=== PATIENT | female | born 1935 | race African-American/Black ===

== ENCOUNTER 2017-02-04 10:28 | Inpatient (IN) | payer MEDICARE, BC, MEDICAID ==
--- NOTE | 2017-02-04 10:47 | ER Document Report ---
ED Fall - General Information source: Emergency Med Personnel, Outside Facility Records TRAVEL OUTSIDE OF THE [place] IN LAST 30 DAYS: No - HPI Occurred: Just prior to arrival Where: Intermediate Context: Fell from sitting <NAZANIN NIELSON - Last Filed: 02/04/17 11:58> <RONALD RODRIGUEZ - Last Filed: 02/04/17 15:14> - General Chief Complaint: Fall Injury Stated Complaint: FALL Time Seen by Provider: 02/04/17 10:42 Notes: Patient is an 81 year old female who presents to the ED via EMS from [place] after a fall out of her wheelchair. LOC is unknown but patient was awake when she was found by nursing staff. Patient has frequent falls and the only reason she was sent to the ED for evaluation was due to the large bump on her forehead. Unable to obtain accurate history form patient as she is demented and only knows her name. (NAZANIN NIELSON) - Related data Allergies/Adverse Reactions: No Known Allergies Allergy (Verified 02/04/17 10:40) Home Medications: Current Home Medications Levothyroxine Sodium [Synthroid] 62.5 mcg PO SUTUTHSA@0600 02/04/17 [History] Past Medical History - General Information source: Patient - Social History Smoking Status: Unknown if Ever Smoked Family History: Reviewed & Not Pertinent - Past Medical History Cardiac Medical History: Reports: Hx Hypercholesterolemia, Hx Hypertension Denies: Hx Coronary Artery Disease, Hx Heart Attack Pulmonary Medical History: Reports: Hx Pneumonia Denies: Hx Asthma, Hx Bronchitis, Hx COPD Neurological Medical History: Denies: Hx Cerebrovascular Accident, Hx Seizures Musculoskeltal Medical History: Reports Hx Arthritis Psychiatric Medical History: Reports: Hx Dementia Past Surgical History: Reports: Hx Hysterectomy - Immunizations Hx Diphtheria, Pertussis, Tetanus Vaccination: Yes Hx Pneumococcal Vaccination: 10/16/13 <NAZANIN NIELSON - Last Filed: 02/04/17 11:58> Review of Systems - Review of Systems -: Yes ROS unobtainable due to patient's medical condition <NAZANIN NIELSON - Last Filed: 02/04/17 11:58> Physical Exam - HEENT Head: Abrasions - to right forehead, Other - hematoma to right forehead Eyes: Normal Extraocular movements intact: Yes Pupils: PERRL - Respiratory Respiratory status: No respiratory distress Breath sounds: Normal - Cardiovascular Rhythm: Regular Heart sounds: Normal auscultation Murmur: No - Abdominal Inspection: Normal Distension: No distension Tenderness: Nontender - Back Back: Normal - Extremities General upper extremity: Normal inspection, Normal ROM General lower extremity: Normal inspection, Normal ROM - Neurological Cognition: Other - oriented to person only, does not know anything else secondary to dementia - Psychological Associated symptoms: Other - demented - Skin Skin Temperature: Warm Skin Moisture: Dry Skin Color: Normal Skin irregularity: other - hematoma and abrasion to right forehead <ALVINO NIELSONRA - Last Filed: 02/04/17 11:58> - Vital signs Vitals: Temp Pulse Resp BP Pulse Ox 97.6 F 75 16 164/76 H 99 02/04/17 10:36 02/04/17 10:36 02/04/17 10:36 02/04/17 10:36 02/04/17 10:36 Course - Laboratory Result Diagrams: 02/04/17 10:50 02/04/17 10:50 - Consults Dr. Chowdhury Time consulted: 11:41 Consulted provider: will see as inpatient <NAZANIN NIELSON - Last Filed: 02/04/17 11:58> - Laboratory Result Diagrams: 02/04/17 10:50 02/04/17 10:50 - Diagnostic Test Radiology reviewed: Image reviewed, Reports reviewed <RONALD RODRIGUEZ - Last Filed: 02/04/17 15:14> - Re-evaluation Re-evalutation: 02/04/17 Patient is an 81-year-old female with a history of dementia who presents after hitting her head after falling out of her wheelchair. Patient is DNR. Patient is unable to have any discussion about her head injury. I spoken with her primary care doctor who will admit the patient here to observe her and recommend starting her on dexamethasone. Stable at time of admission. Patient has no complaints at this time. Vitals are stable. Patient's daughter, Cinthya,has been contacted and informed of diagnosis and treatment plan. Agrees with plan at this time. (RONALD RODRIGUEZ) - Vital Signs Vital signs: Temp Pulse Resp BP Pulse Ox 97.8 F 72 16 148/72 H 99 02/04/17 14:55 02/04/17 14:55 02/04/17 14:55 02/04/17 14:55 02/04/17 14:55 - Laboratory Laboratory results interpreted by me: 02/04/17 02/04/17 10:50 10:50 MCH 26.6 L RDW 15.9 H Sodium 145.5 H Carbon Dioxide 31 H BUN 24 H Glucose 125 H - Consults Dr. Chowdhury Reason for consultation: 02/04/17 1141 Discussed patient. Patient is accepted for admission. (NAZANIN NIELSON) Discharge <NAZANIN NIELSON - Last Filed: 02/04/17 11:58> - Discharge Admitting Provider: [facility] Admitted: Telemetry <RONALD RODRIGUEZ - Last Filed: 02/04/17 15:14> - Discharge Clinical Impression: Subdural hematoma Fall Qualifiers: Encounter type: initial encounter Qualified Code(s): W19.XXXA - Unspecified fall, initial encounter Condition: Stable Disposition: ADMITTED INPATIENT Scribe Attestation: 02/04/17 15:13 I personally performed the services described in the documentation, reviewed and edited the documentation which was dictated to the scribe in my presence, and it accurately records my words and actions. (RONALD RODRIGUEZ) Scribe Documentation - Scribe Written by Scribe:: gail Dempsey, 02/04/2017, 1047 acting as scribe for :: Corine <NAZANIN NIELSON - Last Filed: 02/04/17 11:58>
[2017-02-04 11:09] LABS: ABSOLUTE EOSINOPHILS # (AUTO) 0.3 10^3/uL (0.0-0.6); ABSOLUTE LYMPHOCYTES (AUTO) 1.7 10^3/uL (0.5-4.7); ABSOLUTE MONOCYTES (AUTO) 0.6 10^3/uL (0.1-1.4); ABSOLUTE NEUT (AUTO) 4.3 10^3/uL (1.7-8.2); BASOPHILS % (AUTO) 0.4 % (0-2); EOSINOPHILS % (AUTO) 4.6 % (0-6); HEMATOCRIT 37.2 % (36.0-47.0); HGB HCT DIFFERENCE -1.2; LYMPHOCYTES % (AUTO) 24.1 % (13-45); MEAN CORPUSCULAR HEMOGLOBIN 26.6 pg (27.0-33.4); MEAN CORPUSCULAR HGB CONC 32.3 g/dL (32.0-36.0); MEAN CORPUSCULAR VOLUME 82 fl (80-97); MONOCYTES % (AUTO) 9.3 % (3-13); RED BLOOD COUNT 4.53 10^6/uL (3.72-5.28); RED CELL DISTRIBUTION WIDTH 15.9 % (11.5-14.0); SEGMENTED NEUTROPHILS % (AUTO) 61.6 % (42-78)
[2017-02-04 11:17] LABS: PROTHROMBIN TIME 12.7 SEC (11.4-15.4)
[2017-02-04 11:18] LABS: PARTIAL THROMBOPLASTIN TIME 31.4 SEC (23.5-35.8)
[2017-02-04 11:33] LABS: ALANINE AMINOTRANSFERASE 30 U/L (9-52); ALBUMIN 4.1 g/dL (3.5-5.0); ALKALINE PHOSPHATASE 88 U/L (38-126); ANION GAP 11 (5-19); ASPARTATE AMINO TRANSFERASE 25 U/L (14-36); BILIRUBIN,DIRECT 0.3 mg/dL (0.0-0.4); BILIRUBIN,TOTAL 0.3 mg/dL (0.2-1.3); BLOOD UREA NITROGEN 24 mg/dL (7-20); CALCIUM 9.9 mg/dL (8.4-10.2); CARBON DIOXIDE 31 mmol/L (22-30); CHLORIDE 104 mmol/L (98-107); CREATININE RESULT 0.81 mg/dL (0.52-1.25); GLUCOSE 125 mg/dL (75-110); POTASSIUM 4.1 mmol/L (3.6-5.0); SODIUM 145.5 mmol/L (137-145); TOTAL PROTEIN 6.7 g/dL (6.3-8.2)
[2017-02-04] MEDS ORDERED: DEXAMETHASONE 0.5 MG TABLET PO ONE (11:43)
--- NOTE | 2017-02-04 11:47 | RADIOLOGY REPORT (SQ) ---
EXAM DESCRIPTION: CT HEAD WITHOUT COMPLETED DATE/TIME: 02/04/2017 11:13 am REASON FOR STUDY: fall, head injury COMPARISON: 04/01/2015 TECHNIQUE: Axial images acquired through the brain without intravenous contrast. Images reviewed wi th bone, brain and subdural windows. Images stored on PACS. All CT scanners at this facility use dose modulation, iterative reconstruction, and/or weight based d osing when appropriate to reduce radiation dose to as low as reasonably achievable (ALARA). [facility]: Dose Right [facility]: CareDose [facility]: Dose Right [facility]: Teradose 4D [facility]: [employer] RADIATION DOSE: Up-to-date CT equipment and radiation dose reduction techniques were employed. CTDIv ol: 28.0 mGy. DLP: 560 mGy-cm. mGy. LIMITATIONS: None. FINDINGS: VENTRICLES: Mildly prominent, stable compared to 04/01/2015. CEREBRUM: No acute brain parenchymal hemorrhage. No CT evidence of acute ischemic change. There is a right-sided subdural hemorrhage measuring up to 11 mm in thick over the right frontotempor al region. Minimal local mass effect. No subfalcine shift. CEREBELLUM: No masses. No hemorrhage. No alteration of density. No evidence for acute infarction. EXTRAAXIAL SPACES: A right frontotemporal acute subdural hemorrhage is present, measuring up to 11 mm in thickness over the right posterior frontal convexity. This report was called to Dr. Pool, 11 30 hours 02/12/2017. ORBITS AND GLOBE: No intra- or extraconal masses. Normal contour of globe without masses. CALVARIUM: No fracture. PARANASAL SINUSES: No fluid or mucosal thickening. SOFT TISSUES: Right frontal scalp hematoma. No underlying skull fracture. OTHER: No other significant finding. IMPRESSION: Right fronto temporal acute subdural hemorrhage measuring 11 mm in thickness. Right frontal scalp hematoma without underlying skull fracture EVIDENCE OF ACUTE STROKE: NO. COMMENT: Pertinent findings on the imaging study reported as a CRITICAL RESULT to RONALD Nevarez DO at11:31 on 02/04/2017. Category of Critical Result: Right-sided acute subdural hemorrhage Quality ID # [id number]: Final reports with documentation of one or more dose reduction techniques (e.g., Au tomated exposure control, adjustment of the mA and/or kV according to patient size, use of iterative reconstruction technique) TECHNICAL DOCUMENTATION: JOB ID: [id number] [place] [address] [employer]- All Rights Reserved
[2017-02-04] MEDS ORDERED: GLUCAGON,HUMAN RECOMB 1 MG INJ IM PRN (17:32)
[2017-02-04] MEDS ORDERED: DEXTROSE 50%-WATER 25 GM/50 ML DISP.SYRIN IV PRN ×2 (17:32)
[2017-02-04] MEDS ORDERED: DEXTROSE 40% GEL 15 GM TUBE PO PRN ×2 (17:32)
[2017-02-04] MEDS ORDERED: TRAMADOL HCL 50 MG TABLET PO PRN (17:32)
[2017-02-04 18:14] LABS: PROTHROMBIN TIME 12.9 SEC (11.4-15.4)
[2017-02-04 18:15] LABS: PARTIAL THROMBOPLASTIN TIME 34.5 SEC (23.5-35.8)
--- NOTE | 2017-02-04 18:23 | PDOC H&P ---
History of Present Illness Admission Date/PCP: 02/04/17 17:23 FRANCISCO RUANO MD History of Present Illness: ZACK PAZ is a 81 year old female, she has advanced dementia resident of the [facility] at [place], a fall risk, she was found on the floor in the [facility], she apparently fell on the face she was referred to the emergency room for evaluation. In the emergency room CT head was done it showed a right frontal temporal acute subdural hemorrhage measuring 11 mm in thickness with right frontal scalp hematoma there was no skull fracture. Patient is severely demented, a DNR status could not communicate intelligently with this patient she is expressing incompressible words. I spoke to the patient's daughter about her mother's condition, she would manage conservatively with intravenous Decadron she is not particularly a candidate for intracranial surgery overall prognosis is guarded to poor.. Past Medical History Cardiac Medical History: Reports: Hyperlipidema, Hypertension Pulmonary Medical History: Reports: Pneumonia Endocrine Medical History: Reports: Diabetes Mellitus Type 2 Musculoskeltal Medical History: Reports: Arthritis Psychiatric Medical History: Reports: Dementia Hematology: Reports: Anemia Past Surgical History Past Surgical History: Reports: Hysterectomy Social History Lives with: [facility] Smoking Status: Never Smoker - Advance Directive Resuscitation Status: Do Not Resuscitate Family History Family History: Reviewed & Not Pertinent Parental Family History Reviewed: Yes Children Family History Reviewed: Yes Sibling(s) Family History Reviewed.: Yes Medication/Allergy Home Medications: Amlodipine Besylate [Norvasc 5 mg Tablet] 5 mg PO DAILY 12/14/14 Donepezil HCl [Aricept] 10 mg PO QHS 12/14/14 Folic Acid [Folvite 1 mg Tablet] 1 mg PO DAILY 12/14/14 Insulin Aspart [Novolog Insulin 100 Unit/1 ml 10 ml] 0 unit SUBCUT .SLD SCALE Levothyroxine Sodium [Synthroid 50 Mcg Tablet] 50 mcg PO MOWEFR@0600 12/14/14 Memantine HCl [Namenda 10 mg Tablet] 10 mg PO Q12 12/14/14 Metformin HCl [Glucophage 500 mg Tablet] 500 mg PO Q12 12/14/14 Potassium Chloride 20 meq PO BID 12/14/14 Quetiapine Fumarate [Seroquel 25 mg Tablet] 12.5 mg PO QHS 12/14/14 Sennosides/Docusate Sodium [Senna-S Tablet] 1 each PO Q12 12/14/14 Rosuvastatin Calcium [Crestor 20 mg Tablet] 20 mg PO QHS 11/20/15 Levothyroxine Sodium [Synthroid] 62.5 mcg PO SUTUTHSA@0600 02/04/17 Allergies/Adverse Reactions: No Known Allergies Allergy (Verified 02/04/17 10:40) Review of Systems ROS unobtainable: Due to mental status Physical Exam Vital Signs: Temp Pulse Resp BP Pulse Ox 97.4 F 81 18 131/85 H 97 02/04/17 17:01 02/04/17 17:01 02/04/17 17:01 02/04/17 17:01 02/04/17 17:01 General appearance: PRESENT: no acute distress, well-developed, well-nourished Head exam: PRESENT: other - There is a bruise in the frontal aspect of the head Eye exam: ABSENT: scleral icterus Ear exam: PRESENT: normal external ear exam Respiratory exam: PRESENT: clear to auscultation sandra Cardiovascular exam: PRESENT: RRR, +S1, +S2 Vascular exam: PRESENT: normal capillary refill GI/Abdominal exam: PRESENT: normal bowel sounds, soft Rectal exam: PRESENT: deferred Neurological exam: PRESENT: alert, CN II-XII grossly intact. ABSENT: motor sensory deficit Skin exam: PRESENT: dry, intact, warm Results Impressions: Head CT 02/04/17 10:42 IMPRESSION: Right fronto temporal acute subdural hemorrhage measuring 11 mm in thickness. Right frontal scalp hematoma without underlying skull fracture EVIDENCE OF ACUTE STROKE: NO. Assessment & Plan - Diagnosis (1) Acute subdural hematoma Is this a current diagnosis for this admission?: Yes Plan: Patient is admitted for the management of acute subdural hemorrhage, she is started on intravenous Decadron and also Keppra for seizure prophylaxis (2) Subdural hematoma, post-traumatic Qualifiers: Encounter type: initial encounter Loss of consciousness presence/duration: without LOC Qualified Code(s): S06.5X0A - Traumatic subdural hemorrhage without loss of consciousness, initial encounter Is this a current diagnosis for this admission?: Yes (3) Fall Qualifiers: Encounter type: initial encounter Qualified Code(s): W19.XXXA - Unspecified fall, initial encounter Is this a current diagnosis for this admission?: Yes
[2017-02-04 18:39] LABS: LIPASE 119.5 U/L (23-300); MAGNESIUM 1.9 mg/dL (1.6-2.3); PHOSPHORUS 3.9 mg/dL (2.5-4.5)
[2017-02-04 18:49] LABS: CREATINE KINASE MB 2.48 ng/mL (<4.55)
[2017-02-04 18:51] LABS: TROPONIN I < 0.012 ng/mL
[2017-02-04 19:07] LABS: THYROID STIMULATING HORMONE 0.4 uIU/mL (0.47-4.68)
[2017-02-04 19:52] LABS: APPEARANCE,URINE CLEAR; BILIRUBIN,URINE NEGATIVE (NEGATIVE); GLUCOSE, URINE NEGATIVE (NEGATIVE); KETONES,URINE NEGATIVE (NEGATIVE); LEUKOCYTE ESTERASE,URINE NEGATIVE (NEGATIVE); NITRITE,URINE NEGATIVE (NEGATIVE); PROTEIN,URINE 30 mg/dL (NEGATIVE); URINE SPECIFIC GRAVITY 1.014; UROBILINOGEN,URINE NEGATIVE mg/dL (<2.0)
[2017-02-04 20:07] LABS: URINE BARBITURATES SCREEN NEGATIVE; URINE METHADONE SCREEN NEGATIVE; URINE OPIATES LOW NEGATIVE; URINE PHENCYCLIDINE SCREEN NEGATIVE
[2017-02-04] MEDS: AMLODIPINE BESYLATE 5 MG TABLET PO SCH (21:40)
[2017-02-04] MEDS: QUETIAPINE FUMARATE 25 MG TABLET PO SCH (21:41)
[2017-02-04] MEDS: DONEPEZIL HCL 5 MG TABLET PO SCH (21:41)
[2017-02-04] MEDS: FOLIC ACID 1 MG TABLET PO SCH (21:42)
[2017-02-04] MEDS: MEMANTINE HCL 10 MG TABLET PO SCH (21:42)
[2017-02-04] MEDS: METFORMIN HCL 500 MG TABLET PO SCH (21:42)
[2017-02-04] MEDS: DEXAMETHASONE SOD PHOSPHATE INJ 4 MG/1 ML VIAL IV SCH (21:42)
[2017-02-04] MEDS: LEVETIRACETAM 500 MG TABLET PO SCH (21:42)
[2017-02-04] MEDS ORDERED: (PENDING PHARMACY ID) (Donepezil Hcl [Aricept] 10 MG) PO SCH (22:00)
[2017-02-04] MEDS: INSULIN LISPRO 100 UNIT/ML 3 ML VIAL SUBCUT PRN (22:21)
[2017-02-05 00:21] LABS: CREATINE KINASE MB 2.18 ng/mL (<4.55)
[2017-02-05 00:41] LABS: TROPONIN I < 0.012 ng/mL
[2017-02-05] MEDS: DEXAMETHASONE SOD PHOSPHATE INJ 4 MG/1 ML VIAL IV SCH ×4 (03:29→22:48)
[2017-02-05] MEDS ORDERED: LEVOTHYROXINE SODIUM PO SCH (06:00)
[2017-02-05 06:41] LABS: ABSOLUTE LYMPHOCYTES (AUTO) 0.9 10^3/uL (0.5-4.7); ABSOLUTE MONOCYTES (AUTO) 0.1 10^3/uL (0.1-1.4); ABSOLUTE NEUT (AUTO) 7.9 10^3/uL (1.7-8.2); BASOPHILS % (AUTO) 0.3 % (0-2); EOSINOPHILS % (AUTO) 0.1 % (0-6); HEMATOCRIT 35.4 % (36.0-47.0); HEMOGLOBIN 11.4 g/dL (12.0-15.5); HGB HCT DIFFERENCE -1.2; LYMPHOCYTES % (AUTO) 9.6 % (13-45); MEAN CORPUSCULAR HEMOGLOBIN 26.3 pg (27.0-33.4); MEAN CORPUSCULAR HGB CONC 32.2 g/dL (32.0-36.0); MEAN CORPUSCULAR VOLUME 82 fl (80-97); MONOCYTES % (AUTO) 1.4 % (3-13); RED BLOOD COUNT 4.34 10^6/uL (3.72-5.28); RED CELL DISTRIBUTION WIDTH 15.9 % (11.5-14.0); SEGMENTED NEUTROPHILS % (AUTO) 88.6 % (42-78); WHITE BLOOD COUNT 8.9 10^3/uL (4.0-10.5)
[2017-02-05 06:54] LABS: ALANINE AMINOTRANSFERASE 25 U/L (9-52); ALBUMIN 4.3 g/dL (3.5-5.0); ALKALINE PHOSPHATASE 94 U/L (38-126); ANION GAP 14 (5-19); ASPARTATE AMINO TRANSFERASE 25 U/L (14-36); BILIRUBIN,DIRECT 0.4 mg/dL (0.0-0.4); BILIRUBIN,TOTAL 0.4 mg/dL (0.2-1.3); BLOOD UREA NITROGEN 23 mg/dL (7-20); CARBON DIOXIDE 25 mmol/L (22-30); CHLORIDE 102 mmol/L (98-107); CREATINE KINASE 134 U/L (30-135); CREATININE RESULT 0.81 mg/dL (0.52-1.25); GLUCOSE 141 mg/dL (75-110); POTASSIUM 4.5 mmol/L (3.6-5.0); SODIUM 141.2 mmol/L (137-145); TOTAL PROTEIN 7.1 g/dL (6.3-8.2)
[2017-02-05 07:01] LABS: CREATINE KINASE MB 1.79 ng/mL (<4.55)
[2017-02-05 07:05] LABS: TROPONIN I < 0.012 ng/mL
[2017-02-05] MEDS: LEVETIRACETAM 500 MG TABLET PO SCH ×2 (09:59→22:48)
[2017-02-05] MEDS: METFORMIN HCL 500 MG TABLET PO SCH ×2 (10:01→22:48)
[2017-02-05] MEDS: MEMANTINE HCL 10 MG TABLET PO SCH ×2 (10:01→22:48)
[2017-02-05] MEDS: INSULIN LISPRO 100 UNIT/ML 3 ML VIAL SUBCUT PRN (13:01)
--- NOTE | 2017-02-05 21:04 | PDOC PROGRESS REPORT ---
Subjective Progress Note for:: 02/05/17 Subjective:: Patient was admitted because of subdural hematoma, she is on intravenous Decadron, she was seen by the bedside, she is alert Physical Exam Vital Signs: Temp Pulse Resp BP Pulse Ox 97.6 F 81 16 86/37 L 100 02/05/17 20:00 02/05/17 20:00 02/05/17 20:00 02/05/17 20:00 02/05/17 12:13 Intake & Output 02/04/17 02/05/17 02/06/17 06:59 06:59 06:59 Intake Total 0 420 Output Total 220 Balance -220 420 Weight 48.3 kg General appearance: PRESENT: no acute distress Eye exam: PRESENT: PERRLA Respiratory exam: PRESENT: clear to auscultation sandra Cardiovascular exam: PRESENT: +S1, +S2 GI/Abdominal exam: PRESENT: soft Neurological exam: PRESENT: alert Results Laboratory Results: 02/05/17 05:51 02/05/17 05:51 02/05/17 02/05/17 05:51 05:51 WBC 8.9 RBC 4.34 Hgb 11.4 L Hct 35.4 L MCV 82 MCH 26.3 L MCHC 32.2 RDW 15.9 H Plt Count 260 Seg Neutrophils % 88.6 H Lymphocytes % 9.6 L Monocytes % 1.4 L Eosinophils % 0.1 Basophils % 0.3 Absolute Neutrophils 7.9 Absolute Lymphocytes 0.9 Absolute Monocytes 0.1 Absolute Eosinophils 0.0 Absolute Basophils 0.0 Sodium 141.2 Potassium 4.5 Chloride 102 Carbon Dioxide 25 Anion Gap 14 BUN 23 H Creatinine 0.81 Est GFR ( Amer) > 60 Est GFR (Non-Af Amer) > 60 Glucose 141 H Calcium 10.0 Total Bilirubin 0.4 AST 25 ALT 25 Alkaline Phosphatase 94 Total Protein 7.1 Albumin 4.3 02/04/17 02/04/17 02/04/17 17:51 17:51 17:51 Creatine Kinase 161 H CK-MB (CK-2) 2.48 Troponin I < 0.012 NT-Pro-B Natriuret Pep 200 02/04/17 02/04/17 02/05/17 23:44 23:44 05:51 Creatine Kinase 152 H 134 CK-MB (CK-2) 2.18 Troponin I < 0.012 NT-Pro-B Natriuret Pep 02/05/17 05:51 Creatine Kinase CK-MB (CK-2) 1.79 Troponin I < 0.012 NT-Pro-B Natriuret Pep Impressions: Head CT 02/04/17 10:42 IMPRESSION: Right fronto temporal acute subdural hemorrhage measuring 11 mm in thickness. Right frontal scalp hematoma without underlying skull fracture EVIDENCE OF ACUTE STROKE: NO. Assessment & Plan - Diagnosis (1) Acute subdural hematoma Is this a current diagnosis for this admission?: Yes (2) Subdural hematoma, post-traumatic Qualifiers: Encounter type: initial encounter Loss of consciousness presence/duration: without LOC Qualified Code(s): S06.5X0A - Traumatic subdural hemorrhage without loss of consciousness, initial encounter Is this a current diagnosis for this admission?: Yes (3) Fall Qualifiers: Encounter type: initial encounter Qualified Code(s): W19.XXXA - Unspecified fall, initial encounter Is this a current diagnosis for this admission?: Yes Plan: Continue treatment
[2017-02-05] MEDS: AMLODIPINE BESYLATE 5 MG TABLET PO SCH (22:08)
[2017-02-05] MEDS: QUETIAPINE FUMARATE 25 MG TABLET PO SCH (22:48)
[2017-02-05] MEDS: DONEPEZIL HCL 5 MG TABLET PO SCH (22:48)
[2017-02-05] MEDS: FOLIC ACID 1 MG TABLET PO SCH (22:50)
[2017-02-06] MEDS: DEXAMETHASONE SOD PHOSPHATE INJ 4 MG/1 ML VIAL IV SCH ×4 (03:04→20:53)
[2017-02-06] MEDS: LEVOTHYROXINE SODIUM 0.05 MG TABLET PO SCH (06:28)
[2017-02-06 06:30] LABS: ABSOLUTE MONOCYTES (AUTO) 0.4 10^3/uL (0.1-1.4); ABSOLUTE NEUT (AUTO) 14.4 10^3/uL (1.7-8.2); BASOPHILS % (AUTO) 0.1 % (0-2); HEMATOCRIT 32.8 % (36.0-47.0); HEMOGLOBIN 10.5 g/dL (12.0-15.5); HGB HCT DIFFERENCE -1.3; LYMPHOCYTES % (AUTO) 6.5 % (13-45); MEAN CORPUSCULAR HEMOGLOBIN 25.9 pg (27.0-33.4); MEAN CORPUSCULAR HGB CONC 31.9 g/dL (32.0-36.0); MEAN CORPUSCULAR VOLUME 81 fl (80-97); MONOCYTES % (AUTO) 2.3 % (3-13); RED BLOOD COUNT 4.04 10^6/uL (3.72-5.28); RED CELL DISTRIBUTION WIDTH 15.8 % (11.5-14.0); SEGMENTED NEUTROPHILS % (AUTO) 91.1 % (42-78); WHITE BLOOD COUNT 15.8 10^3/uL (4.0-10.5)
[2017-02-06 06:41] LABS: ALANINE AMINOTRANSFERASE 17 U/L (9-52); ALBUMIN 3.5 g/dL (3.5-5.0); ALKALINE PHOSPHATASE 77 U/L (38-126); ANION GAP 12 (5-19); ASPARTATE AMINO TRANSFERASE 20 U/L (14-36); BILIRUBIN,DIRECT 0.3 mg/dL (0.0-0.4); BILIRUBIN,TOTAL 0.3 mg/dL (0.2-1.3); BLOOD UREA NITROGEN 24 mg/dL (7-20); CALCIUM 9.7 mg/dL (8.4-10.2); CARBON DIOXIDE 24 mmol/L (22-30); CHLORIDE 105 mmol/L (98-107); CREATININE RESULT 0.69 mg/dL (0.52-1.25); GLUCOSE 140 mg/dL (75-110); POTASSIUM 4.3 mmol/L (3.6-5.0); SODIUM 141.2 mmol/L (137-145); TOTAL PROTEIN 6.1 g/dL (6.3-8.2)
[2017-02-06] MEDS: MEMANTINE HCL 10 MG TABLET PO SCH ×2 (09:39→22:05)
[2017-02-06] MEDS: METFORMIN HCL 500 MG TABLET PO SCH ×2 (09:39→22:05)
[2017-02-06] MEDS: INSULIN LISPRO 100 UNIT/ML 3 ML VIAL SUBCUT PRN (09:39)
[2017-02-06] MEDS: LEVETIRACETAM 500 MG TABLET PO SCH ×2 (09:39→22:05)
--- NOTE | 2017-02-06 19:09 | PDOC PROGRESS REPORT ---
Subjective Progress Note for:: 02/06/17 Subjective:: She was seen by the bedside, she was being fed the nursing staff, urine output is adequate, repeat CT to be done today Physical Exam Vital Signs: Temp Pulse Resp BP Pulse Ox 97.2 F 68 18 141/72 H 100 02/06/17 16:49 02/06/17 16:49 02/06/17 16:49 02/06/17 16:49 02/06/17 16:49 Intake & Output 02/05/17 02/06/17 02/07/17 06:59 06:59 06:59 Intake Total 0 420 180 Output Total 220 1000 200 Balance -220 -580 -20 Weight 48.3 kg 52.9 kg General appearance: PRESENT: no acute distress Eye exam: PRESENT: PERRLA Respiratory exam: PRESENT: clear to auscultation sandra Cardiovascular exam: PRESENT: +S1, +S2 GI/Abdominal exam: PRESENT: soft Neurological exam: PRESENT: alert Results Laboratory Results: 02/06/17 05:33 02/06/17 05:33 02/06/17 02/06/17 05:33 05:33 WBC 15.8 H RBC 4.04 Hgb 10.5 L Hct 32.8 L MCV 81 MCH 25.9 L MCHC 31.9 L RDW 15.8 H Plt Count 198 Seg Neutrophils % 91.1 H Lymphocytes % 6.5 L Monocytes % 2.3 L Eosinophils % 0.0 Basophils % 0.1 Absolute Neutrophils 14.4 H Absolute Lymphocytes 1.0 Absolute Monocytes 0.4 Absolute Eosinophils 0.0 Absolute Basophils 0.0 Sodium 141.2 Potassium 4.3 Chloride 105 Carbon Dioxide 24 Anion Gap 12 BUN 24 H Creatinine 0.69 Est GFR ( Amer) > 60 Est GFR (Non-Af Amer) > 60 Glucose 140 H Calcium 9.7 Total Bilirubin 0.3 AST 20 ALT 17 Alkaline Phosphatase 77 Total Protein 6.1 L Albumin 3.5 02/04/17 19:03 Catheterized Urine Urine Culture - Final NO GROWTH 2 DAYS 02/04/17 02/04/17 02/04/17 17:51 17:51 17:51 Creatine Kinase 161 H CK-MB (CK-2) 2.48 Troponin I < 0.012 NT-Pro-B Natriuret Pep 200 02/04/17 02/04/17 02/05/17 23:44 23:44 05:51 Creatine Kinase 152 H 134 CK-MB (CK-2) 2.18 Troponin I < 0.012 NT-Pro-B Natriuret Pep 02/05/17 05:51 Creatine Kinase CK-MB (CK-2) 1.79 Troponin I < 0.012 NT-Pro-B Natriuret Pep Impressions: Head CT 02/04/17 10:42 IMPRESSION: Right fronto temporal acute subdural hemorrhage measuring 11 mm in thickness. Right frontal scalp hematoma without underlying skull fracture EVIDENCE OF ACUTE STROKE: NO. Assessment & Plan - Diagnosis (1) Acute subdural hematoma Is this a current diagnosis for this admission?: Yes (2) Subdural hematoma, post-traumatic Qualifiers: Encounter type: initial encounter Loss of consciousness presence/duration: without LOC Qualified Code(s): S06.5X0A - Traumatic subdural hemorrhage without loss of consciousness, initial encounter Is this a current diagnosis for this admission?: Yes (3) Fall Qualifiers: Encounter type: initial encounter Qualified Code(s): W19.XXXA - Unspecified fall, initial encounter Is this a current diagnosis for this admission?: Yes - Plan Summary Plan Summary: CT head is ordered, she will continue Decadron
--- NOTE | 2017-02-06 19:47 | RADIOLOGY REPORT (SQ) ---
EXAM DESCRIPTION: CT HEAD WITHOUT COMPLETED DATE/TIME: 02/06/2017 7:34 pm REASON FOR STUDY: subdural hemorrhage COMPARISON: None. TECHNIQUE: Axial images acquired through the brain without intravenous contrast. Images reviewed wi th bone, brain and subdural windows. Images stored on PACS. All CT scanners at this facility use dose modulation, iterative reconstruction, and/or weight based d osing when appropriate to reduce radiation dose to as low as reasonably achievable (ALARA). [facility]: Dose Right [facility]: CareDose [facility]: Dose Right [facility]: Teradose 4D [facility]: Smart [employer] RADIATION DOSE: Up-to-date CT equipment and radiation dose reduction techniques were employed. CTDIv ol: 22.1 - 22.1 mGy. DLP: 955 mGy-cm.mGy. LIMITATIONS: None. FINDINGS: VENTRICLES: Prominent. CEREBRUM: No masses. No hemorrhage. No midline shift. Areas of low density in the white matter mos t likely due to chronic micro-vascular ischemic change. No evidence for acute infarction. CEREBELLUM: No masses. No hemorrhage. No alteration of density. No evidence for acute infarction. EXTRAAXIAL SPACES: Evolving right subdural hematoma which now extends more posteriorly and tracks smith ng the right posterior intra cerebral falx. Overall maximal thickness is less compared to the prior study measuring 3 mm where previously measured 5 mm. No definite acute hemorrhage. ORBITS AND GLOBE: No intra- or extraconal masses. Normal contour of globe without masses. CALVARIUM: No fracture. PARANASAL SINUSES: No fluid or mucosal thickening. SOFT TISSUES: No mass or hematoma. OTHER: No other significant finding. IMPRESSION: EVOLVING RIGHT SUBDURAL HEMATOMA. ALTHOUGH THE DISTRIBUTION IS CHANGE COMPARED TO THE P RIOR STUDY WITH MORE BLOOD PRODUCTS SEEN POSTERIORLY, OVERALL THICKNESS OF HEMATOMA HAS DECREASED SUG GESTING REDISTRIBUTION OF BLOOD PRODUCTS RATHER THAN NEW HEMORRHAGE. NO ADDITIONAL ACUTE OR SIGNIFICANT FINDINGS. EVIDENCE OF ACUTE STROKE: NO. TECHNICAL DOCUMENTATION: JOB ID: [id number] Quality ID # [id number]: Final reports with documentation of one or more dose reduction techniques (e.g., Au tomated exposure control, adjustment of the mA and/or kV according to patient size, use of iterative reconstruction technique) 2010 [employer]- All Rights Reserved
[2017-02-06] MEDS: FOLIC ACID 1 MG TABLET PO SCH (22:05)
[2017-02-06] MEDS: DONEPEZIL HCL 5 MG TABLET PO SCH (22:05)
[2017-02-06] MEDS: QUETIAPINE FUMARATE 25 MG TABLET PO SCH (22:05)
[2017-02-06] MEDS: AMLODIPINE BESYLATE 5 MG TABLET PO SCH (22:42)
[2017-02-07] MEDS: DEXAMETHASONE SOD PHOSPHATE INJ 4 MG/1 ML VIAL IV SCH ×4 (02:25→21:39)
[2017-02-07 05:22] LABS: ABSOLUTE BASOPHILS # (AUTO) 0.1 10^3/uL (0.0-0.2); ABSOLUTE EOSINOPHILS # (AUTO) 0.1 10^3/uL (0.0-0.6); ABSOLUTE LYMPHOCYTES (AUTO) 0.9 10^3/uL (0.5-4.7); ABSOLUTE MONOCYTES (AUTO) 0.4 10^3/uL (0.1-1.4); ABSOLUTE NEUT (AUTO) 13.2 10^3/uL (1.7-8.2); BASOPHILS % (AUTO) 0.5 % (0-2); EOSINOPHILS % (AUTO) 0.4 % (0-6); HEMATOCRIT 34.4 % (36.0-47.0); HEMOGLOBIN 11.1 g/dL (12.0-15.5); HGB HCT DIFFERENCE -1.1; MEAN CORPUSCULAR HEMOGLOBIN 26.1 pg (27.0-33.4); MEAN CORPUSCULAR HGB CONC 32.3 g/dL (32.0-36.0); MEAN CORPUSCULAR VOLUME 81 fl (80-97); MONOCYTES % (AUTO) 2.5 % (3-13); RED BLOOD COUNT 4.26 10^6/uL (3.72-5.28); RED CELL DISTRIBUTION WIDTH 15.8 % (11.5-14.0); SEGMENTED NEUTROPHILS % (AUTO) 90.6 % (42-78); WHITE BLOOD COUNT 14.5 10^3/uL (4.0-10.5)
[2017-02-07 05:32] LABS: ALANINE AMINOTRANSFERASE 28 U/L (9-52); ALBUMIN 3.9 g/dL (3.5-5.0); ALKALINE PHOSPHATASE 77 U/L (38-126); ANION GAP 13 (5-19); ASPARTATE AMINO TRANSFERASE 21 U/L (14-36); BILIRUBIN,DIRECT 0.3 mg/dL (0.0-0.4); BILIRUBIN,TOTAL 0.3 mg/dL (0.2-1.3); BLOOD UREA NITROGEN 29 mg/dL (7-20); CALCIUM 9.3 mg/dL (8.4-10.2); CARBON DIOXIDE 27 mmol/L (22-30); CHLORIDE 101 mmol/L (98-107); CREATININE RESULT 0.75 mg/dL (0.52-1.25); GLUCOSE 146 mg/dL (75-110); POTASSIUM 4.1 mmol/L (3.6-5.0); SODIUM 141.3 mmol/L (137-145); TOTAL PROTEIN 6.8 g/dL (6.3-8.2)
[2017-02-07] MEDS: LEVETIRACETAM 500 MG TABLET PO SCH (09:41)
[2017-02-07] MEDS: METFORMIN HCL 500 MG TABLET PO SCH (09:41)
[2017-02-07] MEDS: MEMANTINE HCL 10 MG TABLET PO SCH ×2 (09:41→23:59)
--- NOTE | 2017-02-07 11:14 | PDOC PROGRESS REPORT ---
Subjective Progress Note for:: 02/07/17 Subjective:: This is a 81-year-old female with a significant history of dementia currently with the [facility] status post fall and subdural hematoma was admitting in the hospital. Since CT of the head was done yesterday with changing the distribution of the blood but nothing increasing any sign and no midline shift Patient's according to the nursing staff doing fair no other changes Patient's per Dr. Velasquez currently DNR/DNI Physical Exam Vital Signs: Temp Pulse Resp BP Pulse Ox 97.3 F 81 12 112/66 100 02/07/17 07:58 02/07/17 07:58 02/07/17 07:58 02/07/17 07:58 02/07/17 07:58 Intake & Output 02/06/17 02/07/17 02/08/17 06:59 06:59 06:59 Intake Total 420 320 Output Total 1000 550 Balance -580 -230 Weight 52.9 kg 50 kg General appearance: PRESENT: no acute distress Eye exam: PRESENT: PERRLA Respiratory exam: PRESENT: clear to auscultation sandra Cardiovascular exam: PRESENT: +S1, +S2 GI/Abdominal exam: PRESENT: normal bowel sounds, soft Extremities exam: ABSENT: pedal edema Neurological exam: PRESENT: alert, altered, awake Skin exam: PRESENT: dry Results Laboratory Results: 02/07/17 04:33 02/07/17 04:33 02/07/17 02/07/17 04:33 04:33 WBC 14.5 H RBC 4.26 Hgb 11.1 L Hct 34.4 L MCV 81 MCH 26.1 L MCHC 32.3 RDW 15.8 H Plt Count 250 Seg Neutrophils % 90.6 H Lymphocytes % 6.0 L Monocytes % 2.5 L Eosinophils % 0.4 Basophils % 0.5 Absolute Neutrophils 13.2 H Absolute Lymphocytes 0.9 Absolute Monocytes 0.4 Absolute Eosinophils 0.1 Absolute Basophils 0.1 Sodium 141.3 Potassium 4.1 Chloride 101 Carbon Dioxide 27 Anion Gap 13 BUN 29 H Creatinine 0.75 Est GFR ( Amer) > 60 Est GFR (Non-Af Amer) > 60 Glucose 146 H Calcium 9.3 Total Bilirubin 0.3 AST 21 ALT 28 Alkaline Phosphatase 77 Total Protein 6.8 Albumin 3.9 02/04/17 19:03 Catheterized Urine Urine Culture - Final NO GROWTH 2 DAYS 02/04/17 02/04/17 02/04/17 17:51 17:51 17:51 Creatine Kinase 161 H CK-MB (CK-2) 2.48 Troponin I < 0.012 NT-Pro-B Natriuret Pep 200 02/04/17 02/04/17 02/05/17 23:44 23:44 05:51 Creatine Kinase 152 H 134 CK-MB (CK-2) 2.18 Troponin I < 0.012 NT-Pro-B Natriuret Pep 02/05/17 05:51 Creatine Kinase CK-MB (CK-2) 1.79 Troponin I < 0.012 NT-Pro-B Natriuret Pep Impressions: Head CT 02/06/17 00:00 IMPRESSION: EVOLVING RIGHT SUBDURAL HEMATOMA. ALTHOUGH THE DISTRIBUTION IS CHANGE COMPARED TO THE PRIOR STUDY WITH MORE BLOOD PRODUCTS SEEN POSTERIORLY, OVERALL THICKNESS OF HEMATOMA HAS DECREASED SUGGESTING REDISTRIBUTION OF BLOOD PRODUCTS RATHER THAN NEW HEMORRHAGE. NO ADDITIONAL ACUTE OR SIGNIFICANT FINDINGS. EVIDENCE OF ACUTE STROKE: NO. Assessment & Plan - Diagnosis (1) Acute subdural hematoma Is this a current diagnosis for this admission?: Yes Plan: Patient is currently stable we will continues to IV steroid and repeat the CT of the head in the next 48 hours As per patient is currently a DNR/DNI (2) Fall Qualifiers: Encounter type: initial encounter Qualified Code(s): W19.XXXA - Unspecified fall, initial encounter Is this a current diagnosis for this admission?: Yes - Time Time Spent with patient: 15-24 minutes Medications reviewed and adjusted accordingly: Yes Anticipated discharge: SNF - Inpatient Certification Medical Necessity: Need Close Monitoring Due to Risk of Patient Decompensation Post Hospital Care: D/C Assistant Site Manager Documentation - Plan Summary Plan Summary: Continues to IV steroid in the next 48 hours we will taper the dose
[2017-02-07] MEDS: INSULIN LISPRO 100 UNIT/ML 3 ML VIAL SUBCUT PRN (18:52)
[2017-02-08] MEDS: AMLODIPINE BESYLATE 5 MG TABLET PO SCH ×2 (00:01→21:29)
[2017-02-08] MEDS: DONEPEZIL HCL 5 MG TABLET PO SCH ×2 (00:01→21:29)
[2017-02-08] MEDS: METFORMIN HCL 500 MG TABLET PO SCH ×3 (00:02→21:29)
[2017-02-08] MEDS: DEXAMETHASONE SOD PHOSPHATE INJ 4 MG/1 ML VIAL IV SCH ×4 (03:40→20:59)
[2017-02-08] MEDS: LEVETIRACETAM 500 MG TABLET PO SCH ×3 (09:51→21:29)
[2017-02-08] MEDS: MEMANTINE HCL 10 MG TABLET PO SCH ×2 (09:51→21:29)
[2017-02-08] MEDS ORDERED: ACETAMINOPHEN 325 MG TABLET PO PRN (14:02)
--- NOTE | 2017-02-08 14:12 | PDOC PROGRESS REPORT ---
Subjective Progress Note for:: 02/08/17 Subjective:: This is a 81-year-old female with a significant history of dementia currently with the chcf status post fall and subdural hematoma was admitting in the hospital. Since CT of the head was done yesterday with changing the distribution of the blood but nothing increasing any sign and no midline shift Patient's according to the nursing staff doing fair no other changes Patient's per Dr. Velasquez currently DNR/DNI Physical Exam Vital Signs: Temp Pulse Resp BP Pulse Ox 97.5 F 53 L 20 149/82 H 96 02/08/17 00:00 02/08/17 07:00 02/08/17 00:00 02/08/17 00:00 02/07/17 16:49 Intake & Output 02/07/17 02/08/17 02/09/17 06:59 06:59 06:59 Intake Total 320 465 Output Total 550 375 Balance -230 90 Weight 50 kg 50.2 kg General appearance: PRESENT: no acute distress, well-developed, well-nourished Head exam: PRESENT: atraumatic, normocephalic Eye exam: PRESENT: conjunctiva pink, EOMI, PERRLA. ABSENT: scleral icterus Ear exam: PRESENT: normal external ear exam Mouth exam: PRESENT: moist, tongue midline Neck exam: PRESENT: full ROM. ABSENT: carotid bruit, JVD, lymphadenopathy, thyromegaly Respiratory exam: PRESENT: clear to auscultation sandra Cardiovascular exam: PRESENT: RRR. ABSENT: diastolic murmur, rubs, systolic murmur Pulses: PRESENT: normal dorsalis pedis pul, +2 pedal pulses bilateral Vascular exam: PRESENT: normal capillary refill GI/Abdominal exam: PRESENT: normal bowel sounds, soft. ABSENT: distended, guarding, mass, organolmegaly, rebound, tenderness Rectal exam: PRESENT: deferred Neurological exam: PRESENT: alert, awake. ABSENT: motor sensory deficit Psychiatric exam: PRESENT: appropriate affect, normal mood. ABSENT: homicidal ideation, suicidal ideation Skin exam: PRESENT: dry, intact, warm. ABSENT: cyanosis, rash Results Laboratory Results: 02/07/17 04:33 02/07/17 04:33 02/04/17 02/04/17 02/04/17 17:51 17:51 17:51 Creatine Kinase 161 H CK-MB (CK-2) 2.48 Troponin I < 0.012 NT-Pro-B Natriuret Pep 200 02/04/17 02/04/17 02/05/17 23:44 23:44 05:51 Creatine Kinase 152 H 134 CK-MB (CK-2) 2.18 Troponin I < 0.012 NT-Pro-B Natriuret Pep 02/05/17 05:51 Creatine Kinase CK-MB (CK-2) 1.79 Troponin I < 0.012 NT-Pro-B Natriuret Pep Impressions: Head CT 02/06/17 00:00 IMPRESSION: EVOLVING RIGHT SUBDURAL HEMATOMA. ALTHOUGH THE DISTRIBUTION IS CHANGE COMPARED TO THE PRIOR STUDY WITH MORE BLOOD PRODUCTS SEEN POSTERIORLY, OVERALL THICKNESS OF HEMATOMA HAS DECREASED SUGGESTING REDISTRIBUTION OF BLOOD PRODUCTS RATHER THAN NEW HEMORRHAGE. NO ADDITIONAL ACUTE OR SIGNIFICANT FINDINGS. EVIDENCE OF ACUTE STROKE: NO. Assessment & Plan - Diagnosis (1) Acute subdural hematoma Is this a current diagnosis for this admission?: Yes Plan: We will repeat the CT of the head continues to IV steroid and continues to keppra This with the daughter very extensively regarding the patient's current conditions with the poor prognosis Discussed with the patient about the CT scan report and possible complication of the subdural hematoma Patient still currently a DNR/DNI as confirmed with the daughter today (2) Fall Qualifiers: Encounter type: initial encounter Qualified Code(s): W19.XXXA - Unspecified fall, initial encounter Is this a current diagnosis for this admission?: Yes - Time Time Spent with patient: 15-24 minutes Medications reviewed and adjusted accordingly: Yes Anticipated discharge: SNF Within: Other - Inpatient Certification Medical Necessity: Need Close Monitoring Due to Risk of Patient Decompensation Post Hospital Care: D/C Lamp Tester And Inspector Documentation - Plan Summary Plan Summary: We will repeat the CT of the head and check the blood work continues to IV steroid
[2017-02-08] MEDS: INSULIN LISPRO 100 UNIT/ML 3 ML VIAL SUBCUT PRN (16:50)
--- NOTE | 2017-02-08 18:23 | RADIOLOGY REPORT (SQ) ---
EXAM DESCRIPTION: CT HEAD WITHOUT COMPLETED DATE/TIME: 02/08/2017 5:16 pm REASON FOR STUDY: subdural hematoma COMPARISON: 02/06/2017, 02/04/2017 TECHNIQUE: Axial images acquired through the brain without intravenous contrast. Images reviewed wi th bone, brain and subdural windows. Images stored on PACS. All CT scanners at this facility use dose modulation, iterative reconstruction, and/or weight based d osing when appropriate to reduce radiation dose to as low as reasonably achievable (ALARA). [facility]: Dose Right [facility]: CareDose [facility]: Dose Right [facility]: Teradose 4D [facility]: Smart [employer] RADIATION DOSE: Up-to-date CT equipment and radiation dose reduction techniques were employed. CTDIv ol: 21.6 mGy. DLP: 432 mGy-cm.mGy. LIMITATIONS: None. FINDINGS: VENTRICLES: Prominent. CEREBRUM: No masses. No hemorrhage. No midline shift. Areas of low density in the white matter mos t likely due to chronic micro-vascular ischemic change. No evidence for acute infarction. CEREBELLUM: No masses. No hemorrhage. No alteration of density. No evidence for acute infarction. EXTRAAXIAL SPACES: Right subdural hematoma stable from the 22 and slightly smaller than on the . ORBITS AND GLOBE: No intra- or extraconal masses. Normal contour of globe without masses. CALVARIUM: No fracture. PARANASAL SINUSES: No fluid or mucosal thickening. SOFT TISSUES: No mass or hematoma. OTHER: No other significant finding. IMPRESSION: The subdural hematoma on the right is stable to slightly smaller than the prior and roxie rly smaller than on the . No evidence for extension. Chronic atrophy microvascular ischemia. EVIDENCE OF ACUTE STROKE: NO. TECHNICAL DOCUMENTATION: JOB ID: [id number] Quality ID # [id number]: Final reports with documentation of one or more dose reduction techniques (e.g., Au tomated exposure control, adjustment of the mA and/or kV according to patient size, use of iterative reconstruction technique) 2010 [employer]- All Rights Reserved
[2017-02-08] MEDS: FOLIC ACID 1 MG TABLET PO SCH ×2 (21:29)
[2017-02-08] MEDS: QUETIAPINE FUMARATE 25 MG TABLET PO SCH ×2 (21:29)
[2017-02-09] MEDS: DEXAMETHASONE SOD PHOSPHATE INJ 4 MG/1 ML VIAL IV SCH ×4 (03:55→22:36)
[2017-02-09] MEDS: LEVOTHYROXINE SODIUM 0.05 MG TABLET PO SCH (06:23)
[2017-02-09 06:40] LABS: ABSOLUTE MONOCYTES (AUTO) 0.4 10^3/uL (0.1-1.4); ABSOLUTE NEUT (AUTO) 10.3 10^3/uL (1.7-8.2); BASOPHILS % (AUTO) 0.1 % (0-2); HEMATOCRIT 34.3 % (36.0-47.0); HEMOGLOBIN 10.9 g/dL (12.0-15.5); HGB HCT DIFFERENCE -1.6; LYMPHOCYTES % (AUTO) 8.9 % (13-45); MEAN CORPUSCULAR HEMOGLOBIN 25.8 pg (27.0-33.4); MEAN CORPUSCULAR HGB CONC 31.8 g/dL (32.0-36.0); MEAN CORPUSCULAR VOLUME 81 fl (80-97); MONOCYTES % (AUTO) 3.1 % (3-13); RED BLOOD COUNT 4.22 10^6/uL (3.72-5.28); RED CELL DISTRIBUTION WIDTH 15.6 % (11.5-14.0); SEGMENTED NEUTROPHILS % (AUTO) 87.9 % (42-78); WHITE BLOOD COUNT 11.8 10^3/uL (4.0-10.5)
[2017-02-09 07:00] LABS: ANION GAP 13 (5-19); BLOOD UREA NITROGEN 30 mg/dL (7-20); CALCIUM 9.1 mg/dL (8.4-10.2); CARBON DIOXIDE 25 mmol/L (22-30); CHLORIDE 98 mmol/L (98-107); CREATININE RESULT 0.77 mg/dL (0.52-1.25); GLUCOSE 148 mg/dL (75-110); POTASSIUM 4.2 mmol/L (3.6-5.0); SODIUM 135.6 mmol/L (137-145)
[2017-02-09] MEDS: MEMANTINE HCL 10 MG TABLET PO SCH ×2 (10:04→22:37)
[2017-02-09] MEDS: LEVETIRACETAM 500 MG TABLET PO SCH ×2 (10:05→22:37)
[2017-02-09] MEDS: METFORMIN HCL 500 MG TABLET PO SCH ×2 (10:05→22:37)
--- NOTE | 2017-02-09 20:22 | PDOC TRANSFER SUMMARY ---
General - Admit/Disc Date/PCP Admission Date/Primary Care Provider: 02/04/17 17:23 FRANCISCO RUANO MD Discharge Date: 02/09/17 - Discharge Diagnosis (1) Acute subdural hematoma Is this a current diagnosis for this admission?: Yes (2) Subdural hematoma, post-traumatic Is this a current diagnosis for this admission?: Yes (3) Fall Is this a current diagnosis for this admission?: Yes (4) Type 2 diabetes mellitus Is this a current diagnosis for this admission?: Yes (5) Alzheimer disease Is this a current diagnosis for this admission?: Yes - Additional Information Resuscitation Status: Do Not Resuscitate Discharge Diet: Diabetic Discharge Activity: Activity As Tolerated Home Medications: Donepezil HCl [Aricept] 10 mg PO QHS 12/14/14 Folic Acid [Folvite 1 mg Tablet] 1 mg PO DAILY 12/14/14 Insulin Aspart [Novolog Insulin (Aspart) 100 unit/mL] 0 unit SUBCUT .SLD SCALE 12/14/14 Levothyroxine Sodium [Synthroid 0.05 mg Tablet] 50 mcg PO MOWEFR@0600 12/14/14 Memantine HCl [Namenda 10 mg Tablet] 10 mg PO Q12 12/14/14 Metformin HCl [Glucophage 500 mg Tablet] 500 mg PO Q12 12/14/14 Sennosides/Docusate Sodium [Senna-S Tablet] 1 each PO Q12 12/14/14 Levothyroxine Sodium [Synthroid] 62.5 mcg PO SUTUTHSA@0600 02/04/17 Acetaminophen [Tylenol 325 mg Tablet] 650 mg PO Q6HP PRN tablet 02/09/17 Dexamethasone [Decadron 4 Mg Tablet] 4 mg PO BID #60 tablet 02/09/17 Levetiracetam [Keppra 500 mg Tablet] 500 mg PO Q12 tablet 02/09/17 Losartan Potassium 100 mg PO DAILY #30 tablet 02/09/17 History of Present Illness Admission Date/PCP: 02/04/17 17:23 FRANCISCO RUANO MD History of Present Illness: ZACK PAZ is a 81 year old female, she has advanced dementia resident of the retirement at [place], a fall risk, she was found on the floor in the retirement, she apparently fell on the face she was referred to the emergency room for evaluation. In the emergency room CT head was done it showed a right frontal temporal acute subdural hemorrhage measuring 11 mm in thickness with right frontal scalp hematoma there was no skull fracture. Patient is severely demented, a DNR status could not communicate intelligently with this patient she is expressing incompressible words. I spoke to the patient's daughter about her mother's condition, she would manage conservatively with intravenous Decadron she is not particularly a candidate for intracranial surgery overall prognosis is guarded to poor.. Hospital Course Hospital Course: Patient was admitted for the management of subdural hemorrhage, she fell and sustained subdural hemorrhage. She was managed conservatively with intravenous Decadron 4 mg IV every [address] scan of the head showed improvement and reduction of the hemorrhage. She was also manage with Keppra for seizure prophylaxis, she has a history of Alzheimer dementia and also type 2 diabetes mellitus. Physical Exam Vital Signs: Temp Pulse Resp BP Pulse Ox 97.3 F 58 L 12 163/75 H 100 02/09/17 16:18 02/09/17 16:18 02/09/17 16:18 02/09/17 16:18 02/09/17 16:18 Intake & Output 02/08/17 02/09/17 02/10/17 06:59 06:59 06:59 Intake Total 465 335 Output Total 375 300 Balance 90 35 Weight 50.2 kg 50.2 kg General appearance: PRESENT: no acute distress, well-developed, well-nourished Head exam: PRESENT: atraumatic, normocephalic Eye exam: PRESENT: conjunctiva pink, EOMI, PERRLA Respiratory exam: PRESENT: clear to auscultation sandra Cardiovascular exam: PRESENT: RRR, +S1, +S2 Vascular exam: PRESENT: normal capillary refill GI/Abdominal exam: PRESENT: normal bowel sounds, soft Rectal exam: PRESENT: deferred Extremities exam: PRESENT: full ROM Neurological exam: PRESENT: alert, CN II-XII grossly intact Results Laboratory Results: 02/09/17 06:00 02/09/17 06:00 02/09/17 02/09/17 06:00 06:00 WBC 11.8 H RBC 4.22 Hgb 10.9 L Hct 34.3 L MCV 81 MCH 25.8 L MCHC 31.8 L RDW 15.6 H Plt Count 275 Seg Neutrophils % 87.9 H Lymphocytes % 8.9 L Monocytes % 3.1 Eosinophils % 0.0 Basophils % 0.1 Absolute Neutrophils 10.3 H Absolute Lymphocytes 1.0 Absolute Monocytes 0.4 Absolute Eosinophils 0.0 Absolute Basophils 0.0 Sodium 135.6 L Potassium 4.2 Chloride 98 Carbon Dioxide 25 Anion Gap 13 BUN 30 H Creatinine 0.77 Est GFR ( Amer) > 60 Est GFR (Non-Af Amer) > 60 Glucose 148 H Calcium 9.1 02/04/17 02/04/17 02/04/17 17:51 17:51 17:51 Creatine Kinase 161 H CK-MB (CK-2) 2.48 Troponin I < 0.012 NT-Pro-B Natriuret Pep 200 02/04/17 02/04/17 02/05/17 23:44 23:44 05:51 Creatine Kinase 152 H 134 CK-MB (CK-2) 2.18 Troponin I < 0.012 NT-Pro-B Natriuret Pep 02/05/17 05:51 Creatine Kinase CK-MB (CK-2) 1.79 Troponin I < 0.012 NT-Pro-B Natriuret Pep Impressions: Head CT 02/08/17 00:00 IMPRESSION: The subdural hematoma on the right is stable to slightly smaller than the prior and clearly smaller than on the . No evidence for extension. Chronic atrophy microvascular ischemia. EVIDENCE OF ACUTE STROKE: NO.
[2017-02-09] MEDS: DONEPEZIL HCL 5 MG TABLET PO SCH (22:37)
[2017-02-09] MEDS: AMLODIPINE BESYLATE 5 MG TABLET PO SCH (22:37)
[2017-02-09] MEDS: QUETIAPINE FUMARATE 25 MG TABLET PO SCH (22:37)
[2017-02-09] MEDS: FOLIC ACID 1 MG TABLET PO SCH (22:37)
[2017-02-10] MEDS: DEXAMETHASONE SOD PHOSPHATE INJ 4 MG/1 ML VIAL IV SCH ×2 (03:40→09:49)
[2017-02-10] MEDS ORDERED: LEVOTHYROXINE SODIUM 0.025 MG TABLET PO SCH (06:00)
[2017-02-10 08:41] VITALS: BP 144/71
[2017-02-10] MEDS: MEMANTINE HCL 10 MG TABLET PO SCH (09:49)
[2017-02-10] MEDS: METFORMIN HCL 500 MG TABLET PO SCH (09:49)
[2017-02-10] MEDS: LEVETIRACETAM 500 MG TABLET PO SCH (09:49)
[2017-02-10 11:02] LABS: ANION GAP 10 (5-19); BLOOD UREA NITROGEN 29 mg/dL (7-20); CALCIUM 9.1 mg/dL (8.4-10.2); CARBON DIOXIDE 30 mmol/L (22-30); CHLORIDE 98 mmol/L (98-107); CREATININE RESULT 0.73 mg/dL (0.52-1.25); GLUCOSE 204 mg/dL (75-110); POTASSIUM 4.4 mmol/L (3.6-5.0)
== END 2017-02-10 12:00 | DRG 84 ==
LOC: ER 10:28 → EH 12:10 → UNDOADMIN 12:10 → EH 16:30 → 4S 16:30
PROVIDERS: ADMIT Internal Medicine; ATTEND Internal Medicine
DX: S06.5X9A Traumatic subdural hemorrhage with loss of consciousness of unspecified duration, initial encounter (principal); W19.XXXS Unspecified fall, sequela; E11.9 Type 2 diabetes mellitus without complications; E78.5 Hyperlipidemia, unspecified; I10 Essential (primary) hypertension; D64.9 Anemia, unspecified; G30.9 Alzheimer's disease, unspecified; F02.80 Dementia in other diseases classified elsewhere, unspecified severity, without behavioral disturbance, psychotic disturbance, mood disturbance, and anxiety; Z66 Do not resuscitate; Z79.84 Long term (current) use of oral hypoglycemic drugs; Z79.4 Long term (current) use of insulin; Z79.899 Other long term (current) drug therapy; Z90.710 Acquired absence of both cervix and uterus
CPT/HCPCS: 36415; 70450; 80048; 80053; 80076; 80307; 81001; 82150; 82550; 82553; 82962; 83036; 83690; 83735; 83880; 84100; 84439; 84443; 84484; 85025; 85610; 85730; 87040; 87086; 99285; J1100; J1815; J3490

== ENCOUNTER → 2017-03-06 | Outpatient (CLI) | payer MEDICARE, BC, MEDICAID ==
--- NOTE | 2017-03-06 14:14 | RADIOLOGY REPORT (SQ) ---
EXAM DESCRIPTION: CT HEAD WITHOUT COMPLETED DATE/TIME: 03/06/2017 1:58 pm REASON FOR STUDY: UNSPEC INTRACRANIAL INJURY W/O LOSS OF CONSCIOUSNESS (S06.9X0D) S06.9X0D UNSP INT RACRANIAL INJURY W/O LOSS OF CONSCIOUSNESS, COMPARISON: 02/08/2017 TECHNIQUE: Axial images acquired through the brain without intravenous contrast. Images reviewed wi th bone, brain and subdural windows. Images stored on PACS. All CT scanners at this facility use dose modulation, iterative reconstruction, and/or weight based d osing when appropriate to reduce radiation dose to as low as reasonably achievable (ALARA). [facility]: Dose Right [facility]: CareDose [facility]: Dose Right [facility]: Teradose 4D [facility]: [employer] RADIATION DOSE: Up-to-date CT equipment and radiation dose reduction techniques were employed. CTDIv ol: 48.4 mGy. DLP: 1762 mGy-cm. mGy. LIMITATIONS: None. FINDINGS: VENTRICLES: Prominent ventricles secondary to involutional atrophy. CEREBRUM: No masses. No hemorrhage. No midline shift. No evidence for acute infarction. Few scatte red areas of low density in the white matter most likely chronic small vessel ischemic changes. Tony ical atrophy. CEREBELLUM: No masses. No hemorrhage. No alteration of density. No evidence for acute infarction. EXTRAAXIAL SPACES: There is shallow residual right subdural hematoma. This is seen in the right post erior parietal/ occipital area. This is hyperdense. ORBITS AND GLOBE: No intra- or extraconal masses. Normal contour of globe without masses. CALVARIUM: No fracture. PARANASAL SINUSES: No fluid or mucosal thickening. SOFT TISSUES: No mass or hematoma. OTHER: No other significant finding. IMPRESSION: 1. Involutional changes of aging with mild chronic microvascular ischemia. 2. Small right posterior subdural hematoma. This continues to be slightly hyperdense. There could be an acute component to it. It is possible that there could be calcifications creating this appeara nce. EVIDENCE OF ACUTE STROKE: NO. COMMENT: Quality ID # [id number]: Final reports with documentation of one or more dose reduction techniques (e.g., Automated exposure control, adjustment of the mA and/or kV according to patient size, use of iterative reconstruction technique) TECHNICAL DOCUMENTATION: JOB ID: [id number]- All Rights Reserved
== END ==
LOC: RAD 13:28
PROVIDERS: ATTEND Internal Medicine
DX: S06.9X0D Unspecified intracranial injury without loss of consciousness, subsequent encounter (principal); X58.XXXD Exposure to other specified factors, subsequent encounter
CPT/HCPCS: 70450

== ENCOUNTER 2017-04-09 03:54 | Inpatient (IN) | payer MEDICARE, BC, MEDICAID ==
--- NOTE | 2017-04-09 04:09 | ER Document Report ---
ED GI/ - General Chief Complaint: Nausea/Vomiting Stated Complaint: DIFFICULTY BREATHING Time Seen by Provider: 04/09/17 03:59 Notes: The patient is an 81-year-old female, past medical history severe dementia, presents from [facility] by EMS after she was found to have increased work of breathing and a fever. She has had nausea and vomiting over the past day. She received 650 mg Tylenol and 4 mg Zofran at 2:45. Patient is sleepy and unable to provide any additional history. TRAVEL OUTSIDE OF THE [place] IN LAST 30 DAYS: No - Related Data Allergies/Adverse Reactions: No Known Allergies Allergy (Verified 02/04/17 10:40) Home Medications: Current Home Medications Acetaminophen [Tylenol 325 mg Tablet] 650 mg PO Q6HP PRN 04/09/17 [History] Levetiracetam [Keppra 500 mg Tablet] 500 mg PO Q12 04/09/17 [History] Levothyroxine Sodium [Synthroid 0.088 mg Tablet] 0.088 mg PO DAILY 04/09/17 [ History] Past Medical History - General Information source: Transfer Record, Emergency Med Personnel Cannot obtain history due to: Dementia - Social History Smoking Status: Unknown if Ever Smoked Family History: Reviewed & Not Pertinent - Past Medical History Cardiac Medical History: Reports: Hx Hypercholesterolemia, Hx Hypertension Denies: Hx Coronary Artery Disease, Hx Heart Attack Pulmonary Medical History: Reports: Hx Pneumonia Denies: Hx Asthma, Hx Bronchitis, Hx COPD Neurological Medical History: Denies: Hx Cerebrovascular Accident, Hx Seizures Endocrine Medical History: Reports: Hx Diabetes Mellitus Type 2 Musculoskeltal Medical History: Reports Hx Arthritis Psychiatric Medical History: Reports: Hx Dementia Past Surgical History: Reports: Hx Hysterectomy - Immunizations Hx Diphtheria, Pertussis, Tetanus Vaccination: Yes Hx Pneumococcal Vaccination: 10/16/13 Review of Systems - Review of Systems -: Yes ROS unobtainable due to patient's medical condition Physical Exam - Vital signs Vitals: Resp Pulse Ox 20 94 04/09/17 04:00 04/09/17 04:00 - Notes Notes: PHYSICAL EXAMINATION: GENERAL: No acute distress. HEAD: Atraumatic, normocephalic. EYES: Pupils equal round and reactive to light, extraocular movements intact, sclera anicteric, conjunctiva are normal. ENT: nares patent, oropharynx clear without exudates. Moist mucous membranes. NECK: Normal range of motion, supple without lymphadenopathy LUNGS: No respiratory distress. Crackles in bilateral lower lobes. HEART: Regular rate and rhythm without murmurs ABDOMEN: Distended, patient winces when palpated, normoactive bowel sounds. No guarding, no rebound. No masses appreciated. EXTREMITIES: Normal range of motion, no pitting or edema. No cyanosis. NEUROLOGICAL: Sleepy, will open eyes to voice. Moving all 4 extremities. SKIN: Warm, Dry, normal turgor, no rashes or lesions noted. Course - Re-evaluation Re-evalutation: Patient is in no respiratory distress. She is satting 98% on RA. Patient has evidence of left lower lobe infiltrate. With recent nausea and vomiting, concern for aspiration pneumonia. At the retirement, she had a fever. She has a leukocytosis and her lactate is 5.2. 30 mL/kg were provided and broad- spectrum antibiotics were started to cover for HCAP and aspiration pneumonia. CT A/P obtained showing large amount of stool in sigmoid colon and small- moderate B/L pneumonia. 04/09/17 05:[address] Henderson (covering for Dr. Chowdhury) and will admit patient to [facility] as Inpatient for further evaluation and treatment. - Vital Signs Vital signs: Temp Pulse Resp BP Pulse Ox 97.5 F 84 20 148/72 H 100 04/11/17 03:40 04/11/17 03:40 04/11/17 03:40 04/11/17 03:40 04/11/17 03:40 - Laboratory Result Diagrams: 04/11/17 04:48 04/11/17 04:48 Laboratory results interpreted by me: 04/09/17 04/09/17 04/09/17 04:10 04:10 04:45 WBC 19.1 H Hgb 11.9 L MCH 26.9 L MCHC 31.4 L RDW 19.7 H Plt Count 518 H Seg Neuts % (Manual) 83 H Band Neutrophils % 6 H Lymphocytes % (Manual) 8 L Abs Neuts (Manual) 17.0 H BUN Glucose Lactic Acid 5.2 H Calcium Total Protein Albumin Lipase Urine Protein 30 H Urine Ketones TRACE H Urine Urobilinogen 2.0 H Urine Ascorbic Acid 40 H 04/09/17 05:00 WBC Hgb MCH MCHC RDW Plt Count Seg Neuts % (Manual) Band Neutrophils % Lymphocytes % (Manual) Abs Neuts (Manual) BUN 24 H Glucose 227 H Lactic Acid Calcium 8.1 L Total Protein 5.0 L Albumin 2.6 L Lipase 19.1 L Urine Protein Urine Ketones Urine Urobilinogen Urine Ascorbic Acid - Diagnostic Test Radiology reviewed: Image reviewed, Reports reviewed Radiology results interpreted by me: CXR: Small left lower hemithoracic pneumonia/atelectasis. Surveillance radiographs recommended within 7-12 weeks. KUB: Moderate sigmoid stool retention with moderate nonspecific gaseous dilation of large bowel. CT A/P: 1. Small-moderate bilateral lower lobar pneumonia/fibrosis. 2. Moderate rectal stool retention. - EKG Interpretation by Me EKG shows normal: Sinus rhythm, [place], Intervals, QRS Complexes, ST-T Waves Rate: Normal [place]/QRS: Left axis deviation When compared to previous EKG there are: No significant change Discharge - Discharge Clinical Impression: Severe sepsis Pneumonia Qualifiers: Pneumonia type: due to unspecified organism Laterality: bilateral Lung location : lower lobe of lung Qualified Code(s): J18.9 - Pneumonia, unspecified organism Condition: Stable Disposition: ADMITTED INPATIENT Admitting Provider: Henderson Unit Admitted: [facility]
[2017-04-09 04:35] LABS: HEMATOCRIT 37.9 % (36.0-47.0); HEMOGLOBIN 11.9 g/dL (12.0-15.5); HGB HCT DIFFERENCE -2.2; MEAN CORPUSCULAR HEMOGLOBIN 26.9 pg (27.0-33.4); MEAN CORPUSCULAR HGB CONC 31.4 g/dL (32.0-36.0); MEAN CORPUSCULAR VOLUME 86 fl (80-97); RED BLOOD COUNT 4.42 10^6/uL (3.72-5.28); RED CELL DISTRIBUTION WIDTH 19.7 % (11.5-14.0); WHITE BLOOD COUNT 19.1 10^3/uL (4.0-10.5)
[2017-04-09] MEDS ORDERED: PIPERACILLIN/TAZOBACTAM 3.375 GM VIAL IV ONE (04:46)
[2017-04-09] MEDS ORDERED: VANCOMYCIN HCL INJ 1000 MG VIAL IV ONE (04:46)
[2017-04-09] MEDS ORDERED: CLINDAMYCIN 600 MG/D5W RTU 600 MG/50 ML RTUPB IV ONE (04:47)
[2017-04-09] MEDS ORDERED: NORMAL SALINE 1000 ML 1,000 ML IV ONE ×2 (04:47→04:57)
[2017-04-09 04:49] LABS: VENOUS BLOOD HCO3 29.1 mmol/L (20-32); VENOUS BLOOD PCO2 51.1 mmHg (35-63); VENOUS BLOOD PH 7.37 (7.30-7.42)
--- NOTE | 2017-04-09 04:55 | RADIOLOGY REPORT (SQ) ---
EXAM DESCRIPTION: CHEST SINGLE VIEW COMPLETED DATE/TIME: 04/09/2017 4:36 am REASON FOR STUDY: SOB COMPARISON: 07/17/2015. EXAM PARAMETERS: NUMBER OF VIEWS: One view. TECHNIQUE: Single frontal radiographic view of the chest acquired. RADIATION DOSE: NA LIMITATIONS: None. FINDINGS: LUNGS AND PLEURA: Small streakiness of the left mid lung field and left lung base increase d -new compared with prior exam from 07/17/2015. MEDIASTINUM AND HILAR STRUCTURES: No masses. Contour normal. HEART AND VASCULAR STRUCTURES: Normal cardiac silhouette size. Atherosclerosis. BONES: No acute findings. HARDWARE: Right upper hemithoracic clips. OTHER: No other significant finding. IMPRESSION: Small left lower hemithoracic pneumonia/atelectasis. Surveillance radiographs recommend ed within 7-12 weeks. TECHNICAL DOCUMENTATION: JOB ID: [id number] [employer]- All Rights Reserved
[2017-04-09 04:56] LABS: BAND NEUTROPHILS % (MANUAL) 6 % (3-5); BASOPHILS % (MANUAL) 0 % (0-2); EOSINOPHILS % (MANUAL) 0 % (0-6); LYMPHOCYTES % (MANUAL) 8 % (13-45); TOTAL CELLS COUNTED 100
[2017-04-09 04:58] LABS: ACANTHOCYTES SLIGHT; ANISOCYTOSIS 2+; HYPOCHROMASIA 1+; OVALOCYTES 1+; POIKILOCYTOSIS 1+; TOXIC VACUOLATION PRESENT
--- NOTE | 2017-04-09 04:58 | RADIOLOGY REPORT (SQ) ---
EXAM DESCRIPTION: KUB/ABDOMEN (SINGLE VIEW) COMPLETED DATE/TIME: 04/09/2017 4:36 am REASON FOR STUDY: tense abdomen, N/V COMPARISON: None. NUMBER OF VIEWS: One view. TECHNIQUE: Supine radiographic image of the abdomen acquired. LIMITATIONS: None. FINDINGS: BOWEL GAS PATTERN: Moderate gaseous dilation of large colon includes a 7.2 cm diameter loo p in the left lower abdominal quadrant and cecal dilation up to 11 cm. Moderate sigmoid stool retent ion. No significant small bowel involvement discerned. CALCIFICATIONS: No suspicious calcifications. SOFT TISSUES: No gross mass or suggestion of organomegaly. HARDWARE: None in the abdomen. BONES: No acute fracture. No worrisome bone lesions. OTHER: No other significant finding. IMPRESSION: Moderate sigmoid stool retention with moderate nonspecific gaseous dilation of large bow el. TECHNICAL DOCUMENTATION: JOB ID: [id number] [employer]- All Rights Reserved
[2017-04-09] MEDS ORDERED: GLYCERIN (ADULT) SUPP.RECT PR ONE (05:30)
[2017-04-09 05:38] LABS: ALANINE AMINOTRANSFERASE 34 U/L (9-52); ALBUMIN 2.6 g/dL (3.5-5.0); ALKALINE PHOSPHATASE 76 U/L (38-126); ANION GAP 15 (5-19); ASPARTATE AMINO TRANSFERASE 21 U/L (14-36); BILIRUBIN,DIRECT 0.3 mg/dL (0.0-0.4); BILIRUBIN,TOTAL 0.4 mg/dL (0.2-1.3); BLOOD UREA NITROGEN 24 mg/dL (7-20); CALCIUM 8.1 mg/dL (8.4-10.2); CARBON DIOXIDE 23 mmol/L (22-30); CHLORIDE 106 mmol/L (98-107); CREATININE RESULT 0.71 mg/dL (0.52-1.25); GLUCOSE 227 mg/dL (75-110); LIPASE 19.1 U/L (23-300); POTASSIUM 3.7 mmol/L (3.6-5.0); SODIUM 144.1 mmol/L (137-145)
--- NOTE | 2017-04-09 06:13 | RADIOLOGY REPORT (SQ) ---
EXAM DESCRIPTION: CT ABD/PELVIS WITH IV ONLY COMPLETED DATE/TIME: 04/09/2017 5:27 am REASON FOR STUDY: tense abdomen, nausea and vomiting COMPARISON: None. TECHNIQUE: CT scan of the abdomen and pelvis performed using helical scanning technique with dynamic intravenous contrast injection. No oral contrast. Images reviewed with lung, soft tissue, and bone windows. Reconstructed coronal and sagittal MPR images reviewed. Delayed images for evaluation of the urinary system also acquired. All images stored on PACS. All CT scanners at this facility use dose modulation, iterative reconstruction, and/or weight based d osing when appropriate to reduce radiation dose to as low as reasonably achievable (ALARA). [facility]: Dose Right [facility]: CareDose [facility]: Dose Right [facility]: Teradose 4D [facility]: [employer] CONTRAST TYPE AND DOSE: contrast/concentration: Isovue 370.00 mg/ml; Total Contrast Delivered: 54.0 ml; Total Saline Delivered: 65.0 ml RENAL FUNCTION: Not available ; approved by clinician due to medical indication. RADIATION DOSE: CT Rad equipment meets quality standard of care and radiation dose reduction techniq ues were employed. CTDIvol: 5.2 mGy. DLP: 492 mGy-cm.. LIMITATIONS: None. FINDINGS: LOWER CHEST: Small is streakiness and airspace opacity of bilateral lower lobes, left more than right. Moderate coronary arterial stenting- calcification. LIVER: Normal size. No masses. No dilated ducts. SPLEEN: Normal size. No focal lesions. PANCREAS: No masses. No significant calcifications. No adjacent inflammation or peripancreatic fluid collections. Pancreatic duct not dilated. GALLBLADDER: No identified stones by CT criteria. No inflammatory changes to suggest cholecystitis. ADRENAL GLANDS: No significant masses or asymmetry. RIGHT KIDNEY AND URETER: No solid masses. No significant calcifications. No hydronephrosis or hyd roureter. LEFT KIDNEY AND URETER: No solid masses. No significant calcifications. No hydronephrosis or hydr oureter. AORTA AND VESSELS: No aneurysm. No dissection. Renal arteries, SMA, celiac without stenosis. Atheros clerosis. RETROPERITONEUM: No retroperitoneal adenopathy, hemorrhage or masses. BOWEL AND PERITONEAL CAVITY: No masses or inflammatory changes. No free fluid or peritoneal masses. Moderate sigmoid-rectal stool retention. Moderate gaseous colonic distention measures up to 4.5 cm i n diameter. APPENDIX: No acute findings. PELVIS: No mass. No free fluid. Normal bladder. ABDOMINAL WALL: No masses. No hernias. BONES: 0.3 cm L3 anterolisthesis. Small to moderate desiccated disc bulge between the L2 and S1 leve ls. Mild mid lower lumbar spondylosis. OTHER: No other significant finding. IMPRESSION: 1. Small-moderate bilateral lower lobar pneumonia/fibrosis. 2. Moderate rectal stool retention. TECHNICAL DOCUMENTATION: JOB ID: [id number] Quality ID # [id number]: Final reports with documentation of one or more dose reduction techniques (e.g., Au tomated exposure control, adjustment of the mA and/or kV according to patient size, use of iterative reconstruction technique) 2010 [employer]- All Rights Reserved
[2017-04-09] MEDS ORDERED: ACETAMINOPHEN 325 MG TABLET PO PRN ×2 (06:48→08:26)
[2017-04-09] MEDS ORDERED: GUAIFENESIN SYRP 200 MG/10 ML UDC PO PRN (06:48)
[2017-04-09 07:03] LABS: AMORPHOUS SEDIMENT,URINE TRACE /HPF; APPEARANCE,URINE CLOUDY; BILIRUBIN,URINE NEGATIVE (NEGATIVE); GLUCOSE, URINE NEGATIVE (NEGATIVE); KETONES,URINE TRACE mg/dL (NEGATIVE); LEUKOCYTE ESTERASE,URINE NEGATIVE (NEGATIVE); NITRITE,URINE NEGATIVE (NEGATIVE); PROTEIN,URINE 30 mg/dL (NEGATIVE); URINE SPECIFIC GRAVITY 1.025
[2017-04-09] MEDS: NORMAL SALINE 1000 ML 1,000 ML IV PRN (08:14)
[2017-04-09] MEDS ORDERED: DEXTROSE 50%-WATER 25 GM/50 ML DISP.SYRIN IV PRN ×2 (08:27)
[2017-04-09] MEDS ORDERED: GLUCAGON,HUMAN RECOMB 1 MG INJ IM PRN (08:27)
[2017-04-09] MEDS ORDERED: DEXTROSE 40% GEL 15 GM TUBE PO PRN ×2 (08:27)
[2017-04-09] MEDS: IPRATROPIUM/ALBUTEROL 0.5-2.5 MG/3 ML AMPUL NEB SCH ×3 (08:51→20:07)
--- NOTE | 2017-04-09 09:09 | PDOC H&P ---
History of Present Illness Admission Date/PCP: 04/09/17 06:03 FRANCISCO RUANO MD Patient complains of: Shortness of the breath History of Present Illness: ZACK PAZ is a 81 year old female This 81-year-old female with a significant history of the severe dementia with a history of the subdural hematoma and multiple other comorbidity came [facility] the [facility] with the complaint of shortness of the breath and hypoxia and the patient's also having nausea and vomiting since last 1 days In the emergency department workup patient have a CT abdomen pelvis was done due to the distention of the abdomen which is negative for any acute finding except the retained stools Patient also have a pneumonia and a chest x-ray and a CT abdomen and pelvis Patient O2 sat was 94 persons while patient was in the ER Patient was given to the IV antibiotic and ER physicians call me to admit the patient's for the pneumonia I saw the patient on the floor patient is alert awake but underlying severe dementia's Patients have a bowel movement and passing the gas Otherwise unable to get any history from the patient Past Medical History Cardiac Medical History: Reports: Hyperlipidema, Hypertension Denies: Coronary Artery Disease, Myocardial Infarction Pulmonary Medical History: Reports: Pneumonia Denies: Asthma, Bronchitis, Chronic Obstructive Pulmonary Disease (COPD) Neurological Medical History: Denies: Seizures Neurological History Note: History of the subdural hematoma Endocrine Medical History: Reports: Diabetes Mellitus Type 2 Musculoskeltal Medical History: Reports: Arthritis Psychiatric Medical History: Reports: Dementia Hematology: Reports: Anemia Past Surgical History Past Surgical History: Reports: Hysterectomy Social History Smoking Status: Unknown if Ever Smoked Frequency of Alcohol Use: None Hx Recreational Drug Use: No Family History Family History: Reviewed & Not Pertinent Parental Family History Reviewed: Yes Children Family History Reviewed: Yes Sibling(s) Family History Reviewed.: Yes Medication/Allergy Home Medications: Donepezil HCl [Aricept] 10 mg PO QHS 12/14/14 Folic Acid [Folvite 1 mg Tablet] 1 mg PO DAILY 12/14/14 Insulin Aspart [Novolog Insulin (Aspart) 100 unit/mL] 0 unit SUBCUT .SLD SCALE 12/14/14 Levothyroxine Sodium [Synthroid 0.05 mg Tablet] 50 mcg PO MOWEFR@0600 12/14/14 Memantine HCl [Namenda 10 mg Tablet] 10 mg PO Q12 12/14/14 Metformin HCl [Glucophage 500 mg Tablet] 500 mg PO Q12 12/14/14 Sennosides/Docusate Sodium [Senna-S Tablet] 1 each PO Q12 12/14/14 Levothyroxine Sodium [Synthroid] 62.5 mcg PO SUTUTHSA@0600 02/04/17 Acetaminophen [Tylenol 325 mg Tablet] 650 mg PO Q6HP PRN tablet 02/09/17 Dexamethasone [Decadron 4 Mg Tablet] 4 mg PO BID #60 tablet 02/09/17 Losartan Potassium 100 mg PO DAILY #30 tablet 02/09/17 Allergies/Adverse Reactions: No Known Allergies Allergy (Verified 02/04/17 10:40) Review of Systems ROS unobtainable: Due to mental status Physical Exam Vital Signs: Temp Pulse Resp BP Pulse Ox 99.6 F 89 16 140/69 H 100 04/09/17 04:36 04/09/17 06:48 04/09/17 06:48 04/09/17 06:48 04/09/17 06:48 General appearance: PRESENT: no acute distress Eye exam: PRESENT: PERRLA Neck exam: ABSENT: carotid bruit, full ROM, JVD, lymphadenopathy, meningismus, tenderness, thyromegaly, tracheal deviation, tracheostomy, other Respiratory exam: PRESENT: clear to auscultation sandra Cardiovascular exam: PRESENT: +S1, +S2 GI/Abdominal exam: PRESENT: distended, normal bowel sounds, soft Extremities exam: ABSENT: pedal edema Neurological exam: PRESENT: alert, awake Additional comments: Underlying significant dementia Psychiatric exam: PRESENT: anxious Skin exam: PRESENT: dry Results Impressions: Abdomen/Pelvis CT 04/09/17 04:00 IMPRESSION: 1. Small-moderate bilateral lower lobar pneumonia/fibrosis. 2. Moderate rectal stool retention. Chest X-Ray 04/09/17 04:00 IMPRESSION: Small left lower hemithoracic pneumonia/atelectasis. Surveillance radiographs recommended within 7-12 weeks. KUB X-Ray 04/09/17 04:00 IMPRESSION: Moderate sigmoid stool retention with moderate nonspecific gaseous dilation of large bowel. Assessment & Plan - Diagnosis (1) Pneumonia Qualifiers: Pneumonia type: due to unspecified organism Laterality: left Lung location: lower lobe of lung Qualified Code(s): J18.1 - Lobar pneumonia, unspecified organism Is this a current diagnosis for this admission?: Yes Plan: Will cover the gram-positive gram-negative and anaerobic organisms Start the patient on the cefepime and clindamycin's and patient already received 1 dose of vancomycin's we will get the sputum cultures blood culture and urine cultures (2) Severe sepsis Is this a current diagnosis for this admission?: Yes Plan: Covered as above antibiotic wait for the culture and sensitivity (3) Alzheimer disease Qualifiers: Dementia behavioral disturbance: with behavioral disturbance Is this a current diagnosis for this admission?: Yes Plan: Continues to current medications (4) Subdural hematoma Is this a current diagnosis for this admission?: Yes Plan: History of the subdural hematoma will repeat the CT scan of the head (5) Type 2 diabetes mellitus Qualifiers: Diabetes mellitus complication status: with unspecified complications Is this a current diagnosis for this admission?: Yes Plan: Continues to current medications (6) Constipation Qualifiers: Constipation type: unspecified constipation type Qualified Code(s): K59.00 - Constipation, unspecified Is this a current diagnosis for this admission?: Yes Plan: Patient already passing the gas and some stool will give her some Dulcolax suppository and Colace and MiraLAX powder daily - Time Time Spent: 30 to 50 Minutes Medications reviewed and adjusted accordingly: Yes Anticipated discharge: SNF Within: Other - Inpatient Certification Medical Necessity: Need Close Monitoring Due to Risk of Patient Decompensation 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
[2017-04-09] MEDS ORDERED: (PENDING PHARMACY ID) (Losartan Potassium [Losartan Potassium] 100 MG) PO SCH (10:00)
[2017-04-09] MEDS: FAMOTIDINE INJ/PF 20 MG/2 ML SDV IV SCH ×2 (10:32→22:38)
[2017-04-09] MEDS: GUAIFENESIN 600 MG TABLET.SA PO SCH ×2 (10:32→22:38)
[2017-04-09] MEDS ORDERED: BISACODYL 10 MG SUPP.RECT PR ONE (11:00)
[2017-04-09] MEDS: LOSARTAN POTASSIUM 50 MG TABLET PO SCH (11:39)
[2017-04-09] MEDS: POLYETHYLENE GLYCOL 3350 POWDER 17 GM/1 PACKET PO SCH (11:39)
[2017-04-09] MEDS: CEFEPIME 2 GM/D5W RTU 2 GM/50 ML RTUPB IV SCH ×2 (11:41→23:54)
[2017-04-09] MEDS: FOLIC ACID 1 MG TABLET PO SCH (11:41)
--- NOTE | 2017-04-09 11:47 | RADIOLOGY REPORT (SQ) ---
EXAM DESCRIPTION: CT HEAD WITHOUT COMPLETED DATE/TIME: 04/09/2017 11:03 am REASON FOR STUDY: ams COMPARISON: 03/06/2017 TECHNIQUE: Axial images acquired through the brain without intravenous contrast. Images reviewed wi th bone, brain and subdural windows. Images stored on PACS. All CT scanners at this facility use dose modulation, iterative reconstruction, and/or weight based d osing when appropriate to reduce radiation dose to as low as reasonably achievable (ALARA). [facility]: Dose Right [facility]: CareDose [facility]: Dose Right [facility]: Teradose 4D [facility]: Smart Technologies RADIATION DOSE: CT Rad equipment meets quality standard of care and radiation dose reduction techniq ues were employed. CTDIvol: 64.6 mGy. DLP: 1292 mGy-cm.mGy. LIMITATIONS: None. FINDINGS: VENTRICLES: Prominent. CEREBRUM: No masses. No hemorrhage. No midline shift. Areas of low density in the white matter mos t likely due to chronic micro-vascular ischemic change. No evidence for acute infarction. CEREBELLUM: No masses. No hemorrhage. No alteration of density. No evidence for acute infarction. EXTRAAXIAL SPACES: Age-related involutional change. No fluid collections. No masses. Subdural jing shawn has resolved. ORBITS AND GLOBE: No intra- or extraconal masses. Normal contour of globe without masses. CALVARIUM: No fracture. PARANASAL SINUSES: No fluid or mucosal thickening. SOFT TISSUES: No mass or hematoma. OTHER: No other significant finding. IMPRESSION: Chronic atrophy microvascular ischemia. No acute changes. No subdural hematoma. EVIDENCE OF ACUTE STROKE: NO. TECHNICAL DOCUMENTATION: JOB ID: [id number] Quality ID # [id number]: Final reports with documentation of one or more dose reduction techniques (e.g., Au tomated exposure control, adjustment of the mA and/or kV according to patient size, use of iterative reconstruction technique) 2010 [employer]- All Rights Reserved
[2017-04-09] MEDS ORDERED: METFORMIN HCL 500 MG TABLET PO ONE (12:00)
[2017-04-09] MEDS ORDERED: MEMANTINE HCL 10 MG TABLET PO ONE (12:00)
[2017-04-09] MEDS ORDERED: SENNOSIDES/DOCUSATE 8.6-50 MG 1 EACH TABLET PO ONE (12:00)
[2017-04-09] MEDS: INSULIN LISPRO 100 UNIT/ML 3 ML VIAL SUBCUT PRN ×2 (13:48→16:28)
[2017-04-09] MEDS ORDERED: ENOXAPARIN SODIUM INJ 40 MG/0.4 ML DISP.SYRIN SUBCUT ONE (14:00)
[2017-04-09] MEDS: CLINDAMYCIN 300 MG/D5W RTU 300 MG/50 ML RTUPB IV SCH ×2 (15:27→22:38)
[2017-04-09] MEDS: DOCUSATE SODIUM 100 MG CAPSULE PO SCH (17:16)
[2017-04-09] MEDS ORDERED: (PENDING PHARMACY ID) (Donepezil Hcl [Aricept] 10 MG) PO SCH (22:00)
[2017-04-09] MEDS: MEMANTINE HCL 10 MG TABLET PO SCH (22:38)
[2017-04-09] MEDS: DONEPEZIL HCL 5 MG TABLET PO SCH (22:38)
[2017-04-09] MEDS: METFORMIN HCL 500 MG TABLET PO SCH (22:38)
[2017-04-09] MEDS: SENNOSIDES/DOCUSATE 8.6-50 MG 1 EACH TABLET PO SCH (23:43)
[2017-04-10] MEDS: NORMAL SALINE 1000 ML 1,000 ML IV PRN (00:56)
[2017-04-10] MEDS: IPRATROPIUM/ALBUTEROL 0.5-2.5 MG/3 ML AMPUL NEB SCH ×4 (01:55→19:43)
[2017-04-10] MEDS: CLINDAMYCIN 300 MG/D5W RTU 300 MG/50 ML RTUPB IV SCH ×3 (05:09→21:26)
[2017-04-10] MEDS: LEVOTHYROXINE SODIUM 0.088 MG TABLET PO SCH (05:09)
[2017-04-10 05:21] LABS: HGB HCT DIFFERENCE -1.9; MEAN CORPUSCULAR HEMOGLOBIN 26.5 pg (27.0-33.4); MEAN CORPUSCULAR HGB CONC 31.4 g/dL (32.0-36.0); MEAN CORPUSCULAR VOLUME 84 fl (80-97); RED BLOOD COUNT 3.67 10^6/uL (3.72-5.28); RED CELL DISTRIBUTION WIDTH 19.6 % (11.5-14.0); WHITE BLOOD COUNT 18.2 10^3/uL (4.0-10.5)
[2017-04-10 05:29] LABS: HEMOGLOBIN 9.7 g/dL (12.0-15.5)
[2017-04-10 05:31] LABS: ALANINE AMINOTRANSFERASE 32 U/L (9-52); ALBUMIN 2.8 g/dL (3.5-5.0); ALKALINE PHOSPHATASE 83 U/L (38-126); ANION GAP 12 (5-19); ASPARTATE AMINO TRANSFERASE 23 U/L (14-36); BILIRUBIN,DIRECT 0.4 mg/dL (0.0-0.4); BILIRUBIN,TOTAL 0.4 mg/dL (0.2-1.3); BLOOD UREA NITROGEN 23 mg/dL (7-20); CALCIUM 7.5 mg/dL (8.4-10.2); CARBON DIOXIDE 26 mmol/L (22-30); CHLORIDE 108 mmol/L (98-107); CREATININE RESULT 0.73 mg/dL (0.52-1.25); GLUCOSE 197 mg/dL (75-110); SODIUM 146.3 mmol/L (137-145); TOTAL PROTEIN 5.8 g/dL (6.3-8.2)
[2017-04-10 05:41] LABS: BASOPHILS % (MANUAL) 0 % (0-2); EOSINOPHILS % (MANUAL) 0 % (0-6); LYMPHOCYTES % (MANUAL) 4 % (13-45); TOTAL CELLS COUNTED 100
[2017-04-10 05:42] LABS: POTASSIUM 2.7 mmol/L (3.6-5.0)
[2017-04-10 05:46] LABS: ACANTHOCYTES SLIGHT; ANISOCYTOSIS 2+; BURR CELLS 1+; HYPOCHROMASIA 1+; POIKILOCYTOSIS 2+; POLYCHROMASIA SLIGHT; TOXIC GRANULATION SLIGHT; TOXIC VACUOLATION PRESENT
[2017-04-10 05:47] LABS: OVALOCYTES 1+; TARGET CELLS SLIGHT
[2017-04-10 05:48] LABS: BAND NEUTROPHILS % (MANUAL) 14 % (3-5)
[2017-04-10] MEDS ORDERED: LEVOTHYROXINE SODIUM 0.05 MG TABLET PO SCH (06:00)
[2017-04-10] MEDS ORDERED: POTASSIUM CHLORIDE 10 MEQ TABLET.SA PO ONE (07:00)
[2017-04-10] MEDS: POTASSIUM CHLORIDE 20 MEQ/50 ML RTU IV SCH ×2 (07:50→10:35)
[2017-04-10] MEDS: INSULIN LISPRO 100 UNIT/ML 3 ML VIAL SUBCUT PRN (08:22)
[2017-04-10] MEDS ORDERED: POTASSIUM CHLORIDE 20 MEQ/15 ML UDCUP PO ONE (08:30)
--- NOTE | 2017-04-10 09:24 | PDOC PROGRESS REPORT ---
Subjective Progress Note for:: 04/10/17 Subjective:: Patient is currently doing fair Patient's p.o. intake is fair per nursing staff Nausea no vomiting His potassium is low Patients have up to positive bowel movement Since blood cultures positive for gram-positive cocci Physical Exam Vital Signs: Temp Pulse Resp BP Pulse Ox 97.7 F 76 16 146/72 H 100 04/10/17 07:25 04/10/17 07:25 04/10/17 07:25 04/10/17 07:25 04/10/17 07:25 Intake & Output 04/09/17 04/10/17 04/11/17 06:59 06:59 06:59 Intake Total 2400 Output Total 850 Balance 1550 Weight 48.5 kg General appearance: PRESENT: no acute distress Eye exam: PRESENT: PERRLA Neck exam: ABSENT: JVD Respiratory exam: PRESENT: clear to auscultation sandra Cardiovascular exam: PRESENT: +S1, +S2 GI/Abdominal exam: PRESENT: distended, normal bowel sounds, soft. ABSENT: tenderness Neurological exam: PRESENT: alert, awake Skin exam: PRESENT: dry Results Laboratory Results: 04/10/17 04:48 04/10/17 04:48 04/09/17 04/10/17 04/10/17 09:15 04:48 04:48 WBC 18.2 H RBC 3.67 L Hgb 9.7 L D Hct 31.0 L MCV 84 MCH 26.5 L MCHC 31.4 L RDW 19.6 H Plt Count 375 Seg Neutrophils % Not Reportable Lymphocytes % Not Reportable Monocytes % Not Reportable Eosinophils % Not Reportable Basophils % Not Reportable Absolute Neutrophils Not Reportable Absolute Lymphocytes Not Reportable Absolute Monocytes Not Reportable Absolute Eosinophils Not Reportable Absolute Basophils Not Reportable Sodium 146.3 H Potassium 2.7 L* D Chloride 108 H Carbon Dioxide 26 Anion Gap 12 BUN 23 H Creatinine 0.73 Est GFR ( Amer) > 60 Est GFR (Non-Af Amer) > 60 Glucose 197 H Lactic Acid 3.9 H Calcium 7.5 L Total Bilirubin 0.4 AST 23 ALT 32 Alkaline Phosphatase 83 Total Protein 5.8 L Albumin 2.8 L Impressions: Head CT 04/09/17 00:00 IMPRESSION: Chronic atrophy microvascular ischemia. No acute changes. No subdural hematoma. EVIDENCE OF ACUTE STROKE: NO. Abdomen/Pelvis CT 04/09/17 04:00 IMPRESSION: 1. Small-moderate bilateral lower lobar pneumonia/fibrosis. 2. Moderate rectal stool retention. Chest X-Ray 04/09/17 04:00 IMPRESSION: Small left lower hemithoracic pneumonia/atelectasis. Surveillance radiographs recommended within 7-12 weeks. KUB X-Ray 04/09/17 04:00 IMPRESSION: Moderate sigmoid stool retention with moderate nonspecific gaseous dilation of large bowel. Assessment & Plan - Diagnosis (1) Pneumonia Qualifiers: Pneumonia type: due to unspecified organism Laterality: left Lung location: lower lobe of lung Qualified Code(s): J18.1 - Lobar pneumonia, unspecified organism Is this a current diagnosis for this admission?: Yes Plan: Will cover the gram-positive gram-negative and anaerobic organisms Start the patient on the cefepime and clindamycin's and patient already received 1 dose of vancomycin's we will get the sputum cultures blood culture and urine cultures (2) Severe sepsis Is this a current diagnosis for this admission?: Yes Plan: Covered as above antibiotic wait for the culture and sensitivity (3) Alzheimer disease Qualifiers: Dementia behavioral disturbance: with behavioral disturbance Is this a current diagnosis for this admission?: Yes Plan: Continues to current medications (4) Subdural hematoma Is this a current diagnosis for this admission?: Yes Plan: CT head is negative (5) Type 2 diabetes mellitus Qualifiers: Diabetes mellitus complication status: with unspecified complications Is this a current diagnosis for this admission?: Yes Plan: Continues to current medications (6) Constipation Qualifiers: Constipation type: unspecified constipation type Qualified Code(s): K59.00 - Constipation, unspecified Is this a current diagnosis for this admission?: Yes Plan: Will get the x-ray KUB continues to current stool softener - Time Time Spent with patient: 15-24 minutes Medications reviewed and adjusted accordingly: Yes Anticipated discharge: SNF Within: Other - Inpatient Certification Medical Necessity: Need Close Monitoring Due to Risk of Patient Decompensation, Need For IV Fluids, Need for IV Antibiotics Post Hospital Care: D/C Psychologist Clinical Documentation - Plan Summary Plan Summary: Replace the potassiums Get a x-ray KUB Follow the lab this afternoon
--- NOTE | 2017-04-10 09:52 | RADIOLOGY REPORT (SQ) ---
EXAM DESCRIPTION: KUB/ABDOMEN (SINGLE VIEW) COMPLETED DATE/TIME: 04/10/2017 9:40 am REASON FOR STUDY: abd distetion COMPARISON: Abdominal CT scan KUB dated 04/09/2017 NUMBER OF VIEWS: One view. TECHNIQUE: Supine radiographic image of the abdomen acquired. LIMITATIONS: None. FINDINGS: BOWEL GAS PATTERN: There is gaseous distention of multiple bowel loops which was present o n the previous study. The amount of colonic distention appears decreased as compared to the previous study. Moderate amount of fecal material is again identified in the rectosigmoid. While this may o nly represent an ileus pattern, the possibility of an underlying obstruction cannot be excluded. Cli nical correlation and followup is recommended. CALCIFICATIONS: No suspicious calcifications. SOFT TISSUES: No gross mass or suggestion of organomegaly. HARDWARE: None in the abdomen. BONES: No acute fracture. No worrisome bone lesions. OTHER: No other significant finding. IMPRESSION: Gaseous distention of multiple bowel loops as noted above. While this may only represen t an ileus pattern, the possibility of an underlying obstruction cannot be excluded. Clinical correl ation and followup is recommended. Other findings as noted above TECHNICAL DOCUMENTATION: JOB ID: [id number] [email or web address]- All Rights Reserved
[2017-04-10] MEDS: ENOXAPARIN SODIUM INJ 40 MG/0.4 ML DISP.SYRIN SUBCUT SCH (10:35)
[2017-04-10] MEDS: METFORMIN HCL 500 MG TABLET PO SCH ×2 (10:35→21:26)
[2017-04-10] MEDS: FAMOTIDINE INJ/PF 20 MG/2 ML SDV IV SCH ×2 (10:35→21:26)
[2017-04-10] MEDS: SENNOSIDES/DOCUSATE 8.6-50 MG 1 EACH TABLET PO SCH ×2 (10:35→21:27)
[2017-04-10] MEDS: MEMANTINE HCL 10 MG TABLET PO SCH ×2 (10:35→21:26)
[2017-04-10] MEDS: GUAIFENESIN 600 MG TABLET.SA PO SCH ×2 (10:50→21:26)
[2017-04-10] MEDS: DOCUSATE SODIUM 100 MG CAPSULE PO SCH (10:50)
[2017-04-10] MEDS: POLYETHYLENE GLYCOL 3350 POWDER 17 GM/1 PACKET PO SCH (12:44)
[2017-04-10] MEDS: FOLIC ACID 1 MG TABLET PO SCH (12:44)
[2017-04-10] MEDS: CEFEPIME 2 GM/D5W RTU 2 GM/50 ML RTUPB IV SCH ×2 (12:44→23:38)
[2017-04-10] MEDS: LOSARTAN POTASSIUM 50 MG TABLET PO SCH (12:44)
[2017-04-10] MEDS ORDERED: NA PHOS,M-B/NA PHOS,DI-BA (ADULT) 133 ML ENEMA PR ONE (14:30)
--- NOTE | 2017-04-10 14:38 | EKG REPORT ---
SEVERITY:- ABNORMAL ECG - SINUS RHYTHM BIATRIAL ABNORMALITIES BORDERLINE LEFT AXIS DEVIATION : Confirmed by: Renata Yates MD 10-Apr-2017 14:37:29
[2017-04-10] MEDS: POTASSI CL 20 MEQ/NS 1L 1,000 ML IV PRN (15:33)
[2017-04-10 16:02] LABS: ANION GAP 13 (5-19); BLOOD UREA NITROGEN 20 mg/dL (7-20); CALCIUM 8.1 mg/dL (8.4-10.2); CARBON DIOXIDE 25 mmol/L (22-30); CHLORIDE 110 mmol/L (98-107); CREATININE RESULT 0.71 mg/dL (0.52-1.25); GLUCOSE 159 mg/dL (75-110); SODIUM 148.4 mmol/L (137-145)
[2017-04-10 16:19] LABS: POTASSIUM 3.9 mmol/L (3.6-5.0)
[2017-04-10] MEDS: DONEPEZIL HCL 5 MG TABLET PO SCH (21:26)
[2017-04-11] MEDS: IPRATROPIUM/ALBUTEROL 0.5-2.5 MG/3 ML AMPUL NEB SCH ×4 (01:51→20:49)
[2017-04-11] MEDS: CLINDAMYCIN 300 MG/D5W RTU 300 MG/50 ML RTUPB IV SCH ×3 (05:29→21:53)
[2017-04-11] MEDS: LEVOTHYROXINE SODIUM 0.088 MG TABLET PO SCH (05:29)
[2017-04-11 05:33] LABS: ABSOLUTE MONOCYTES (AUTO) 0.7 10^3/uL (0.1-1.4); ABSOLUTE NEUT (AUTO) 12.7 10^3/uL (1.7-8.2); BASOPHILS % (AUTO) 0.3 % (0-2); EOSINOPHILS % (AUTO) 0.3 % (0-6); HEMATOCRIT 33.7 % (36.0-47.0); HEMOGLOBIN 10.6 g/dL (12.0-15.5); HGB HCT DIFFERENCE -1.9; LYMPHOCYTES % (AUTO) 7.1 % (13-45); MEAN CORPUSCULAR HEMOGLOBIN 26.7 pg (27.0-33.4); MEAN CORPUSCULAR HGB CONC 31.4 g/dL (32.0-36.0); MEAN CORPUSCULAR VOLUME 85 fl (80-97); MONOCYTES % (AUTO) 4.8 % (3-13); RED BLOOD COUNT 3.96 10^6/uL (3.72-5.28); RED CELL DISTRIBUTION WIDTH 20.1 % (11.5-14.0); SEGMENTED NEUTROPHILS % (AUTO) 87.5 % (42-78); WHITE BLOOD COUNT 14.5 10^3/uL (4.0-10.5)
[2017-04-11 05:46] LABS: ALANINE AMINOTRANSFERASE 27 U/L (9-52); ALKALINE PHOSPHATASE 128 U/L (38-126); ANION GAP 13 (5-19); ASPARTATE AMINO TRANSFERASE 38 U/L (14-36); BILIRUBIN,DIRECT 0.5 mg/dL (0.0-0.4); BILIRUBIN,TOTAL 0.6 mg/dL (0.2-1.3); BLOOD UREA NITROGEN 18 mg/dL (7-20); CALCIUM 7.9 mg/dL (8.4-10.2); CARBON DIOXIDE 27 mmol/L (22-30); CHLORIDE 110 mmol/L (98-107); CREATININE RESULT 0.66 mg/dL (0.52-1.25); GLUCOSE 128 mg/dL (75-110); POTASSIUM 3.3 mmol/L (3.6-5.0); SODIUM 149.6 mmol/L (137-145); TOTAL PROTEIN 6.4 g/dL (6.3-8.2)
[2017-04-11] MEDS ORDERED: LEVOTHYROXINE SODIUM 0.025 MG TABLET PO SCH (06:00)
[2017-04-11] MEDS: POTASSI CL 20 MEQ/NS 1L 1,000 ML IV PRN (08:37)
--- NOTE | 2017-04-11 09:26 | PDOC PROGRESS REPORT ---
Subjective Progress Note for:: 04/11/17 Subjective:: Patient is currently doing fair Still have a very loose stools Seen by general surgery and order the enema pt potassium is still low Physical Exam Vital Signs: Temp Pulse Resp BP Pulse Ox 97.4 F 96 17 135/86 H 100 04/11/17 07:53 04/11/17 08:45 04/11/17 07:53 04/11/17 08:45 04/11/17 07:53 Intake & Output 04/10/17 04/11/17 04/12/17 06:59 06:59 06:59 Intake Total 2400 2274 Output Total 850 1050 Balance 1550 1224 Weight 48.5 kg 51.1 kg General appearance: PRESENT: no acute distress Eye exam: PRESENT: PERRLA Mouth exam: PRESENT: neck supple Neck exam: ABSENT: JVD Respiratory exam: PRESENT: clear to auscultation sandra Cardiovascular exam: PRESENT: +S1, +S2 GI/Abdominal exam: PRESENT: distended, normal bowel sounds, soft Extremities exam: ABSENT: pedal edema Neurological exam: PRESENT: alert, awake Results Laboratory Results: 04/11/17 04:48 04/11/17 04:48 04/10/17 04/10/17 04/11/17 15:30 15:30 04:48 WBC 14.5 H RBC 3.96 Hgb 10.6 L Hct 33.7 L MCV 85 MCH 26.7 L MCHC 31.4 L RDW 20.1 H Plt Count 324 Seg Neutrophils % 87.5 H Lymphocytes % 7.1 L Monocytes % 4.8 Eosinophils % 0.3 Basophils % 0.3 Absolute Neutrophils 12.7 H Absolute Lymphocytes 1.0 Absolute Monocytes 0.7 Absolute Eosinophils 0.0 Absolute Basophils 0.0 Sodium 148.4 H Potassium 3.9 D Chloride 110 H Carbon Dioxide 25 Anion Gap 13 BUN 20 Creatinine 0.71 Est GFR ( Amer) > 60 Est GFR (Non-Af Amer) > 60 Glucose 159 H Calcium 8.1 L Magnesium 2.0 Total Bilirubin AST ALT Alkaline Phosphatase Total Protein Albumin 04/11/17 04:48 WBC RBC Hgb Hct MCV MCH MCHC RDW Plt Count Seg Neutrophils % Lymphocytes % Monocytes % Eosinophils % Basophils % Absolute Neutrophils Absolute Lymphocytes Absolute Monocytes Absolute Eosinophils Absolute Basophils Sodium 149.6 H Potassium 3.3 L Chloride 110 H Carbon Dioxide 27 Anion Gap 13 BUN 18 Creatinine 0.66 Est GFR ( Amer) > 60 Est GFR (Non-Af Amer) > 60 Glucose 128 H Calcium 7.9 L Magnesium Total Bilirubin 0.6 AST 38 H ALT 27 Alkaline Phosphatase 128 H Total Protein 6.4 Albumin 3.0 L Impressions: Head CT 04/09/17 00:00 IMPRESSION: Chronic atrophy microvascular ischemia. No acute changes. No subdural hematoma. EVIDENCE OF ACUTE STROKE: NO. Abdomen/Pelvis CT 04/09/17 04:00 IMPRESSION: 1. Small-moderate bilateral lower lobar pneumonia/fibrosis. 2. Moderate rectal stool retention. Chest X-Ray 04/09/17 04:00 IMPRESSION: Small left lower hemithoracic pneumonia/atelectasis. Surveillance radiographs recommended within 7-12 weeks. KUB X-Ray 04/10/17 00:00 IMPRESSION: Gaseous distention of multiple bowel loops as noted above. While this may only represent an ileus pattern, the possibility of an underlying obstruction cannot be excluded. Clinical correlation and followup is recommended. Other findings as noted above Assessment & Plan - Diagnosis (1) Pneumonia Qualifiers: Pneumonia type: due to unspecified organism Laterality: bilateral Lung location: lower lobe of lung Qualified Code(s): J18.9 - Pneumonia, unspecified organism Is this a current diagnosis for this admission?: Yes Plan: Will cover the gram-positive gram-negative and anaerobic organisms Start the patient on the cefepime and clindamycin's and patient already received 1 dose of vancomycin's we will get the sputum cultures blood culture and urine cultures (2) Severe sepsis Is this a current diagnosis for this admission?: Yes Plan: Covered as above antibiotic wait for the culture and sensitivity (3) Alzheimer disease Qualifiers: Dementia behavioral disturbance: with behavioral disturbance Is this a current diagnosis for this admission?: Yes Plan: Continues to current medications (4) Subdural hematoma Is this a current diagnosis for this admission?: Yes (5) Type 2 diabetes mellitus Qualifiers: Diabetes mellitus complication status: with unspecified complications Is this a current diagnosis for this admission?: Yes Plan: Continues to current medications (6) Constipation Qualifiers: Constipation type: unspecified constipation type Qualified Code(s): K59.00 - Constipation, unspecified Is this a current diagnosis for this admission?: Yes (7) Abdominal distention Is this a current diagnosis for this admission?: Yes Plan: Possible ileus versus may be a lot of gas with possible oliger syndrome Patient scheduled for the abdominal x-ray follow with the general surgery Replace the potassiums - Time Time Spent with patient: 15-24 minutes Medications reviewed and adjusted accordingly: Yes Anticipated discharge: Other Within: Other - Inpatient Certification Medical Necessity: Need For IV Fluids, Need for IV Antibiotics Post Hospital Care: D/C Color Artist Documentation - Plan Summary Plan Summary: Continues to IV antibiotic Replace the potassium Follow with the surgery
[2017-04-11] MEDS ORDERED: POTASSIUM CHLORIDE 20 MEQ/15 ML UDCUP PO ONE (09:30)
--- NOTE | 2017-04-11 09:50 | RADIOLOGY REPORT (SQ) ---
EXAM DESCRIPTION: ABDOMEN 2 VIEWS COMPLETED DATE/TIME: 04/11/2017 9:40 am REASON FOR STUDY: distension COMPARISON: 04/10/2017. NUMBER OF VIEWS: Two views. TECHNIQUE: Supine and erect/decubitus radiographic images of the abdomen acquired. LIMITATIONS: None. FINDINGS: FREE AIR: None. No abnormal gas collections. LUNGS: Patchy airspace disease left lower lobe particularly. BOWEL GAS PATTERN: Diffuse gaseous distention. Some of this looks like small bowel, however most is likely redundant gas distended colon. Rectal stool appears to have largely cleared. Overall degree of gaseous distention looks slightly progressive, however. CALCIFICATIONS: No suspicious calcifications. SOFT TISSUES: No gross mass or suggestion of organomegaly. HARDWARE: None in the abdomen. BONES: No acute fracture. No worrisome bone lesions. OTHER: No other significant finding. IMPRESSION: Improved rectal stool but slight progression in generalized gaseous distention throughou t the abdomen and pelvis. TECHNICAL DOCUMENTATION: JOB ID: [id number] [employer]- All Rights Reserved
[2017-04-11] MEDS: FAMOTIDINE INJ/PF 20 MG/2 ML SDV IV SCH ×2 (10:20→21:54)
[2017-04-11] MEDS: ENOXAPARIN SODIUM INJ 40 MG/0.4 ML DISP.SYRIN SUBCUT SCH (10:20)
[2017-04-11] MEDS: SENNOSIDES/DOCUSATE 8.6-50 MG 1 EACH TABLET PO SCH ×2 (10:23→22:01)
[2017-04-11] MEDS: GUAIFENESIN 600 MG TABLET.SA PO SCH ×2 (10:23→21:53)
[2017-04-11] MEDS: METFORMIN HCL 500 MG TABLET PO SCH ×2 (10:24→21:54)
[2017-04-11] MEDS: MEMANTINE HCL 10 MG TABLET PO SCH ×2 (10:24→21:53)
[2017-04-11] MEDS: CEFEPIME 2 GM/D5W RTU 2 GM/50 ML RTUPB IV SCH ×2 (11:17→23:04)
[2017-04-11] MEDS: FOLIC ACID 1 MG TABLET PO SCH (11:17)
[2017-04-11] MEDS: LOSARTAN POTASSIUM 50 MG TABLET PO SCH (11:17)
[2017-04-11] MEDS: POLYETHYLENE GLYCOL 3350 POWDER 17 GM/1 PACKET PO SCH (11:17)
--- NOTE | 2017-04-11 15:33 | PDOC PROGRESS REPORT ---
Subjective Progress Note for:: 04/11/17 Subjective:: nO ABDOMINAL PAIN tOLERATING DIET Physical Exam Vital Signs: Temp Pulse Resp BP Pulse Ox 97.5 F 82 16 141/77 H 97 04/11/17 12:07 04/11/17 14:18 04/11/17 14:18 04/11/17 12:07 04/11/17 14:18 Intake & Output 04/10/17 04/11/17 04/12/17 06:59 06:59 06:59 Intake Total 2400 2274 60 Output Total 850 1050 600 Balance 1550 1224 -540 Weight 48.5 kg 51.1 kg GI/Abdominal exam: PRESENT: other - Abbdoemen - soft nontender Results Laboratory Results: 04/11/17 04:48 04/11/17 04:48 04/10/17 04/10/17 04/11/17 15:30 15:30 04:48 WBC 14.5 H RBC 3.96 Hgb 10.6 L Hct 33.7 L MCV 85 MCH 26.7 L MCHC 31.4 L RDW 20.1 H Plt Count 324 Seg Neutrophils % 87.5 H Lymphocytes % 7.1 L Monocytes % 4.8 Eosinophils % 0.3 Basophils % 0.3 Absolute Neutrophils 12.7 H Absolute Lymphocytes 1.0 Absolute Monocytes 0.7 Absolute Eosinophils 0.0 Absolute Basophils 0.0 Sodium 148.4 H Potassium 3.9 D Chloride 110 H Carbon Dioxide 25 Anion Gap 13 BUN 20 Creatinine 0.71 Est GFR ( Amer) > 60 Est GFR (Non-Af Amer) > 60 Glucose 159 H Calcium 8.1 L Magnesium 2.0 Total Bilirubin AST ALT Alkaline Phosphatase Total Protein Albumin 04/11/17 04:48 WBC RBC Hgb Hct MCV MCH MCHC RDW Plt Count Seg Neutrophils % Lymphocytes % Monocytes % Eosinophils % Basophils % Absolute Neutrophils Absolute Lymphocytes Absolute Monocytes Absolute Eosinophils Absolute Basophils Sodium 149.6 H Potassium 3.3 L Chloride 110 H Carbon Dioxide 27 Anion Gap 13 BUN 18 Creatinine 0.66 Est GFR ( Amer) > 60 Est GFR (Non-Af Amer) > 60 Glucose 128 H Calcium 7.9 L Magnesium Total Bilirubin 0.6 AST 38 H ALT 27 Alkaline Phosphatase 128 H Total Protein 6.4 Albumin 3.0 L Impressions: Head CT 04/09/17 00:00 IMPRESSION: Chronic atrophy microvascular ischemia. No acute changes. No subdural hematoma. EVIDENCE OF ACUTE STROKE: NO. Abdomen/Pelvis CT 04/09/17 04:00 IMPRESSION: 1. Small-moderate bilateral lower lobar pneumonia/fibrosis. 2. Moderate rectal stool retention. Chest X-Ray 04/09/17 04:00 IMPRESSION: Small left lower hemithoracic pneumonia/atelectasis. Surveillance radiographs recommended within 7-12 weeks. KUB X-Ray 04/10/17 00:00 IMPRESSION: Gaseous distention of multiple bowel loops as noted above. While this may only represent an ileus pattern, the possibility of an underlying obstruction cannot be excluded. Clinical correlation and followup is recommended. Other findings as noted above Abdomen X-Ray 04/11/17 08:00 IMPRESSION: Improved rectal stool but slight progression in generalized gaseous distention throughout the abdomen and pelvis. Assessment & Plan - Plan Summary Plan Summary: Colonic Ileus Constipation PRN Fleet enema No surgical intervention needed Follow up PRN
[2017-04-11] MEDS: INSULIN LISPRO 100 UNIT/ML 3 ML VIAL SUBCUT PRN ×2 (18:09→23:04)
[2017-04-11] MEDS ORDERED: LABETALOL HCL INJ 20 MG/4 ML DISP.SYRIN IV PRN (21:30)
[2017-04-11] MEDS ORDERED: LOSARTAN POTASSIUM 50 MG TABLET PO ONE (21:30)
[2017-04-11] MEDS: DONEPEZIL HCL 5 MG TABLET PO SCH (21:53)
[2017-04-12] MEDS: IPRATROPIUM/ALBUTEROL 0.5-2.5 MG/3 ML AMPUL NEB SCH ×4 (02:02→20:02)
[2017-04-12] MEDS: POTASSI CL 20 MEQ/NS 1L 1,000 ML IV PRN (02:26)
[2017-04-12] MEDS: LEVOTHYROXINE SODIUM 0.088 MG TABLET PO SCH (05:10)
[2017-04-12] MEDS: CLINDAMYCIN 300 MG/D5W RTU 300 MG/50 ML RTUPB IV SCH ×3 (05:10→21:59)
[2017-04-12 07:23] LABS: ALANINE AMINOTRANSFERASE 28 U/L (9-52); ALBUMIN 2.5 g/dL (3.5-5.0); ALKALINE PHOSPHATASE 100 U/L (38-126); ANION GAP 11 (5-19); ASPARTATE AMINO TRANSFERASE 31 U/L (14-36); BILIRUBIN,DIRECT 0.3 mg/dL (0.0-0.4); BILIRUBIN,TOTAL 0.3 mg/dL (0.2-1.3); BLOOD UREA NITROGEN 10 mg/dL (7-20); CALCIUM 7.6 mg/dL (8.4-10.2); CARBON DIOXIDE 27 mmol/L (22-30); CHLORIDE 108 mmol/L (98-107); CREATININE RESULT 0.67 mg/dL (0.52-1.25); GLUCOSE 99 mg/dL (75-110); POTASSIUM 3.2 mmol/L (3.6-5.0); SODIUM 145.8 mmol/L (137-145); TOTAL PROTEIN 5.1 g/dL (6.3-8.2)
[2017-04-12 07:41] LABS: HEMATOCRIT 31.1 % (36.0-47.0); HEMOGLOBIN 9.7 g/dL (12.0-15.5); MEAN CORPUSCULAR HEMOGLOBIN 26.4 pg (27.0-33.4); MEAN CORPUSCULAR HGB CONC 31.2 g/dL (32.0-36.0); MEAN CORPUSCULAR VOLUME 85 fl (80-97); RED BLOOD COUNT 3.67 10^6/uL (3.72-5.28); RED CELL DISTRIBUTION WIDTH 19.8 % (11.5-14.0); WHITE BLOOD COUNT 8.2 10^3/uL (4.0-10.5)
[2017-04-12 07:58] LABS: ABSOLUTE EOSINOPHILS# (MANUAL) 0.2 10^3/uL (0.0-0.6); BAND NEUTROPHILS % (MANUAL) 3 % (3-5); BASOPHILS % (MANUAL) 1 % (0-2); EOSINOPHILS % (MANUAL) 2 % (0-6); LYMPHOCYTES % (MANUAL) 26 % (13-45); TOTAL CELLS COUNTED 100
[2017-04-12 08:00] LABS: ANISOCYTOSIS 1+; BURR CELLS SLIGHT; HYPOCHROMASIA SLIGHT; OVALOCYTES SLIGHT; POIKILOCYTOSIS 2+; SCHISTOCYTES SLIGHT; TEAR DROP CELLS SLIGHT
[2017-04-12] MEDS: ENOXAPARIN SODIUM INJ 40 MG/0.4 ML DISP.SYRIN SUBCUT SCH (09:10)
[2017-04-12] MEDS: MEMANTINE HCL 10 MG TABLET PO SCH ×2 (09:11→21:59)
[2017-04-12] MEDS: SENNOSIDES/DOCUSATE 8.6-50 MG 1 EACH TABLET PO SCH ×2 (09:11→22:00)
[2017-04-12] MEDS: GUAIFENESIN 600 MG TABLET.SA PO SCH ×2 (09:11→21:59)
[2017-04-12] MEDS: FAMOTIDINE INJ/PF 20 MG/2 ML SDV IV SCH ×2 (09:11→21:59)
[2017-04-12] MEDS: METFORMIN HCL 500 MG TABLET PO SCH ×2 (09:11→21:59)
--- NOTE | 2017-04-12 09:21 | PDOC PROGRESS REPORT ---
Subjective Progress Note for:: 04/12/17 Subjective:: Patient is feeling better Abdominal distention is much improved and the loose stool is also improved Discussed with the surgeon and suggest no surgical interventions may need a colonoscopy Physical Exam Vital Signs: Temp Pulse Resp BP Pulse Ox 97.4 F 86 16 155/87 H 99 04/12/17 07:31 04/12/17 07:32 04/12/17 07:32 04/12/17 07:31 04/12/17 07:32 Intake & Output 04/11/17 04/12/17 04/13/17 06:59 06:59 06:59 Intake Total 2274 2300 Output Total 1050 1700 Balance 1224 600 Weight 51.1 kg 53.4 kg General appearance: PRESENT: no acute distress Head exam: PRESENT: atraumatic, normocephalic Eye exam: PRESENT: conjunctiva pink, EOMI, PERRLA. ABSENT: scleral icterus Ear exam: PRESENT: normal external ear exam Mouth exam: PRESENT: moist, tongue midline Neck exam: PRESENT: full ROM. ABSENT: carotid bruit, JVD, lymphadenopathy, thyromegaly Respiratory exam: PRESENT: clear to auscultation sandra Cardiovascular exam: PRESENT: RRR. ABSENT: diastolic murmur, rubs, systolic murmur Pulses: PRESENT: normal dorsalis pedis pul, +2 pedal pulses bilateral Vascular exam: PRESENT: normal capillary refill GI/Abdominal exam: PRESENT: normal bowel sounds, soft. ABSENT: distended, guarding, mass, organolmegaly, rebound, tenderness Rectal exam: PRESENT: deferred Neurological exam: PRESENT: alert, awake. ABSENT: motor sensory deficit Psychiatric exam: PRESENT: appropriate affect, normal mood. ABSENT: homicidal ideation, suicidal ideation Skin exam: PRESENT: dry, intact, warm. ABSENT: cyanosis, rash Results Laboratory Results: 04/12/17 06:29 04/12/17 06:29 04/12/17 04/12/17 06:29 06:29 WBC 8.2 RBC 3.67 L Hgb 9.7 L Hct 31.1 L MCV 85 MCH 26.4 L MCHC 31.2 L RDW 19.8 H Plt Count 270 Seg Neutrophils % Not Reportable Lymphocytes % Not Reportable Monocytes % Not Reportable Eosinophils % Not Reportable Basophils % Not Reportable Absolute Neutrophils Not Reportable Absolute Lymphocytes Not Reportable Absolute Monocytes Not Reportable Absolute Eosinophils Not Reportable Absolute Basophils Not Reportable Sodium 145.8 H Potassium 3.2 L Chloride 108 H Carbon Dioxide 27 Anion Gap 11 BUN 10 Creatinine 0.67 Est GFR ( Amer) > 60 Est GFR (Non-Af Amer) > 60 Glucose 99 Calcium 7.6 L Total Bilirubin 0.3 AST 31 ALT 28 Alkaline Phosphatase 100 Total Protein 5.1 L Albumin 2.5 L 04/10/17 13:05 Catheterized Urine Urine Culture - Final NO GROWTH 2 DAYS Impressions: Head CT 04/09/17 00:00 IMPRESSION: Chronic atrophy microvascular ischemia. No acute changes. No subdural hematoma. EVIDENCE OF ACUTE STROKE: NO. Abdomen/Pelvis CT 04/09/17 04:00 IMPRESSION: 1. Small-moderate bilateral lower lobar pneumonia/fibrosis. 2. Moderate rectal stool retention. Chest X-Ray 04/09/17 04:00 IMPRESSION: Small left lower hemithoracic pneumonia/atelectasis. Surveillance radiographs recommended within 7-12 weeks. KUB X-Ray 04/10/17 00:00 IMPRESSION: Gaseous distention of multiple bowel loops as noted above. While this may only represent an ileus pattern, the possibility of an underlying obstruction cannot be excluded. Clinical correlation and followup is recommended. Other findings as noted above Abdomen X-Ray 04/11/17 08:00 IMPRESSION: Improved rectal stool but slight progression in generalized gaseous distention throughout the abdomen and pelvis. Assessment & Plan - Diagnosis (1) Pneumonia Qualifiers: Pneumonia type: due to unspecified organism Laterality: bilateral Lung location: lower lobe of lung Qualified Code(s): J18.9 - Pneumonia, unspecified organism Is this a current diagnosis for this admission?: Yes Plan: Will cover the gram-positive gram-negative and anaerobic organisms Start the patient on the cefepime and clindamycin's and patient already received 1 dose of vancomycin's we will get the sputum cultures blood culture and urine cultures (2) Severe sepsis Is this a current diagnosis for this admission?: Yes Plan: Covered as above antibiotic wait for the culture and sensitivity (3) Alzheimer disease Qualifiers: Dementia behavioral disturbance: with behavioral disturbance Is this a current diagnosis for this admission?: Yes Plan: Continues to current medications (4) Subdural hematoma Is this a current diagnosis for this admission?: Yes Plan: CT head is negative (5) Type 2 diabetes mellitus Qualifiers: Diabetes mellitus complication status: with unspecified complications Is this a current diagnosis for this admission?: Yes Plan: Continues to current medications (6) Constipation Qualifiers: Constipation type: unspecified constipation type Qualified Code(s): K59.00 - Constipation, unspecified Is this a current diagnosis for this admission?: Yes (7) Abdominal distention Is this a current diagnosis for this admission?: Yes Plan: Currently all improving
[2017-04-12] MEDS ORDERED: POTASSIUM CHLORIDE 20 MEQ/15 ML UDCUP PO ONE (09:45)
[2017-04-12] MEDS: FOLIC ACID 1 MG TABLET PO SCH (12:35)
[2017-04-12] MEDS: LOSARTAN POTASSIUM 50 MG TABLET PO SCH (12:35)
[2017-04-12] MEDS: CEFEPIME 2 GM/D5W RTU 2 GM/50 ML RTUPB IV SCH ×2 (12:35→23:16)
[2017-04-12] MEDS: POLYETHYLENE GLYCOL 3350 POWDER 17 GM/1 PACKET PO SCH (12:35)
[2017-04-12] MEDS: DONEPEZIL HCL 5 MG TABLET PO SCH (21:59)
[2017-04-12] MEDS: INSULIN LISPRO 100 UNIT/ML 3 ML VIAL SUBCUT PRN (23:12)
[2017-04-13] MEDS: IPRATROPIUM/ALBUTEROL 0.5-2.5 MG/3 ML AMPUL NEB SCH ×4 (02:05→19:43)
[2017-04-13 05:39] LABS: HEMATOCRIT 34.3 % (36.0-47.0); HEMOGLOBIN 10.9 g/dL (12.0-15.5); HGB HCT DIFFERENCE -1.6; MEAN CORPUSCULAR HEMOGLOBIN 26.5 pg (27.0-33.4); MEAN CORPUSCULAR HGB CONC 31.8 g/dL (32.0-36.0); MEAN CORPUSCULAR VOLUME 83 fl (80-97); RED BLOOD COUNT 4.11 10^6/uL (3.72-5.28); RED CELL DISTRIBUTION WIDTH 19.5 % (11.5-14.0); WHITE BLOOD COUNT 10.2 10^3/uL (4.0-10.5)
[2017-04-13] MEDS: CLINDAMYCIN 300 MG/D5W RTU 300 MG/50 ML RTUPB IV SCH ×3 (05:43→23:16)
[2017-04-13] MEDS: LEVOTHYROXINE SODIUM 0.088 MG TABLET PO SCH (05:43)
[2017-04-13 05:58] LABS: ANION GAP 9 (5-19); BLOOD UREA NITROGEN 8 mg/dL (7-20); CALCIUM 8.2 mg/dL (8.4-10.2); CARBON DIOXIDE 30 mmol/L (22-30); CHLORIDE 102 mmol/L (98-107); CREATININE RESULT 0.71 mg/dL (0.52-1.25); GLUCOSE 65 mg/dL (75-110); POTASSIUM 3.5 mmol/L (3.6-5.0); SODIUM 141.4 mmol/L (137-145)
[2017-04-13 05:59] LABS: ABSOLUTE EOSINOPHILS# (MANUAL) 0.1 10^3/uL (0.0-0.6); BASOPHILS % (MANUAL) 0 % (0-2); EOSINOPHILS % (MANUAL) 1 % (0-6); LYMPHOCYTES % (MANUAL) 25 % (13-45); TOTAL CELLS COUNTED 100
[2017-04-13] MEDS: POTASSI CL 20 MEQ/NS 1L 1,000 ML IV PRN (05:59)
[2017-04-13 06:00] LABS: TOXIC GRANULATION SLIGHT; TOXIC VACUOLATION PRESENT
[2017-04-13 06:01] LABS: ANISOCYTOSIS 2+; OVALOCYTES 1+; POIKILOCYTOSIS 1+
[2017-04-13] MEDS: METFORMIN HCL 500 MG TABLET PO SCH ×2 (11:44→23:14)
[2017-04-13] MEDS: FAMOTIDINE INJ/PF 20 MG/2 ML SDV IV SCH ×2 (11:44→23:14)
[2017-04-13] MEDS: LOSARTAN POTASSIUM 50 MG TABLET PO SCH (11:45)
[2017-04-13] MEDS: ENOXAPARIN SODIUM INJ 40 MG/0.4 ML DISP.SYRIN SUBCUT SCH (11:48)
[2017-04-13] MEDS: FOLIC ACID 1 MG TABLET PO SCH (11:48)
[2017-04-13] MEDS: MEMANTINE HCL 10 MG TABLET PO SCH ×2 (11:48→23:15)
[2017-04-13] MEDS: CEFEPIME 2 GM/D5W RTU 2 GM/50 ML RTUPB IV SCH (11:49)
[2017-04-13] MEDS: SENNOSIDES/DOCUSATE 8.6-50 MG 1 EACH TABLET PO SCH ×2 (11:51→23:14)
[2017-04-13] MEDS: POLYETHYLENE GLYCOL 3350 POWDER 17 GM/1 PACKET PO SCH (11:51)
[2017-04-13] MEDS: GUAIFENESIN 600 MG TABLET.SA PO SCH ×2 (11:51→23:15)
[2017-04-13 13:45] LABS: PATH REVIEW PATHOLOGIST REVIEWED
--- NOTE | 2017-04-13 21:42 | PDOC PROGRESS REPORT ---
Subjective Progress Note for:: 04/13/17 Subjective:: Patient was admitted for the management of pneumonia and sepsis, blood culture grew Staphylococcus capitis she was seen by the bedside.she has loose stool probably secondary to enema Reason For Visit: PNEUMONIA Physical Exam Vital Signs: Temp Pulse Resp BP Pulse Ox 98.5 F 88 18 130/100 H 100 04/13/17 19:48 04/13/17 19:48 04/13/17 19:48 04/13/17 19:48 04/13/17 19:48 Intake & Output 04/12/17 04/13/17 04/14/17 06:59 06:59 06:59 Intake Total 2300 1977 1175 Output Total 1700 0 400 Balance 600 -73 775 Weight 53.4 kg 52 kg Head exam: PRESENT: atraumatic, normocephalic Eye exam: PRESENT: conjunctiva pink, EOMI, PERRLA Ear exam: PRESENT: normal external ear exam Mouth exam: PRESENT: moist, tongue midline Neck exam: PRESENT: full ROM Respiratory exam: PRESENT: rhonchi Cardiovascular exam: PRESENT: RRR, +S1, +S2 Vascular exam: PRESENT: normal capillary refill GI/Abdominal exam: PRESENT: normal bowel sounds, soft Rectal exam: PRESENT: deferred Neurological exam: PRESENT: alert Psychiatric exam: PRESENT: appropriate affect, normal mood Skin exam: PRESENT: dry, intact, warm. ABSENT: cyanosis, rash Results Laboratory Results: 04/13/17 04:52 04/13/17 04:52 04/13/17 04/13/17 04:52 04:52 WBC 10.2 RBC 4.11 Hgb 10.9 L Hct 34.3 L MCV 83 MCH 26.5 L MCHC 31.8 L RDW 19.5 H Plt Count 301 Seg Neutrophils % Not Reportable Lymphocytes % Not Reportable Monocytes % Not Reportable Eosinophils % Not Reportable Basophils % Not Reportable Absolute Neutrophils Not Reportable Absolute Lymphocytes Not Reportable Absolute Monocytes Not Reportable Absolute Eosinophils Not Reportable Absolute Basophils Not Reportable Sodium 141.4 Potassium 3.5 L Chloride 102 Carbon Dioxide 30 Anion Gap 9 BUN 8 Creatinine 0.71 Est GFR ( Amer) > 60 Est GFR (Non-Af Amer) > 60 Glucose 65 L Calcium 8.2 L Impressions: Head CT 04/09/17 00:00 IMPRESSION: Chronic atrophy microvascular ischemia. No acute changes. No subdural hematoma. EVIDENCE OF ACUTE STROKE: NO. Abdomen/Pelvis CT 04/09/17 04:00 IMPRESSION: 1. Small-moderate bilateral lower lobar pneumonia/fibrosis. 2. Moderate rectal stool retention. Chest X-Ray 04/09/17 04:00 IMPRESSION: Small left lower hemithoracic pneumonia/atelectasis. Surveillance radiographs recommended within 7-12 weeks. KUB X-Ray 04/10/17 00:00 IMPRESSION: Gaseous distention of multiple bowel loops as noted above. While this may only represent an ileus pattern, the possibility of an underlying obstruction cannot be excluded. Clinical correlation and followup is recommended. Other findings as noted above Abdomen X-Ray 04/11/17 08:00 IMPRESSION: Improved rectal stool but slight progression in generalized gaseous distention throughout the abdomen and pelvis. Assessment & Plan - Diagnosis (1) Pneumonia Qualifiers: Pneumonia type: due to unspecified organism Laterality: bilateral Lung location: lower lobe of lung Qualified Code(s): J18.9 - Pneumonia, unspecified organism Is this a current diagnosis for this admission?: Yes (2) Staphylococcus septicemia Is this a current diagnosis for this admission?: Yes (3) Fecal impaction Is this a current diagnosis for this admission?: Yes - Plan Summary Plan Summary: She will continue the IV antibiotic and all other treatment
[2017-04-13] MEDS: DONEPEZIL HCL 5 MG TABLET PO SCH (23:15)
[2017-04-14] MEDS: CEFEPIME 2 GM/D5W RTU 2 GM/50 ML RTUPB IV SCH ×3 (00:25→23:41)
[2017-04-14] MEDS: IPRATROPIUM/ALBUTEROL 0.5-2.5 MG/3 ML AMPUL NEB SCH ×4 (02:01→20:12)
[2017-04-14 05:41] LABS: ANION GAP 10 (5-19); BLOOD UREA NITROGEN 9 mg/dL (7-20); CALCIUM 8.5 mg/dL (8.4-10.2); CARBON DIOXIDE 31 mmol/L (22-30); CHLORIDE 100 mmol/L (98-107); CREATININE RESULT 0.73 mg/dL (0.52-1.25); GLUCOSE 95 mg/dL (75-110); POTASSIUM 3.1 mmol/L (3.6-5.0); SODIUM 141.4 mmol/L (137-145)
[2017-04-14] MEDS: LEVOTHYROXINE SODIUM 0.088 MG TABLET PO SCH (06:19)
[2017-04-14] MEDS: CLINDAMYCIN 300 MG/D5W RTU 300 MG/50 ML RTUPB IV SCH ×3 (06:19→22:00)
[2017-04-14] MEDS: ENOXAPARIN SODIUM INJ 40 MG/0.4 ML DISP.SYRIN SUBCUT SCH (10:30)
[2017-04-14] MEDS: MEMANTINE HCL 10 MG TABLET PO SCH ×2 (10:31→23:34)
[2017-04-14] MEDS: METFORMIN HCL 500 MG TABLET PO SCH ×2 (10:31→23:34)
[2017-04-14] MEDS: FAMOTIDINE INJ/PF 20 MG/2 ML SDV IV SCH ×2 (10:31→23:35)
[2017-04-14] MEDS: SENNOSIDES/DOCUSATE 8.6-50 MG 1 EACH TABLET PO SCH ×2 (10:31→23:42)
[2017-04-14] MEDS: GUAIFENESIN 600 MG TABLET.SA PO SCH ×2 (10:32→23:42)
[2017-04-14] MEDS: FOLIC ACID 1 MG TABLET PO SCH (13:07)
[2017-04-14] MEDS: LOSARTAN POTASSIUM 50 MG TABLET PO SCH (13:08)
[2017-04-14] MEDS: POLYETHYLENE GLYCOL 3350 POWDER 17 GM/1 PACKET PO SCH (13:51)
[2017-04-14] MEDS ORDERED: POTASSI CL 20 MEQ/50 ML RIDER 20 MEQ/50 ML RTUPB IV ONE (17:15)
[2017-04-14] MEDS ORDERED: POTASSIUM CHLORIDE 10 MEQ TABLET.SA PO ONE (17:30)
[2017-04-14] MEDS ORDERED: POTASSIUM CHLORIDE 20 MEQ/15 ML UDCUP PO ONE (18:30)
--- NOTE | 2017-04-14 21:13 | PDOC PROGRESS REPORT ---
Subjective Progress Note for:: 04/14/17 Subjective:: She was seen by the bedside, she continues to have loose stool with associated hypokalemia. She was admitted for pneumonia. Reason For Visit: PNEUMONIA Physical Exam Vital Signs: Temp Pulse Resp BP Pulse Ox 97.6 F 114 H 18 158/83 H 98 04/14/17 20:17 04/14/17 20:17 04/14/17 15:04 04/14/17 20:21 04/14/17 20:17 Intake & Output 04/13/17 04/14/17 04/15/17 06:59 06:59 06:59 Intake Total 1976 1825 764 Output Total 2049 775 450 Balance -73 1050 314 Weight 52 kg 50.2 kg Head exam: PRESENT: atraumatic, normocephalic Eye exam: PRESENT: conjunctiva pink, EOMI, PERRLA Ear exam: PRESENT: normal external ear exam Mouth exam: PRESENT: moist, tongue midline Neck exam: PRESENT: full ROM Respiratory exam: PRESENT: clear to auscultation sandra Cardiovascular exam: PRESENT: RRR Pulses: PRESENT: normal dorsalis pedis pul, +2 pedal pulses bilateral Vascular exam: PRESENT: normal capillary refill GI/Abdominal exam: PRESENT: normal bowel sounds, soft Rectal exam: PRESENT: deferred Neurological exam: PRESENT: alert Psychiatric exam: PRESENT: appropriate affect, normal mood Skin exam: PRESENT: dry, intact, warm Results Laboratory Results: 04/13/17 04:52 04/14/17 04:47 04/14/17 04:47 Sodium 141.4 Potassium 3.1 L Chloride 100 Carbon Dioxide 31 H Anion Gap 10 BUN 9 Creatinine 0.73 Est GFR ( Amer) > 60 Est GFR (Non-Af Amer) > 60 Glucose 95 Calcium 8.5 Impressions: Head CT 04/09/17 00:00 IMPRESSION: Chronic atrophy microvascular ischemia. No acute changes. No subdural hematoma. EVIDENCE OF ACUTE STROKE: NO. Abdomen/Pelvis CT 04/09/17 04:00 IMPRESSION: 1. Small-moderate bilateral lower lobar pneumonia/fibrosis. 2. Moderate rectal stool retention. Chest X-Ray 04/09/17 04:00 IMPRESSION: Small left lower hemithoracic pneumonia/atelectasis. Surveillance radiographs recommended within 7-12 weeks. KUB X-Ray 04/10/17 00:00 IMPRESSION: Gaseous distention of multiple bowel loops as noted above. While this may only represent an ileus pattern, the possibility of an underlying obstruction cannot be excluded. Clinical correlation and followup is recommended. Other findings as noted above Abdomen X-Ray 04/11/17 08:00 IMPRESSION: Improved rectal stool but slight progression in generalized gaseous distention throughout the abdomen and pelvis. Assessment & Plan - Diagnosis (1) Pneumonia Qualifiers: Pneumonia type: due to unspecified organism Laterality: bilateral Lung location: lower lobe of lung Qualified Code(s): J18.9 - Pneumonia, unspecified organism Is this a current diagnosis for this admission?: Yes (2) Staphylococcus septicemia Is this a current diagnosis for this admission?: Yes (3) Fecal impaction Is this a current diagnosis for this admission?: Yes (4) Hypokalemia Is this a current diagnosis for this admission?: Yes Plan: Replace potassium (5) Diarrhea Qualifiers: Diarrhea type: unspecified type Qualified Code(s): R19.7 - Diarrhea, unspecified Is this a current diagnosis for this admission?: Yes
[2017-04-14] MEDS: DONEPEZIL HCL 5 MG TABLET PO SCH (23:35)
[2017-04-15] MEDS: IPRATROPIUM/ALBUTEROL 0.5-2.5 MG/3 ML AMPUL NEB SCH ×3 (01:43→15:10)
[2017-04-15] MEDS: POTASSI CL 20 MEQ/NS 1L 1,000 ML IV PRN (04:48)
[2017-04-15 05:45] LABS: ANION GAP 10 (5-19); BLOOD UREA NITROGEN 10 mg/dL (7-20); CALCIUM 8.9 mg/dL (8.4-10.2); CARBON DIOXIDE 26 mmol/L (22-30); CHLORIDE 104 mmol/L (98-107); CREATININE RESULT 0.71 mg/dL (0.52-1.25); GLUCOSE 99 mg/dL (75-110); POTASSIUM 3.8 mmol/L (3.6-5.0); SODIUM 140.1 mmol/L (137-145)
[2017-04-15] MEDS: LEVOTHYROXINE SODIUM 0.088 MG TABLET PO SCH (06:24)
[2017-04-15] MEDS: CLINDAMYCIN 300 MG/D5W RTU 300 MG/50 ML RTUPB IV SCH ×3 (06:36→23:21)
[2017-04-15] MEDS: ENOXAPARIN SODIUM INJ 40 MG/0.4 ML DISP.SYRIN SUBCUT SCH (09:49)
[2017-04-15] MEDS: FAMOTIDINE INJ/PF 20 MG/2 ML SDV IV SCH ×2 (09:49→23:20)
[2017-04-15] MEDS: SENNOSIDES/DOCUSATE 8.6-50 MG 1 EACH TABLET PO SCH ×2 (09:49→23:22)
[2017-04-15] MEDS: MEMANTINE HCL 10 MG TABLET PO SCH ×2 (09:49→23:20)
[2017-04-15] MEDS: POTASSIUM CHLORIDE 20 MEQ/15 ML UDCUP PO SCH (09:49)
[2017-04-15] MEDS: GUAIFENESIN 600 MG TABLET.SA PO SCH ×2 (09:49→23:22)
[2017-04-15] MEDS: METFORMIN HCL 500 MG TABLET PO SCH ×2 (09:49→23:20)
[2017-04-15] MEDS ORDERED: POTASSIUM CHLORIDE 10 MEQ TABLET.SA PO SCH (10:00)
[2017-04-15] MEDS: FOLIC ACID 1 MG TABLET PO SCH (12:08)
[2017-04-15] MEDS: LOSARTAN POTASSIUM 50 MG TABLET PO SCH (12:09)
[2017-04-15] MEDS: POLYETHYLENE GLYCOL 3350 POWDER 17 GM/1 PACKET PO SCH (12:09)
[2017-04-15] MEDS: CEFEPIME 2 GM/D5W RTU 2 GM/50 ML RTUPB IV SCH ×2 (12:09→23:40)
--- NOTE | 2017-04-15 16:10 | PDOC PROGRESS REPORT ---
Subjective Progress Note for:: 04/15/17 Subjective:: Patient was seen by the bedside, the potassium from today's blood work is normal , she has less diarrhea Reason For Visit: PNEUMONIA Physical Exam Vital Signs: Temp Pulse Resp BP Pulse Ox 97.4 F 101 H 16 103/60 100 04/15/17 15:18 04/15/17 15:18 04/15/17 15:18 04/15/17 15:18 04/15/17 15:18 Intake & Output 04/14/17 04/15/17 04/16/17 06:59 06:59 06:59 Intake Total 1825 1482 Output Total 775 750 Balance 1050 732 Weight 50.2 kg 50.3 kg General appearance: PRESENT: no acute distress Eye exam: PRESENT: PERRLA Respiratory exam: PRESENT: clear to auscultation sandra Cardiovascular exam: PRESENT: +S1, +S2 GI/Abdominal exam: PRESENT: soft Neurological exam: PRESENT: alert Results Laboratory Results: 04/13/17 04:52 04/15/17 04:56 04/15/17 04:56 Sodium 140.1 Potassium 3.8 Chloride 104 Carbon Dioxide 26 Anion Gap 10 BUN 10 Creatinine 0.71 Est GFR ( Amer) > 60 Est GFR (Non-Af Amer) > 60 Glucose 99 Calcium 8.9 Impressions: Head CT 04/09/17 00:00 IMPRESSION: Chronic atrophy microvascular ischemia. No acute changes. No subdural hematoma. EVIDENCE OF ACUTE STROKE: NO. Abdomen/Pelvis CT 04/09/17 04:00 IMPRESSION: 1. Small-moderate bilateral lower lobar pneumonia/fibrosis. 2. Moderate rectal stool retention. Chest X-Ray 04/09/17 04:00 IMPRESSION: Small left lower hemithoracic pneumonia/atelectasis. Surveillance radiographs recommended within 7-12 weeks. KUB X-Ray 04/10/17 00:00 IMPRESSION: Gaseous distention of multiple bowel loops as noted above. While this may only represent an ileus pattern, the possibility of an underlying obstruction cannot be excluded. Clinical correlation and followup is recommended. Other findings as noted above Abdomen X-Ray 04/11/17 08:00 IMPRESSION: Improved rectal stool but slight progression in generalized gaseous distention throughout the abdomen and pelvis. Assessment & Plan - Diagnosis (1) Pneumonia Qualifiers: Pneumonia type: due to unspecified organism Laterality: bilateral Lung location: lower lobe of lung Qualified Code(s): J18.9 - Pneumonia, unspecified organism Is this a current diagnosis for this admission?: Yes (2) Staphylococcus septicemia Is this a current diagnosis for this admission?: Yes (3) Fecal impaction Is this a current diagnosis for this admission?: Yes (4) Hypokalemia Is this a current diagnosis for this admission?: Yes (5) Diarrhea Qualifiers: Diarrhea type: unspecified type Qualified Code(s): R19.7 - Diarrhea, unspecified Is this a current diagnosis for this admission?: Yes
[2017-04-15] MEDS ORDERED: IPRATROPIUM/ALBUTEROL 0.5-2.5 MG/3 ML AMPUL NEB PRN (16:15)
[2017-04-15] MEDS: DONEPEZIL HCL 5 MG TABLET PO SCH (23:20)
[2017-04-16] MEDS: POTASSI CL 20 MEQ/NS 1L 1,000 ML IV PRN ×2 (03:15→12:42)
[2017-04-16] MEDS: CLINDAMYCIN 300 MG/D5W RTU 300 MG/50 ML RTUPB IV SCH ×2 (05:59→22:55)
[2017-04-16] MEDS: LEVOTHYROXINE SODIUM 0.088 MG TABLET PO SCH (05:59)
[2017-04-16] MEDS: ENOXAPARIN SODIUM INJ 40 MG/0.4 ML DISP.SYRIN SUBCUT SCH (10:10)
[2017-04-16] MEDS: METFORMIN HCL 500 MG TABLET PO SCH ×2 (10:11→23:01)
[2017-04-16] MEDS: GUAIFENESIN 600 MG TABLET.SA PO SCH ×2 (10:11→23:01)
[2017-04-16] MEDS: FAMOTIDINE INJ/PF 20 MG/2 ML SDV IV SCH ×2 (10:11→22:56)
[2017-04-16] MEDS: POTASSIUM CHLORIDE 20 MEQ/15 ML UDCUP PO SCH (10:11)
[2017-04-16] MEDS: MEMANTINE HCL 10 MG TABLET PO SCH ×2 (10:11→22:57)
[2017-04-16] MEDS: SENNOSIDES/DOCUSATE 8.6-50 MG 1 EACH TABLET PO SCH ×2 (10:12→23:01)
[2017-04-16] MEDS: POLYETHYLENE GLYCOL 3350 POWDER 17 GM/1 PACKET PO SCH (11:22)
[2017-04-16 11:50] LABS: HEMATOCRIT 33.7 % (36.0-47.0); HEMOGLOBIN 10.8 g/dL (12.0-15.5); HGB HCT DIFFERENCE -1.3; MEAN CORPUSCULAR HEMOGLOBIN 26.9 pg (27.0-33.4); MEAN CORPUSCULAR HGB CONC 32.1 g/dL (32.0-36.0); MEAN CORPUSCULAR VOLUME 84 fl (80-97); RED BLOOD COUNT 4.02 10^6/uL (3.72-5.28); RED CELL DISTRIBUTION WIDTH 19.2 % (11.5-14.0); WHITE BLOOD COUNT 8.1 10^3/uL (4.0-10.5)
[2017-04-16 12:24] LABS: ANION GAP 11 (5-19); BLOOD UREA NITROGEN 9 mg/dL (7-20); CALCIUM 8.4 mg/dL (8.4-10.2); CARBON DIOXIDE 27 mmol/L (22-30); CHLORIDE 102 mmol/L (98-107); GLUCOSE 85 mg/dL (75-110); POTASSIUM 3.8 mmol/L (3.6-5.0); SODIUM 139.8 mmol/L (137-145)
[2017-04-16] MEDS: FOLIC ACID 1 MG TABLET PO SCH (12:34)
[2017-04-16] MEDS: LOSARTAN POTASSIUM 50 MG TABLET PO SCH (12:34)
[2017-04-16] MEDS: DONEPEZIL HCL 5 MG TABLET PO SCH (22:58)
--- NOTE | 2017-04-16 23:14 | PDOC PROGRESS REPORT ---
Subjective Progress Note for:: 04/16/17 Subjective:: Patient alert, baseline dementia admitted for pneumonia Reason For Visit: PNEUMONIA Physical Exam Vital Signs: Temp Pulse Resp BP Pulse Ox 97.9 F 99 18 159/72 H 100 04/16/17 19:17 04/16/17 19:17 04/16/17 19:17 04/16/17 19:17 04/16/17 19:17 Intake & Output 04/15/17 04/16/17 04/17/17 06:59 06:59 06:59 Intake Total 1482 1320 1248 Output Total 750 1175 725 Balance 732 145 523 Weight 50.3 kg 52.2 kg General appearance: PRESENT: no acute distress Eye exam: PRESENT: PERRLA. ABSENT: scleral icterus Mouth exam: PRESENT: moist, tongue midline Neck exam: PRESENT: full ROM Cardiovascular exam: PRESENT: RRR, +S1, +S2 Vascular exam: PRESENT: normal capillary refill GI/Abdominal exam: PRESENT: normal bowel sounds, soft Rectal exam: PRESENT: deferred Neurological exam: PRESENT: alert Psychiatric exam: PRESENT: appropriate affect, normal mood Skin exam: PRESENT: dry, intact, warm Results Laboratory Results: 04/16/17 11:43 04/16/17 11:43 04/16/17 04/16/17 11:43 11:43 WBC 8.1 RBC 4.02 Hgb 10.8 L Hct 33.7 L MCV 84 MCH 26.9 L MCHC 32.1 RDW 19.2 H Plt Count 304 Sodium 139.8 Potassium 3.8 Chloride 102 Carbon Dioxide 27 Anion Gap 11 BUN 9 Creatinine 0.70 Est GFR ( Amer) > 60 Est GFR (Non-Af Amer) > 60 Glucose 85 Calcium 8.4 Impressions: Head CT 04/09/17 00:00 IMPRESSION: Chronic atrophy microvascular ischemia. No acute changes. No subdural hematoma. EVIDENCE OF ACUTE STROKE: NO. Abdomen/Pelvis CT 04/09/17 04:00 IMPRESSION: 1. Small-moderate bilateral lower lobar pneumonia/fibrosis. 2. Moderate rectal stool retention. Chest X-Ray 04/09/17 04:00 IMPRESSION: Small left lower hemithoracic pneumonia/atelectasis. Surveillance radiographs recommended within 7-12 weeks. KUB X-Ray 04/10/17 00:00 IMPRESSION: Gaseous distention of multiple bowel loops as noted above. While this may only represent an ileus pattern, the possibility of an underlying obstruction cannot be excluded. Clinical correlation and followup is recommended. Other findings as noted above Abdomen X-Ray 04/11/17 08:00 IMPRESSION: Improved rectal stool but slight progression in generalized gaseous distention throughout the abdomen and pelvis. Assessment & Plan - Diagnosis (1) Pneumonia Qualifiers: Pneumonia type: due to unspecified organism Laterality: bilateral Lung location: lower lobe of lung Qualified Code(s): J18.9 - Pneumonia, unspecified organism Is this a current diagnosis for this admission?: Yes (2) Staphylococcus septicemia Is this a current diagnosis for this admission?: Yes (3) Fecal impaction Is this a current diagnosis for this admission?: Yes (4) Hypokalemia Is this a current diagnosis for this admission?: Yes (5) Diarrhea Qualifiers: Diarrhea type: unspecified type Qualified Code(s): R19.7 - Diarrhea, unspecified Is this a current diagnosis for this admission?: Yes
[2017-04-17] MEDS: CEFEPIME 2 GM/D5W RTU 2 GM/50 ML RTUPB IV SCH ×2 (00:03→11:31)
[2017-04-17] MEDS: CLINDAMYCIN 300 MG/D5W RTU 300 MG/50 ML RTUPB IV SCH ×3 (05:01→22:01)
[2017-04-17] MEDS: LEVOTHYROXINE SODIUM 0.088 MG TABLET PO SCH (05:01)
[2017-04-17] MEDS: POTASSIUM CHLORIDE 20 MEQ/15 ML UDCUP PO SCH (10:17)
[2017-04-17] MEDS: FAMOTIDINE INJ/PF 20 MG/2 ML SDV IV SCH ×2 (10:18→22:03)
[2017-04-17] MEDS: MEMANTINE HCL 10 MG TABLET PO SCH ×2 (10:18→22:02)
[2017-04-17] MEDS: SENNOSIDES/DOCUSATE 8.6-50 MG 1 EACH TABLET PO SCH ×2 (10:18→22:25)
[2017-04-17] MEDS: GUAIFENESIN 600 MG TABLET.SA PO SCH ×2 (10:18→22:03)
[2017-04-17] MEDS: METFORMIN HCL 500 MG TABLET PO SCH ×2 (10:18→22:02)
[2017-04-17] MEDS: ENOXAPARIN SODIUM INJ 40 MG/0.4 ML DISP.SYRIN SUBCUT SCH (10:19)
[2017-04-17] MEDS: LOSARTAN POTASSIUM 50 MG TABLET PO SCH (11:30)
[2017-04-17] MEDS: FOLIC ACID 1 MG TABLET PO SCH (11:30)
[2017-04-17] MEDS: POLYETHYLENE GLYCOL 3350 POWDER 17 GM/1 PACKET PO SCH (11:31)
--- NOTE | 2017-04-17 20:49 | PDOC PROGRESS REPORT ---
Subjective Progress Note for:: 04/17/17 Subjective:: Patient admitted for pneumonia, I spoke with her sister today regarding plan of care and her condition,hopefully she be transferred back to [facility] over the weekend Reason For Visit: PNEUMONIA Physical Exam Vital Signs: Temp Pulse Resp BP Pulse Ox 97.8 F 99 16 160/65 H 90 L 04/17/17 15:38 04/17/17 19:00 04/17/17 15:38 04/17/17 15:38 04/17/17 15:38 Intake & Output 04/16/17 04/17/17 04/18/17 06:59 06:59 06:59 Intake Total 1320 1748 300 Output Total 1175 1325 700 Balance 145 423 -400 Weight 52.2 kg 50 kg General appearance: PRESENT: no acute distress Eye exam: PRESENT: PERRLA Respiratory exam: PRESENT: clear to auscultation sandra Cardiovascular exam: PRESENT: +S1, +S2 GI/Abdominal exam: PRESENT: soft Neurological exam: PRESENT: alert Results Laboratory Results: 04/16/17 11:43 04/16/17 11:43 Impressions: Head CT 04/09/17 00:00 IMPRESSION: Chronic atrophy microvascular ischemia. No acute changes. No subdural hematoma. EVIDENCE OF ACUTE STROKE: NO. Abdomen/Pelvis CT 04/09/17 04:00 IMPRESSION: 1. Small-moderate bilateral lower lobar pneumonia/fibrosis. 2. Moderate rectal stool retention. Chest X-Ray 04/09/17 04:00 IMPRESSION: Small left lower hemithoracic pneumonia/atelectasis. Surveillance radiographs recommended within 7-12 weeks. KUB X-Ray 04/10/17 00:00 IMPRESSION: Gaseous distention of multiple bowel loops as noted above. While this may only represent an ileus pattern, the possibility of an underlying obstruction cannot be excluded. Clinical correlation and followup is recommended. Other findings as noted above Abdomen X-Ray 04/11/17 08:00 IMPRESSION: Improved rectal stool but slight progression in generalized gaseous distention throughout the abdomen and pelvis. Assessment & Plan - Diagnosis (1) Pneumonia Qualifiers: Pneumonia type: due to unspecified organism Laterality: bilateral Lung location: lower lobe of lung Qualified Code(s): J18.9 - Pneumonia, unspecified organism Is this a current diagnosis for this admission?: Yes (2) Staphylococcus septicemia Is this a current diagnosis for this admission?: Yes (3) Fecal impaction Is this a current diagnosis for this admission?: Yes (4) Hypokalemia Is this a current diagnosis for this admission?: Yes (5) Diarrhea Qualifiers: Diarrhea type: unspecified type Qualified Code(s): R19.7 - Diarrhea, unspecified Is this a current diagnosis for this admission?: Yes
[2017-04-17] MEDS: DONEPEZIL HCL 5 MG TABLET PO SCH (22:02)
[2017-04-18] MEDS ORDERED: CEFEPIME 2 GM/D5W RTU 2 GM/50 ML RTUPB IV SCH (05:00)
[2017-04-18] MEDS: CLINDAMYCIN 300 MG/D5W RTU 300 MG/50 ML RTUPB IV SCH (05:40)
[2017-04-18] MEDS: LEVOTHYROXINE SODIUM 0.088 MG TABLET PO SCH (05:41)
[2017-04-18] MEDS: FAMOTIDINE INJ/PF 20 MG/2 ML SDV IV SCH (10:23)
[2017-04-18] MEDS: MEMANTINE HCL 10 MG TABLET PO SCH (10:23)
[2017-04-18] MEDS: GUAIFENESIN 600 MG TABLET.SA PO SCH (10:23)
[2017-04-18] MEDS: METFORMIN HCL 500 MG TABLET PO SCH (10:23)
[2017-04-18] MEDS: POTASSIUM CHLORIDE 20 MEQ/15 ML UDCUP PO SCH (10:23)
[2017-04-18] MEDS: ENOXAPARIN SODIUM INJ 40 MG/0.4 ML DISP.SYRIN SUBCUT SCH (10:24)
[2017-04-18] MEDS: SENNOSIDES/DOCUSATE 8.6-50 MG 1 EACH TABLET PO SCH (10:30)
[2017-04-18] MEDS: POLYETHYLENE GLYCOL 3350 POWDER 17 GM/1 PACKET PO SCH (11:27)
[2017-04-18] MEDS: LOSARTAN POTASSIUM 50 MG TABLET PO SCH (12:11)
[2017-04-18] MEDS: FOLIC ACID 1 MG TABLET PO SCH (12:11)
--- NOTE | 2017-04-18 13:04 | PDOC TRANSFER SUMMARY ---
General - Admit/Disc Date/PCP Admission Date/Primary Care Provider: 04/09/17 06:03 FRANCISCO RUANO MD Discharge Date: 04/18/17 - Discharge Diagnosis (1) Pneumonia Is this a current diagnosis for this admission?: Yes (2) Staphylococcus septicemia Is this a current diagnosis for this admission?: Yes (3) Fecal impaction Is this a current diagnosis for this admission?: Yes (4) Hypokalemia Is this a current diagnosis for this admission?: Yes (5) Diarrhea Is this a current diagnosis for this admission?: Yes (6) Alzheimer disease Is this a current diagnosis for this admission?: Yes - Additional Information Discharge Diet: Diabetic Discharge Activity: Activity As Tolerated Home Medications: RX: Donepezil HCl [Aricept] 10 mg PO QHS 12/14/14 RX: Folic Acid [Folvite 1 mg Tablet] 1 mg PO DAILY 12/14/14 RX: Insulin Aspart [Novolog Insulin (Aspart) 100 unit/mL] 0 unit SUBCUT .SLD SCALE 12/14/14 RX: Memantine HCl [Namenda 10 mg Tablet] 10 mg PO Q12 12/14/14 RX: Metformin HCl [Glucophage 500 mg Tablet] 500 mg PO Q12 12/14/14 RX: Sennosides/Docusate Sodium [Senna-S Tablet] 1 tab PO Q12 12/14/14 RX: Losartan Potassium 100 mg PO DAILY #30 tablet 02/09/17 RX: Acetaminophen [Tylenol 325 mg Tablet] 650 mg PO Q6HP PRN 04/09/17 RX: Levetiracetam [Keppra 500 mg Tablet] 500 mg PO Q12 04/09/17 RX: Levothyroxine Sodium [Synthroid 0.088 mg Tablet] 0.088 mg PO DAILY 04/09/17 Levofloxacin [Levaquin 750 mg Tablet] 750 mg PO DAILY #10 tab 04/18/17 History of Present Illness Admission Date/PCP: 04/09/17 06:03 FRANCISCO RUANO MD History of Present Illness: Patient presented to the emergency room from the long term for evaluation of shortness of breath. In the emergency room she was found to have a distended abdomen, a CAT scan of the abdomen and pelvis was done for evaluation of the distended abdomen, the CAT scan showed airspace opacity of both lower lobes left more than right also found was discharged colonic distention due to fecal impaction. She was treated with IV antibiotic for pneumonia, she was given an enema for the fecal impaction, this resulted in hypokalemia, this was replaced. Patient is not stable enough to be transferred back to long term for continuity of care. Hospital Course Hospital Course: Patient was admitted for pneumonia and fecal impaction, she was treated with IV antibiotic and fecal impaction was treated with enema. She has baseline dementia. She is stable enough to be transferred back to the long-term home for continuity of care, she will continue p.o. antibiotic Levaquin, Aricept should be held for 10 days for the period that she would be on levaquin. Physical Exam Vital Signs: Temp Pulse Resp BP Pulse Ox 98.1 F 93 22 H 152/50 H 97 04/17/17 20:37 04/18/17 07:00 04/17/17 20:37 04/17/17 20:37 04/17/17 20:37 Intake & Output 04/17/17 04/18/17 04/19/17 06:59 06:59 06:59 Intake Total 1748 300 Output Total 1325 700 Balance 423 -400 Weight 50 kg General appearance: PRESENT: no acute distress Head exam: PRESENT: atraumatic, normocephalic Eye exam: PRESENT: PERRLA Ear exam: PRESENT: normal external ear exam Mouth exam: PRESENT: moist, tongue midline Respiratory exam: PRESENT: clear to auscultation sandra Cardiovascular exam: PRESENT: +S1, +S2 Pulses: PRESENT: normal dorsalis pedis pul Vascular exam: PRESENT: normal capillary refill GI/Abdominal exam: PRESENT: soft Rectal exam: PRESENT: deferred Neurological exam: PRESENT: alert Psychiatric exam: PRESENT: appropriate affect, normal mood Skin exam: PRESENT: dry, intact, warm Results Laboratory Results: 04/16/17 11:43 04/16/17 11:43 Impressions: Head CT 04/09/17 00:00 IMPRESSION: Chronic atrophy microvascular ischemia. No acute changes. No subdural hematoma. EVIDENCE OF ACUTE STROKE: NO. Abdomen/Pelvis CT 04/09/17 04:00 IMPRESSION: 1. Small-moderate bilateral lower lobar pneumonia/fibrosis. 2. Moderate rectal stool retention. Chest X-Ray 04/09/17 04:00 IMPRESSION: Small left lower hemithoracic pneumonia/atelectasis. Surveillance radiographs recommended within 7-12 weeks. KUB X-Ray 04/10/17 00:00 IMPRESSION: Gaseous distention of multiple bowel loops as noted above. While this may only represent an ileus pattern, the possibility of an underlying obstruction cannot be excluded. Clinical correlation and followup is recommended. Other findings as noted above Abdomen X-Ray 04/11/17 08:00 IMPRESSION: Improved rectal stool but slight progression in generalized gaseous distention throughout the abdomen and pelvis.
[2017-04-18 16:03] VITALS: BP 154/73
== END 2017-04-18 16:50 | DRG 871 ==
LOC: ER 03:54 → EH 06:03 → 3W 07:00
PROVIDERS: ADMIT Family Medicine; ATTEND Internal Medicine
DX: A41.1 Sepsis due to other specified staphylococcus (principal); J18.9 Pneumonia, unspecified organism; E87.6 Hypokalemia; E78.5 Hyperlipidemia, unspecified; I10 Essential (primary) hypertension; K56.41 Fecal impaction; E11.9 Type 2 diabetes mellitus without complications; G30.9 Alzheimer's disease, unspecified; F02.80 Dementia in other diseases classified elsewhere, unspecified severity, without behavioral disturbance, psychotic disturbance, mood disturbance, and anxiety; M19.90 Unspecified osteoarthritis, unspecified site; Z79.84 Long term (current) use of oral hypoglycemic drugs; Z79.4 Long term (current) use of insulin; Z79.899 Other long term (current) drug therapy; Z86.79 Personal history of other diseases of the circulatory system
CPT/HCPCS: 36415; 70450; 71010; 74000; 74020; 74177; 80048; 80053; 81001; 82803; 82962; 83605; 83690; 83735; 84484; 85025; 85027; 87040; 87077; 87086; 87186; 87493; 93005; 93010; 94640; 96365; 96367; 99285; J0692; J1650; J1815; J2543; J3370; J3480; J3490; J7030; J7620; S0028

== ENCOUNTER 2018-06-29 22:17 | Inpatient (IN) | payer MEDICARE, BC, MEDICAID ==
--- NOTE | 2018-06-29 23:07 | RADIOLOGY REPORT (SQ) ---
CLINICAL HISTORY: fever COMPARISON: None. TECHNIQUE: XR CHEST 1 VIEW 06/29/2018 10:23 PM [employer] FINDINGS: Cardiac silhouette is normal in size. Lungs are hyperinflated. There is no focal consolidation. There are extensive surgical clips in the right axillary region. Stomach is air-filled and distended. There is no pleural effusion. There is no pneumothorax. There are no acute osseous findings. IMPRESSION: No definite pneumonia.
[2018-06-29 23:31] LABS: VENOUS BLOOD BASE EXCESS 0.7 mmol/L; VENOUS BLOOD HCO3 27.6 mmol/L (20-32); VENOUS BLOOD PH 7.33 (7.30-7.42)
[2018-06-29] MEDS ORDERED: DEXTROSE 50%-WATER 25 GM/50 ML DISP.SYRIN IV ONE (23:31)
[2018-06-29 23:35] LABS: HEMATOCRIT 43.2 % (36.0-47.0); HEMOGLOBIN 13.5 g/dL (12.0-15.5); MEAN CORPUSCULAR HEMOGLOBIN 27.4 pg (27.0-33.4); MEAN CORPUSCULAR HGB CONC 31.1 g/dL (32.0-36.0); MEAN CORPUSCULAR VOLUME 88 fl (80-97); PLATELET COUNT 402 10^3/uL (150-450); RED BLOOD COUNT 4.91 10^6/uL (3.72-5.28); RED CELL DISTRIBUTION WIDTH 16.6 % (11.5-14.0); WHITE BLOOD COUNT 20.2 10^3/uL (4.0-10.5)
[2018-06-29 23:37] LABS: INTERNATIONAL RATION (INR) 1.07; PROTHROMBIN TIME 14.5 SEC (11.4-15.4)
[2018-06-29 23:48] LABS: ALANINE AMINOTRANSFERASE 20 U/L (9-52); ALBUMIN 3.8 g/dL (3.5-5.0); ALKALINE PHOSPHATASE 122 U/L (38-126); ANION GAP 13 (5-19); ASPARTATE AMINO TRANSFERASE 24 U/L (14-36); BILIRUBIN,DIRECT 0.2 mg/dL (0.0-0.4); BILIRUBIN,TOTAL 0.3 mg/dL (0.2-1.3); CALCIUM 8.9 mg/dL (8.4-10.2); CARBON DIOXIDE 25 mmol/L (22-30); CHLORIDE 123 mmol/L (98-107); GLUCOSE 182 mg/dL (75-110); SODIUM 160.9 mmol/L (137-145)
[2018-06-29 23:54] LABS: ABSOLUTE MONOCYTES # (MANUAL) 0.4 10^3/uL (0.1-1.4); BASOPHILS % (MANUAL) 0 % (0-2); EOSINOPHILS % (MANUAL) 4 % (0-6); LYMPHOCYTES % (MANUAL) 10 % (13-45); MONOCYTES % (MANUAL) 2 % (3-13); SEGMENTED NEUTROPHILS % (MAN) 84 % (42-78); TOTAL CELLS COUNTED 100
[2018-06-29 23:55] LABS: ANISOCYTOSIS 1+; PLATELET COMMENT ADEQUATE
[2018-06-30] LABS: BLOOD UREA NITROGEN 123 mg/dL (7-20); POTASSIUM 3.5 mmol/L (3.6-5.0)
[2018-06-30] MEDS ORDERED: DEXTROSE 5%-1/2 NORMAL SALINE 1,000 ML IV ONE (00:59)
--- NOTE | 2018-06-30 01:24 | ER Document Report ---
ED General - General Chief Complaint: Abnormal Lab Results Stated Complaint: ABNORMAL LAB WORK Time Seen by Provider: 06/29/18 22:31 Primary Care Provider: FRANCISCO RUANO MD [Primary Care Provider] - Follow up as needed TRAVEL OUTSIDE OF THE [place] IN LAST 30 DAYS: No - HPI Notes: Patient sent into the emergency department via EMS. She cannot offer me any history. What I am told is that she had an elevated potassium on her blood work this morning. She has had a decreased level of responsiveness per assisted staff. - Related Data Allergies/Adverse Reactions: No Known Allergies Allergy (Verified 02/04/17 10:40) Past Medical History - General Information source: Emergency Med Personnel, Outside Facility Records Cannot obtain history due to: Dementia - Social History Smoking Status: Unknown if Ever Smoked Family History: Reviewed & Not Pertinent Patient has suicidal ideation: No Patient has homicidal ideation: No - Past Medical History Cardiac Medical History: Reports: Hx Hypercholesterolemia, Hx Hypertension Denies: Hx Coronary Artery Disease, Hx Heart Attack Pulmonary Medical History: Reports: Hx Pneumonia Denies: Hx Asthma, Hx Bronchitis, Hx COPD Neurological Medical History: Denies: Hx Cerebrovascular Accident, Hx Seizures Endocrine Medical History: Reports: Hx Diabetes Mellitus Type 2 Renal/ Medical History: Denies: Hx Peritoneal Dialysis Musculoskeletal Medical History: Reports Hx Arthritis Psychiatric Medical History: Reports: Hx Dementia Past Surgical History: Reports: Hx Hysterectomy - Immunizations Hx Diphtheria, Pertussis, Tetanus Vaccination: Yes Hx Pneumococcal Vaccination: 10/16/13 Review of Systems - Review of Systems -: Yes ROS unobtainable due to patient's medical condition Physical Exam - Vital signs Vitals: Resp 11 L 06/29/18 22:23 Interpretation: Hypotensive Notes: Temperature 97 - Notes Notes: Cachectic appearing elderly female, no acute distress. Head is normocephalic and atraumatic. Pupils equal round reactive to light. Oral mucosa slightly dry. Heart is regular. Lungs show diminished breath sounds but no wheezes, rales, rhonchi. Abdomen is soft and nontender. Diminished bowel sounds noted. 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 Sensation is intact. Patient moves all 4 extremity spontaneously. She will answer limited questions with yes and no answers. Course - Re-evaluation Re-evalutation: 06/30/18 01:21 Patient presents to the emergency department for evaluation. We did have some difficulty obtaining IV access on this patient. First fingerstick found her to be markedly hypoglycemic. I was unsure as to her current level of consciousness and as to how far away from her baseline this was. Decision was to administer dextrose. Patient tolerated this well. Laboratory investigations did not reveal a significant hyperkalemia as reported this morning. What was noted was severe dehydration, uremia, and acute renal failure. Straight cath was placed but no urine was obtained. Chest x-ray revealed no clear obvious process. Patient was given D5 half-normal. She is a DNR, this was verified with assisted paperwork. We will admit her to medical floor for further care. 06/30/18 01:22 - Vital Signs Vital signs: Temp Pulse Resp BP Pulse Ox 97.0 F 17 111/28 L 99 06/29/18 23:28 06/30/18 01:01 06/30/18 01:00 06/30/18 01:01 - Laboratory Result Diagrams: 06/29/18 23:13 06/29/18 23:13 Laboratory results interpreted by me: 06/29/18 06/29/18 06/29/18 23:13 23:13 23:13 WBC 20.2 H MCHC 31.1 L RDW 16.6 H Seg Neuts % (Manual) 84 H Lymphocytes % (Manual) 10 L Monocytes % (Manual) 2 L Abs Neuts (Manual) 17.0 H Absolute Eos (Manual) 0.8 H Sodium 160.9 H Potassium 3.5 L D Chloride 123 H BUN 123 H Creatinine 2.47 H Est GFR ( Amer) 23 L Est GFR (Non-Af Amer) 19 L Glucose 182 H POC Glucose Lactic Acid 2.4 H 06/29/18 23:27 WBC MCHC RDW Seg Neuts % (Manual) Lymphocytes % (Manual) Monocytes % (Manual) Abs Neuts (Manual) Absolute Eos (Manual) Sodium Potassium Chloride BUN Creatinine Est GFR ( Amer) Est GFR (Non-Af Amer) Glucose POC Glucose 42 L Lactic Acid - EKG Interpretation by Me Additional EKG results interpreted by me: 06/30/18 01:25 Sinus mechanism with a rate of 89 bpm. Left axis deviation. No acute ST changes concerning for ischemia or infarction. Discharge - Discharge Clinical Impression: Hypernatremia, Dehydration, Acute renal failure Condition: Poor Disposition: ADMITTED INPATIENT Admitting Provider: [facility] Admitted: Medical Floor Referrals: FRANCISCO RUANO MD [Primary Care Provider] - Follow up as needed
[2018-06-30] MEDS ORDERED: DEXTROSE 5%-1/2 NORMAL SALINE 1,000 ML IV PRN (03:04)
[2018-06-30] MEDS ORDERED: DEXTROSE 50%-WATER 25 GM/50 ML DISP.SYRIN IV PRN ×2 (03:12)
[2018-06-30] MEDS ORDERED: DEXTROSE 40% GEL 15 GM TUBE PO PRN ×2 (03:12)
[2018-06-30] MEDS ORDERED: GLUCAGON,HUMAN RECOMB 1 MG INJ IM PRN (03:12)
[2018-06-30] MEDS ORDERED: AMPICILLIN SOD/SULBACTAM 3 GM VIAL IV PRN (03:23)
[2018-06-30] MEDS ORDERED: AMPICILLIN SODIUM/SULBACTAM NA 3 GM in NORMAL SALINE 100 ML IV ONE (04:00)
[2018-06-30 05:41] LABS: INTERNATIONAL RATION (INR) 1.06; PROTHROMBIN TIME 14.3 SEC (11.4-15.4)
[2018-06-30 05:42] LABS: PARTIAL THROMBOPLASTIN TIME 35.9 SEC (23.5-35.8)
[2018-06-30 06:01] LABS: LIPASE 204.9 U/L (23-300); PHOSPHORUS 3.4 mg/dL (2.5-4.5)
[2018-06-30 06:15] LABS: CREATINE KINASE MB 2.6 ng/mL (<4.55); TROPONIN I 0.014 ng/mL
[2018-06-30 06:19] LABS: FREE T4 (FREE THYROXINE) 1.95 ng/dL (0.78-2.19)
[2018-06-30 06:32] LABS: THYROID STIMULATING HORMONE 1.49 uIU/mL (0.47-4.68)
[2018-06-30] MEDS: HEPARIN SOD (PORCINE) 5,000 UNIT/ML 1 ML SYRINGE SUBCUT SCH ×3 (06:38→22:48)
[2018-06-30 06:54] LABS: ARTERIAL BLOOD BASE EXCESS -3.1 mmol/L; ARTERIAL BLOOD FIO2 ROOM AIR; ARTERIAL BLOOD H2CO3 1.18 mmol/L (1.05-1.35); ARTERIAL BLOOD HCO3 21.9 mmol/L (20-24); ARTERIAL BLOOD O2 SATURATION 95.7 % (94-98); ARTERIAL BLOOD PCO2 39.3 mmHg (35-45); ARTERIAL BLOOD PH 7.36 (7.35-7.45); ARTERIAL BLOOD PO2 81.2 mmHg (80-100); ARTERIAL BLOOD TOTAL CO2 23.1 mmol/L (21-25)
--- NOTE | 2018-06-30 07:32 | EKG REPORT ---
SEVERITY:- ABNORMAL ECG - SINUS RHYTHM RIGHT ATRIAL ABNORMALITY INFERIOR INFARCT, AGE INDETERMINATE PROLONGED QT INTERVAL : Confirmed by: Renata Yates MD 30-Jun-2018 07:31:53
[2018-06-30] MEDS ORDERED: AMPICILLIN SODIUM/SULBACTAM NA 3 GM in NORMAL SALINE 100 ML IV SCH ×4 (09:00)
[2018-06-30] MEDS: INSULIN LISPRO 100 UNIT/ML 3 ML VIAL SUBCUT SCH ×4 (09:49→22:48)
[2018-06-30 12:52] LABS: TROPONIN I < 0.012 ng/mL
[2018-06-30] MEDS: COLLAGENASE CLOSTRIDIUM HIST. OINT 30 GM TOP SCH (14:47)
[2018-06-30 14:59] LABS: AMORPHOUS SEDIMENT,URINE TRACE /HPF; APPEARANCE,URINE SLIGHTLY-CLOUDY; BILIRUBIN,URINE NEGATIVE (NEGATIVE); COLOR,URINE YELLOW; GLUCOSE, URINE >=500 mg/dL (NEGATIVE); KETONES,URINE NEGATIVE (NEGATIVE); LEUKOCYTE ESTERASE,URINE NEGATIVE (NEGATIVE); NITRITE,URINE POSITIVE (NEGATIVE); PROTEIN,URINE NEGATIVE (NEGATIVE); URINE SPECIFIC GRAVITY 1.018; UROBILINOGEN,URINE NEGATIVE mg/dL (<2.0)
[2018-06-30 15:10] LABS: URINE AMPHETAMINES SCREEN NEGATIVE; URINE BARBITURATES SCREEN NEGATIVE; URINE BENZODIAZEPINES SCREEN NEGATIVE; URINE COCAINE SCREEN NEGATIVE; URINE MARIJUANA (THC) SCREEN NEGATIVE; URINE METHADONE SCREEN NEGATIVE; URINE PHENCYCLIDINE SCREEN NEGATIVE
[2018-06-30 15:54] LABS: ALANINE AMINOTRANSFERASE 28 U/L (9-52); ALKALINE PHOSPHATASE 101 U/L (38-126); ANION GAP 15 (5-19); ASPARTATE AMINO TRANSFERASE 18 U/L (14-36); BILIRUBIN,DIRECT 0.2 mg/dL (0.0-0.4); BILIRUBIN,TOTAL 0.3 mg/dL (0.2-1.3); CALCIUM 8.3 mg/dL (8.4-10.2); CARBON DIOXIDE 23 mmol/L (22-30); CHLORIDE 121 mmol/L (98-107); GLUCOSE 313 mg/dL (75-110); SODIUM 158.7 mmol/L (137-145); TOTAL PROTEIN 5.8 g/dL (6.3-8.2)
[2018-06-30 16:11] LABS: BLOOD UREA NITROGEN 93 mg/dL (7-20)
[2018-06-30 16:12] LABS: POTASSIUM 2.8 mmol/L (3.6-5.0)
--- NOTE | 2018-06-30 16:24 | PDOC H&P ---
History of Present Illness Admission Date/PCP: 06/30/18 01:57 FRANCISCO RUANO MD History of Present Illness: ZACK PAZ is a 82 year old female, she has advanced dementia, chronic decubitus ulcer affecting the sacrum, the left heel, the left knee, history of type 2 diabetes mellitus, she is resident of the longterm [facility], she had routine blood work, was found to have severe hypernatremia, elevated serum creatinine that suggest acute kidney injury,, I called the longterm to refer patient to the emergency room for further evaluation because of the severe hypernatremia and other electrolyte abnormalities. In the emergency room she was found to have severe leukocytosis, the white blood cell count was 20,000, the chest x-ray did not demonstrate any infiltrate to suggest pneumonia, she has stage I sacral decubitus ulcer, there is an ulcer in the sacrum, it is mota perficial, the fat layer is not exposed, it measures about 1 cm in diameter consistent with stage I, she has other ulcer in the left heel that is consistent with stage II with exposure of the underlying fat layer it looks slightly infected I am not sure this ulcer is the etiology of the severe leukocytosis that she has, there is no urinalysis at the moment, she obviously met criteria for sepsis with altered mental status, leukocytosis, acute kidney injury no history could be obtained from this patient she is obtunded. [facility] I had a long discussion with patient's family about prognosis, hypernatremia is a poor prognostic sign, is a reflection of severe brain disease. The thirst mechanism is a highly developed system in response to elevated plasma osmolality, it is not normal to maintain hypernatremia with a normal brain formation unless you have no access to free water. No history could be obtained from this patient patient is a DNR status Past Medical History Cardiac Medical History: Reports: Hyperlipidema, Hypertension Pulmonary Medical History: Reports: Pneumonia Endocrine Medical History: Reports: Diabetes Mellitus Type 2 Musculoskeltal Medical History: Reports: Arthritis Psychiatric Medical History: Reports: Dementia Hematology: Reports: Anemia Past Surgical History Past Surgical History: Reports: Hysterectomy Social History Smoking Status: Unknown if Ever Smoked Frequency of Alcohol Use: None Hx Recreational Drug Use: No - Advance Directive Resuscitation Status: Do Not Resuscitate Family History Family History: Reviewed & Not Pertinent Parental Family History Reviewed: Yes Children Family History Reviewed: Yes Sibling(s) Family History Reviewed.: Yes Medication/Allergy Home Medications: Folic Acid [Folvite 1 mg Tablet] 1 mg PO DAILY 12/14/14 Memantine HCl [Namenda 10 mg Tablet] 10 mg PO Q12 12/14/14 Metformin HCl [Glucophage 500 mg Tablet] 500 mg PO Q12 12/14/14 Sennosides/Docusate Sodium [Senna-S Tablet] 1 tab PO Q12 12/14/14 Losartan Potassium 100 mg PO DAILY #30 tablet 02/09/17 Acetaminophen [Tylenol 325 mg Tablet] 650 mg PO Q6HP PRN 04/09/17 Levetiracetam [Keppra 500 mg Tablet] 500 mg PO Q12 04/09/17 Insulin Lispro [Humalog Insulin 100 Unit/1 ml 3 ml Vial] 0 unit SUBCUT .SLD SCALE 06/30/18 Levothyroxine Sodium [Synthroid 0.1 mg Tablet] 0.1 mg PO DAILY 06/30/18 Mirtazapine [Remeron] 7.5 mg PO DAILY 06/30/18 Allergies/Adverse Reactions: No Known Allergies Allergy (Verified 02/04/17 10:40) Review of Systems ROS unobtainable: Due to mental status Physical Exam Vital Signs: Temp Pulse Resp BP Pulse Ox 97.5 F 91 13 125/23 L 90 L 06/30/18 11:00 06/30/18 11:00 06/30/18 11:00 06/30/18 12:01 06/30/18 11:00 Intake & Output 06/29/18 06/30/18 07/01/18 06:59 06:59 06:59 Intake Total 1100 Balance 1100 Weight 44.707 kg 44.707 kg Head exam: PRESENT: other - Patient is an elderly female chronically debilitated Eye exam: PRESENT: conjunctiva pale Mouth exam: PRESENT: dry mucosa Respiratory exam: PRESENT: clear to auscultation sandra, other - There is no respiratory distress, no chest wall tenderness, unlabored breathing Cardiovascular exam: PRESENT: +S1, +S2 Vascular exam: PRESENT: other - There is peripheral cyanosis especially in the right hand GI/Abdominal exam: PRESENT: soft Extremities exam: PRESENT: other - The lower extremity is contracted, there is stage I ulcer in the sacrum, superficial ulcer the fat layer is not exposed noninfected, in the left heel there is stage II ulcer is deep in the knee there is a small pressure ulcer Neurological exam: PRESENT: other - Patient is obtunded but arousable Results Laboratory Results: 06/29/18 06/29/18 06/29/18 23:13 23:13 23:13 WBC 20.2 H RBC 4.91 Hgb 13.5 Hct 43.2 MCV 88 MCH 27.4 MCHC 31.1 L RDW 16.6 H Plt Count 402 Seg Neutrophils % Not Reportable Lymphocytes % Not Reportable Monocytes % Not Reportable Eosinophils % Not Reportable Basophils % Not Reportable Absolute Neutrophils Not Reportable Absolute Lymphocytes Not Reportable Absolute Monocytes Not Reportable Absolute Eosinophils Not Reportable Absolute Basophils Not Reportable Carbonic Acid HCO3/H2CO3 Ratio ABG pH ABG pCO2 ABG pO2 ABG HCO3 ABG O2 Saturation ABG Base Excess VBG pH VBG pCO2 VBG HCO3 VBG Base Excess FiO2 Sodium 160.9 H Potassium 3.5 L D Chloride 123 H Carbon Dioxide 25 Anion Gap 13 BUN 123 H Creatinine 2.47 H Est GFR ( Amer) 23 L Est GFR (Non-Af Amer) 19 L Glucose 182 H Lactic Acid 2.4 H Calcium 8.9 Phosphorus Magnesium Total Bilirubin 0.3 AST 24 ALT 20 Alkaline Phosphatase 122 Ammonia Total Protein 7.0 Albumin 3.8 Amylase Lipase TSH Free T4 Urine Color Urine Appearance Urine pH Ur Specific [place] Urine Protein Urine Glucose (UA) Urine Ketones Urine Blood Urine Nitrite Ur Leukocyte Esterase Urine WBC (Auto) Urine RBC (Auto) 06/29/18 06/30/18 06/30/18 23:13 05:10 05:10 WBC RBC Hgb Hct MCV MCH MCHC RDW Plt Count Seg Neutrophils % Lymphocytes % Monocytes % Eosinophils % Basophils % Absolute Neutrophils Absolute Lymphocytes Absolute Monocytes Absolute Eosinophils Absolute Basophils Carbonic Acid HCO3/H2CO3 Ratio ABG pH ABG pCO2 ABG pO2 ABG HCO3 ABG O2 Saturation ABG Base Excess VBG pH 7.33 VBG pCO2 53.0 VBG HCO3 27.6 VBG Base Excess 0.7 FiO2 Sodium Potassium Chloride Carbon Dioxide Anion Gap BUN Creatinine Est GFR ( Amer) Est GFR (Non-Af Amer) Glucose Lactic Acid Calcium Phosphorus 3.4 Magnesium 2.7 H Total Bilirubin AST ALT Alkaline Phosphatase Ammonia Total Protein Albumin Amylase 105 Lipase 204.9 TSH 1.49 Free T4 1.95 Urine Color Urine Appearance Urine pH Ur Specific [place] Urine Protein Urine Glucose (UA) Urine Ketones Urine Blood Urine Nitrite Ur Leukocyte Esterase Urine WBC (Auto) Urine RBC (Auto) 06/30/18 06/30/18 06/30/18 05:15 05:15 06:40 WBC RBC Hgb Hct MCV MCH MCHC RDW Plt Count Seg Neutrophils % Lymphocytes % Monocytes % Eosinophils % Basophils % Absolute Neutrophils Absolute Lymphocytes Absolute Monocytes Absolute Eosinophils Absolute Basophils Carbonic Acid 1.18 HCO3/H2CO3 Ratio 18:1 ABG pH 7.36 ABG pCO2 39.3 ABG pO2 81.2 ABG HCO3 21.9 ABG O2 Saturation 95.7 ABG Base Excess -3.1 VBG pH VBG pCO2 VBG HCO3 VBG Base Excess FiO2 ROOM AIR Sodium Potassium Chloride Carbon Dioxide Anion Gap BUN Creatinine Est GFR ( Amer) Est GFR (Non-Af Amer) Glucose Lactic Acid 4.6 H Calcium Phosphorus Magnesium Total Bilirubin AST ALT Alkaline Phosphatase Ammonia < 8.7 L Total Protein Albumin Amylase Lipase TSH Free T4 Urine Color Urine Appearance Urine pH Ur Specific [place] Urine Protein Urine Glucose (UA) Urine Ketones Urine Blood Urine Nitrite Ur Leukocyte Esterase Urine WBC (Auto) Urine RBC (Auto) 06/30/18 14:17 WBC RBC Hgb Hct MCV MCH MCHC RDW Plt Count Seg Neutrophils % Lymphocytes % Monocytes % Eosinophils % Basophils % Absolute Neutrophils Absolute Lymphocytes Absolute Monocytes Absolute Eosinophils Absolute Basophils Carbonic Acid HCO3/H2CO3 Ratio ABG pH ABG pCO2 ABG pO2 ABG HCO3 ABG O2 Saturation ABG Base Excess VBG pH VBG pCO2 VBG HCO3 VBG Base Excess FiO2 Sodium Potassium Chloride Carbon Dioxide Anion Gap BUN Creatinine Est GFR ( Amer) Est GFR (Non-Af Amer) Glucose Lactic Acid Calcium Phosphorus Magnesium Total Bilirubin AST ALT Alkaline Phosphatase Ammonia Total Protein Albumin Amylase Lipase TSH Free T4 Urine Color YELLOW Urine Appearance SLIGHTLY-CLOUDY Urine pH 5.0 Ur Specific [place] 1.018 Urine Protein NEGATIVE Urine Glucose (UA) >=500 H Urine Ketones NEGATIVE Urine Blood MODERATE H Urine Nitrite POSITIVE H Ur Leukocyte Esterase NEGATIVE Urine WBC (Auto) 5 Urine RBC (Auto) 0 06/30/18 06/30/18 06/30/18 05:10 05:10 11:32 Creatine Kinase 228 H 187 H CK-MB (CK-2) 2.60 Troponin I 0.014 NT-Pro-B Natriuret Pep 310 06/30/18 11:32 Creatine Kinase CK-MB (CK-2) 2.30 Troponin I < 0.012 NT-Pro-B Natriuret Pep Impressions: Chest X-Ray 06/29/18 22:23 IMPRESSION: No definite pneumonia. Assessment & Plan - Diagnosis (1) Sepsis Qualifiers: Sepsis type: sepsis due to unspecified organism Qualified Code(s): A41.9 - Sepsis, unspecified organism Is this a current diagnosis for this admission?: Yes Plan: The source of the sepsis is not clear at the moment, she meets for sepsis criteria, she will empirically be treated with Unasyn this will treat a potential pathogen from the heel ulcers, she has no pneumonia, there is no UA collected yet, UTI is also possible in this patient (2) Decubitus ulcer of sacral region, stage 1 Is this a current diagnosis for this admission?: Yes (3) Decubitus ulcer of left heel, stage 2 Is this a current diagnosis for this admission?: Yes Plan: Consultation will be obtained from the surgeon (4) Metabolic encephalopathy Is this a current diagnosis for this admission?: Yes (5) Hypernatremia Is this a current diagnosis for this admission?: Yes Plan: This is a poor prognostic sign, start 5% dextrose (6) Type 2 diabetes mellitus Qualifiers: 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
[2018-06-30] MEDS: DEXTROSE 5%-WATER 1000 ML 1,000 ML IV PRN (17:43)
--- NOTE | 2018-06-30 17:56 | PDOC CONSULTATION ---
Consultation Consult Date: 06/30/18 History of Present Illness Admission Date/PCP: 06/30/18 01:57 FRANCISCO RUANO MD History of Present Illness: ZACK PAZ is a 82 year old female she has advanced dementia, chronic decubitus ulcer affecting the sacrum, the left heel, the left knee, history of type 2 diabetes mellitus, she is resident of the residential at [place] [facility], she had routine blood work, was found to have severe hyponatremia, elevated serum creatinine that suggest acute kidney injury she has been admitted for rx of hyponatremia and elevated wbc and found to have a number of decubuti and specifically surgery asked to eval and rx the left heel and left knee she also has a superficial stage 1 decubti on her sacrum. Past Medical History Cardiac Medical History: Reports: Hyperlipidema, Hypertension Denies: Coronary Artery Disease, Myocardial Infarction Pulmonary Medical History: Reports: Pneumonia Denies: Asthma, Bronchitis, Chronic Obstructive Pulmonary Disease (COPD) Neurological Medical History: Denies: Seizures Endocrine Medical History: Reports: Diabetes Mellitus Type 2 Musculoskeltal Medical History: Reports: Arthritis Psychiatric Medical History: Reports: Dementia Hematology: Reports: Anemia Past Surgical History Past Surgical History: Reports: Hysterectomy Social History Smoking Status: Unknown if Ever Smoked Frequency of Alcohol Use: None Hx Recreational Drug Use: No - Advance Directive Resuscitation Status: Do Not Resuscitate Family History Family History: Reviewed & Not Pertinent Parental Family History Reviewed: No Children Family History Reviewed: No Sibling(s) Family History Reviewed.: No Medication/Allergy Home Medications: Folic Acid [Folvite 1 mg Tablet] 1 mg PO DAILY 12/14/14 Memantine HCl [Namenda 10 mg Tablet] 10 mg PO Q12 12/14/14 Metformin HCl [Glucophage 500 mg Tablet] 500 mg PO Q12 12/14/14 Sennosides/Docusate Sodium [Senna-S Tablet] 1 tab PO Q12 12/14/14 Losartan Potassium 100 mg PO DAILY #30 tablet 02/09/17 Acetaminophen [Tylenol 325 mg Tablet] 650 mg PO Q6HP PRN 04/09/17 Levetiracetam [Keppra 500 mg Tablet] 500 mg PO Q12 04/09/17 Insulin Lispro [Humalog Insulin 100 Unit/1 ml 3 ml Vial] 0 unit SUBCUT .SLD SCALE 06/30/18 Levothyroxine Sodium [Synthroid 0.1 mg Tablet] 0.1 mg PO DAILY 06/30/18 Mirtazapine [Remeron] 7.5 mg PO DAILY 06/30/18 Allergies/Adverse Reactions: No Known Allergies Allergy (Verified 02/04/17 10:40) Physical Exam Vital Signs: Temp Pulse Resp BP Pulse Ox 97.5 F 91 13 125/23 L 90 L 06/30/18 11:00 06/30/18 11:00 06/30/18 11:00 06/30/18 12:01 06/30/18 11:00 Intake & Output 06/29/18 06/30/18 07/01/18 06:59 06:59 06:59 Intake Total 1100 Balance 1100 Weight 44.707 kg 44.707 kg General appearance: PRESENT: no acute distress - pt has severe dementia, is b edridden and hx obtained from sister. Eye exam: PRESENT: conjunctiva pink Neck exam: PRESENT: full ROM Respiratory exam: PRESENT: clear to auscultation sandra Cardiovascular exam: PRESENT: RRR Pulses: PRESENT: normal radial pulses, normal femoral pulses Vascular exam: PRESENT: normal capillary refill GI/Abdominal exam: PRESENT: soft Rectal exam: PRESENT: deferred Skin exam: PRESENT: other - on the left lateral heel there is a 3cm circular stage 2 decubitis ulcer down to fat with centralo area that may extend to calcaneous bone extends to fat tissue , no obvious purulent drainage, no cellulitis, rt knee with superficial stage 1-2 ulcer approx 2cm diameter Results Laboratory Results: 06/30/18 05:10 06/30/18 11:32 06/29/18 06/29/18 06/29/18 23:13 23:13 23:13 WBC 20.2 H RBC 4.91 Hgb 13.5 Hct 43.2 MCV 88 MCH 27.4 MCHC 31.1 L RDW 16.6 H Plt Count 402 Seg Neutrophils % Not Reportable Lymphocytes % Not Reportable Monocytes % Not Reportable Eosinophils % Not Reportable Basophils % Not Reportable Absolute Neutrophils Not Reportable Absolute Lymphocytes Not Reportable Absolute Monocytes Not Reportable Absolute Eosinophils Not Reportable Absolute Basophils Not Reportable Carbonic Acid HCO3/H2CO3 Ratio ABG pH ABG pCO2 ABG pO2 ABG HCO3 ABG O2 Saturation ABG Base Excess VBG pH VBG pCO2 VBG HCO3 VBG Base Excess FiO2 Sodium 160.9 H Potassium 3.5 L D Chloride 123 H Carbon Dioxide 25 Anion Gap 13 BUN 123 H Creatinine 2.47 H Est GFR ( Amer) 23 L Est GFR (Non-Af Amer) 19 L Glucose 182 H Lactic Acid 2.4 H Calcium 8.9 Phosphorus Magnesium Total Bilirubin 0.3 AST 24 ALT 20 Alkaline Phosphatase 122 Ammonia Total Protein 7.0 Albumin 3.8 Amylase Lipase TSH Free T4 Urine Color Urine Appearance Urine pH Ur Specific [place] Urine Protein Urine Glucose (UA) Urine Ketones Urine Blood Urine Nitrite Ur Leukocyte Esterase Urine WBC (Auto) Urine RBC (Auto) 06/29/18 06/30/18 06/30/18 23:13 05:10 05:10 WBC RBC Hgb Hct MCV MCH MCHC RDW Plt Count Seg Neutrophils % Lymphocytes % Monocytes % Eosinophils % Basophils % Absolute Neutrophils Absolute Lymphocytes Absolute Monocytes Absolute Eosinophils Absolute Basophils Carbonic Acid HCO3/H2CO3 Ratio ABG pH ABG pCO2 ABG pO2 ABG HCO3 ABG O2 Saturation ABG Base Excess VBG pH 7.33 VBG pCO2 53.0 VBG HCO3 27.6 VBG Base Excess 0.7 FiO2 Sodium Potassium Chloride Carbon Dioxide Anion Gap BUN Creatinine Est GFR ( Amer) Est GFR (Non-Af Amer) Glucose Lactic Acid Calcium Phosphorus 3.4 Magnesium 2.7 H Total Bilirubin AST ALT Alkaline Phosphatase Ammonia Total Protein Albumin Amylase 105 Lipase 204.9 TSH 1.49 Free T4 1.95 Urine Color Urine Appearance Urine pH Ur Specific [place] Urine Protein Urine Glucose (UA) Urine Ketones Urine Blood Urine Nitrite Ur Leukocyte Esterase Urine WBC (Auto) Urine RBC (Auto) 06/30/18 06/30/18 06/30/18 05:10 05:15 05:15 WBC Cancelled RBC Cancelled Hgb Cancelled Hct Cancelled MCV Cancelled MCH Cancelled MCHC Cancelled RDW Cancelled Plt Count Cancelled Seg Neutrophils % Cancelled Lymphocytes % Cancelled Monocytes % Cancelled Eosinophils % Cancelled Basophils % Cancelled Absolute Neutrophils Cancelled Absolute Lymphocytes Cancelled Absolute Monocytes Cancelled Absolute Eosinophils Cancelled Absolute Basophils Cancelled Carbonic Acid HCO3/H2CO3 Ratio ABG pH ABG pCO2 ABG pO2 ABG HCO3 ABG O2 Saturation ABG Base Excess VBG pH VBG pCO2 VBG HCO3 VBG Base Excess FiO2 Sodium Potassium Chloride Carbon Dioxide Anion Gap BUN Creatinine Est GFR ( Amer) Est GFR (Non-Af Amer) Glucose Lactic Acid 4.6 H Calcium Phosphorus Magnesium Total Bilirubin AST ALT Alkaline Phosphatase Ammonia < 8.7 L Total Protein Albumin Amylase Lipase TSH Free T4 Urine Color Urine Appearance Urine pH Ur Specific [place] Urine Protein Urine Glucose (UA) Urine Ketones Urine Blood Urine Nitrite Ur Leukocyte Esterase Urine WBC (Auto) Urine RBC (Auto) 06/30/18 06/30/18 06/30/18 06:40 11:32 14:17 WBC RBC Hgb Hct MCV MCH MCHC RDW Plt Count Seg Neutrophils % Lymphocytes % Monocytes % Eosinophils % Basophils % Absolute Neutrophils Absolute Lymphocytes Absolute Monocytes Absolute Eosinophils Absolute Basophils Carbonic Acid 1.18 HCO3/H2CO3 Ratio 18:1 ABG pH 7.36 ABG pCO2 39.3 ABG pO2 81.2 ABG HCO3 21.9 ABG O2 Saturation 95.7 ABG Base Excess -3.1 VBG pH VBG pCO2 VBG HCO3 VBG Base Excess FiO2 ROOM AIR Sodium 158.7 H Potassium 2.8 L* Chloride 121 H Carbon Dioxide 23 Anion Gap 15 BUN 93 H D Creatinine 1.60 H Est GFR ( Amer) 37 L Est GFR (Non-Af Amer) 31 L Glucose 313 H Lactic Acid Calcium 8.3 L Phosphorus Magnesium Total Bilirubin 0.3 AST 18 ALT 28 Alkaline Phosphatase 101 Ammonia Total Protein 5.8 L Albumin 3.0 L Amylase Lipase TSH Free T4 Urine Color YELLOW Urine Appearance SLIGHTLY-CLOUDY Urine pH 5.0 Ur Specific [place] 1.018 Urine Protein NEGATIVE Urine Glucose (UA) >=500 H Urine Ketones NEGATIVE Urine Blood MODERATE H Urine Nitrite POSITIVE H Ur Leukocyte Esterase NEGATIVE Urine WBC (Auto) 5 Urine RBC (Auto) 0 06/30/18 06/30/18 06/30/18 05:10 05:10 11:32 Creatine Kinase 228 H 187 H CK-MB (CK-2) 2.60 Troponin I 0.014 NT-Pro-B Natriuret Pep 310 06/30/18 11:32 Creatine Kinase CK-MB (CK-2) 2.30 Troponin I < 0.012 NT-Pro-B Natriuret Pep Impressions: Chest X-Ray 06/29/18 22:23 IMPRESSION: No definite pneumonia. Assessment & Plan - Plan Summary Plan Summary: stage 2 heel ulcer and stage 1=2 knee ulcer. heel ulcer debrided at bedside and dressed with santyl oint I had a very long discussion with pts family, she has sever dementia and contractures the heel wound may extend to bone and result in a osteomylitis. family is very much against amputation or even surgery for bone debridement if indeed she does have an osteo I will order a ap/lat foot xray to assess the bone. would cont lenard dressing changes at least bid
[2018-06-30 18:01] LABS: HEMOGLOBIN 11.8 g/dL (12.0-15.5); MEAN CORPUSCULAR HEMOGLOBIN 27.3 pg (27.0-33.4); MEAN CORPUSCULAR HGB CONC 31.1 g/dL (32.0-36.0); MEAN CORPUSCULAR VOLUME 88 fl (80-97); PLATELET COUNT 348 10^3/uL (150-450); RED BLOOD COUNT 4.34 10^6/uL (3.72-5.28); RED CELL DISTRIBUTION WIDTH 16.7 % (11.5-14.0)
[2018-06-30 18:24] LABS: CREATINE KINASE MB 2.37 ng/mL (<4.55)
[2018-06-30 18:28] LABS: TROPONIN I < 0.012 ng/mL
[2018-06-30 18:45] LABS: ABSOLUTE LYMPHOCYTES# (MANUAL) 0.8 10^3/uL (0.5-4.7); ABSOLUTE MONOCYTES # (MANUAL) 0.4 10^3/uL (0.1-1.4); ABSOLUTE NEUTROPHILS# (MANUAL) 37.6 10^3/uL (1.7-8.2); BAND NEUTROPHILS % (MANUAL) 2 % (3-5); BASOPHILS % (MANUAL) 0 % (0-2); EOSINOPHILS % (MANUAL) 0 % (0-6); LYMPHOCYTES % (MANUAL) 2 % (13-45); MONOCYTES % (MANUAL) 1 % (3-13); SEGMENTED NEUTROPHILS % (MAN) 95 % (42-78); TOTAL CELLS COUNTED 100
[2018-06-30 18:46] LABS: ANISOCYTOSIS 1+; OVALOCYTES SLIGHT; PLATELET COMMENT ADEQUATE; TARGET CELLS SLIGHT; TOXIC VACUOLATION PRESENT
[2018-06-30 18:48] LABS: WHITE BLOOD COUNT 38.8 10^3/uL (4.0-10.5)
[2018-06-30] MEDS: POTASSI CL 20 MEQ/50 ML RIDER 20 MEQ/50 ML RTUPB IV SCH ×2 (18:59→22:47)
[2018-06-30] MEDS ORDERED: VANCOMYCIN HCL 0 MG in DEXTROSE 5%-WATER 250 ML IV NR (19:00)
--- NOTE | 2018-06-30 19:19 | RADIOLOGY REPORT (SQ) ---
EXAM DESCRIPTION: FOOT LEFT 2 VIEWS COMPLETED DATE/TIME: 06/30/2018 6:23 pm REASON FOR STUDY: r/o osteo left heel COMPARISON: None. NUMBER OF VIEWS: Two views. TECHNIQUE: AP and lateral radiographic images acquired of the left foot. LIMITATIONS: None. FINDINGS: MINERALIZATION: Osteopenia. BONES: No bone destruction. No fracture or dislocation. JOINTS: No effusions. SOFT TISSUES: No soft tissue swelling. No foreign body. OTHER: No other significant finding. IMPRESSION: Osteopenia. No evidence of osteomyelitis. TECHNICAL DOCUMENTATION: JOB ID: [id number] [employer]- All Rights Reserved Reading location - IP/workstation name: [email or web address]
[2018-06-30] MEDS: VANCOMYCIN HCL 750 MG in DEXTROSE 5%-WATER 250 ML IV SCH (22:48)
[2018-07-01] MEDS: HEPARIN SOD (PORCINE) 5,000 UNIT/ML 1 ML SYRINGE SUBCUT SCH ×3 (05:26→23:15)
[2018-07-01 06:43] LABS: HEMATOCRIT 34.3 % (36.0-47.0); HEMOGLOBIN 10.7 g/dL (12.0-15.5); MEAN CORPUSCULAR HEMOGLOBIN 27.5 pg (27.0-33.4); MEAN CORPUSCULAR VOLUME 89 fl (80-97); PLATELET COUNT 281 10^3/uL (150-450); RED BLOOD COUNT 3.88 10^6/uL (3.72-5.28); RED CELL DISTRIBUTION WIDTH 16.7 % (11.5-14.0); WHITE BLOOD COUNT 26.4 10^3/uL (4.0-10.5)
[2018-07-01] MEDS: DEXTROSE 5%-WATER 1000 ML 1,000 ML IV PRN ×2 (06:51→18:16)
[2018-07-01 06:53] LABS: ALANINE AMINOTRANSFERASE 21 U/L (9-52); ALBUMIN 2.8 g/dL (3.5-5.0); ALKALINE PHOSPHATASE 100 U/L (38-126); ANION GAP 9 (5-19); ASPARTATE AMINO TRANSFERASE 18 U/L (14-36); BILIRUBIN,DIRECT 0.3 mg/dL (0.0-0.4); BILIRUBIN,TOTAL 0.3 mg/dL (0.2-1.3); CALCIUM 8.2 mg/dL (8.4-10.2); CARBON DIOXIDE 27 mmol/L (22-30); CHLORIDE 118 mmol/L (98-107); CHOLESTEROL 132.04 mg/dL (0-200); GLUCOSE 151 mg/dL (75-110); POTASSIUM 3.1 mmol/L (3.6-5.0); SODIUM 153.9 mmol/L (137-145); TOTAL PROTEIN 5.4 g/dL (6.3-8.2); TRIGLYCERIDES 100 mg/dL (<150)
[2018-07-01 07:03] LABS: DIRECT LDL 60 mg/dL (<100)
[2018-07-01 07:20] LABS: BLOOD UREA NITROGEN 71 mg/dL (7-20)
[2018-07-01 07:53] LABS: ABSOLUTE LYMPHOCYTES# (MANUAL) 2.1 10^3/uL (0.5-4.7); ABSOLUTE MONOCYTES # (MANUAL) 0.3 10^3/uL (0.1-1.4); ANISOCYTOSIS 1+; BASOPHILS % (MANUAL) 0 % (0-2); BURR CELLS 1+; EOSINOPHILS % (MANUAL) 0 % (0-6); LYMPHOCYTES % (MANUAL) 8 % (13-45); MONOCYTES % (MANUAL) 1 % (3-13); POIKILOCYTOSIS 1+; SEGMENTED NEUTROPHILS % (MAN) 91 % (42-78); TOTAL CELLS COUNTED 100
[2018-07-01 07:54] LABS: OVALOCYTES 1+; PLATELET COMMENT ADEQUATE; SCHISTOCYTES SLIGHT
[2018-07-01] MEDS: INSULIN LISPRO 100 UNIT/ML 3 ML VIAL SUBCUT SCH ×4 (09:49→23:11)
[2018-07-01] MEDS: AMPICILLIN SODIUM/SULBACTAM NA 3 GM in NORMAL SALINE 100 ML IV SCH (09:54)
[2018-07-01] MEDS: COLLAGENASE CLOSTRIDIUM HIST. OINT 30 GM TOP SCH (09:57)
[2018-07-01] MEDS: POTASSI CL 20 MEQ/50 ML RIDER 20 MEQ/50 ML RTUPB IV SCH ×2 (11:03→16:40)
--- NOTE | 2018-07-01 11:48 | PDOC PROGRESS REPORT ---
Subjective Progress Note for:: 07/01/18 Subjective:: demented, not oriented x 3 Reason For Visit: HYPERNATREMIA,DECUBITUS FOOT ULCER,SEPSIS,SOURSE,? Physical Exam Vital Signs: Temp Pulse Resp BP Pulse Ox 97.3 F 90 12 97/72 L 90 L 07/01/18 08:00 07/01/18 08:00 07/01/18 08:00 07/01/18 08:00 07/01/18 08:00 Intake & Output 06/30/18 07/01/18 07/02/18 06:59 06:59 06:59 Intake Total 1100 2550 Balance 1100 2550 Weight 44.707 kg 53.5 kg Skin exam: PRESENT: other - 1) Left heel: grade 4 pressure @ 2.5 cm diameter, clean, granulatin, no odor, no drainage or erythema, exposed bone 2) Left inner knee: grade 2 prssure sore, 1 cm diameter 3) Sacrum: grade 2 pressure sore, 1 cm diameter Results Laboratory Results: 07/01/18 06:05 07/01/18 06:05 06/30/18 06/30/18 06/30/18 05:10 11:32 14:17 WBC Cancelled RBC Cancelled Hgb Cancelled Hct Cancelled MCV Cancelled MCH Cancelled MCHC Cancelled RDW Cancelled Plt Count Cancelled Seg Neutrophils % Cancelled Lymphocytes % Cancelled Monocytes % Cancelled Eosinophils % Cancelled Basophils % Cancelled Absolute Neutrophils Cancelled Absolute Lymphocytes Cancelled Absolute Monocytes Cancelled Absolute Eosinophils Cancelled Absolute Basophils Cancelled Sodium 158.7 H Potassium 2.8 L* Chloride 121 H Carbon Dioxide 23 Anion Gap 15 BUN 93 H D Creatinine 1.60 H Est GFR ( Amer) 37 L Est GFR (Non-Af Amer) 31 L Glucose 313 H Calcium 8.3 L Total Bilirubin 0.3 AST 18 ALT 28 Alkaline Phosphatase 101 Total Protein 5.8 L Albumin 3.0 L Triglycerides Cholesterol LDL Cholesterol Direct VLDL Cholesterol HDL Cholesterol Urine Color YELLOW Urine Appearance SLIGHTLY-CLOUDY Urine pH 5.0 Ur Specific [place] 1.018 Urine Protein NEGATIVE Urine Glucose (UA) >=500 H Urine Ketones NEGATIVE Urine Blood MODERATE H Urine Nitrite POSITIVE H Ur Leukocyte Esterase NEGATIVE Urine WBC (Auto) 5 Urine RBC (Auto) 0 06/30/18 07/01/18 07/01/18 17:46 06:05 06:05 WBC 38.8 H* 26.4 H RBC 4.34 3.88 Hgb 11.8 L 10.7 L Hct 38.0 34.3 L MCV 88 89 MCH 27.3 27.5 MCHC 31.1 L 31.0 L RDW 16.7 H 16.7 H Plt Count 348 281 Seg Neutrophils % Not Reportable Not Reportable Lymphocytes % Not Reportable Not Reportable Monocytes % Not Reportable Not Reportable Eosinophils % Not Reportable Not Reportable Basophils % Not Reportable Not Reportable Absolute Neutrophils Not Reportable Not Reportable Absolute Lymphocytes Not Reportable Not Reportable Absolute Monocytes Not Reportable Not Reportable Absolute Eosinophils Not Reportable Not Reportable Absolute Basophils Not Reportable Not Reportable Sodium 153.9 H Potassium 3.1 L Chloride 118 H Carbon Dioxide 27 Anion Gap 9 BUN 71 H D Creatinine 1.05 Est GFR ( Amer) > 60 Est GFR (Non-Af Amer) 50 L Glucose 151 H Calcium 8.2 L Total Bilirubin 0.3 AST 18 ALT 21 Alkaline Phosphatase 100 Total Protein 5.4 L Albumin 2.8 L Triglycerides 100 Cholesterol 132.04 LDL Cholesterol Direct 60 VLDL Cholesterol 20.0 HDL Cholesterol 40 Urine Color Urine Appearance Urine pH Ur Specific [place] Urine Protein Urine Glucose (UA) Urine Ketones Urine Blood Urine Nitrite Ur Leukocyte Esterase Urine WBC (Auto) Urine RBC (Auto) 06/30/18 06/30/18 06/30/18 05:10 05:10 11:32 Creatine Kinase 228 H 187 H CK-MB (CK-2) 2.60 Troponin I 0.014 NT-Pro-B Natriuret Pep 310 06/30/18 06/30/18 06/30/18 11:32 17:46 17:46 Creatine Kinase 178 H CK-MB (CK-2) 2.30 2.37 Troponin I < 0.012 < 0.012 NT-Pro-B Natriuret Pep Impressions: Chest X-Ray 06/29/18 22:23 IMPRESSION: No definite pneumonia. Foot X-Ray 06/30/18 00:00 IMPRESSION: Osteopenia. No evidence of osteomyelitis. Assessment & Plan - Diagnosis (1) Decubitus ulcer of knee, stage 2 Qualifiers: Laterality: left Qualified Code(s): L89.892 - Pressure ulcer of other site, stage 2 Is this a current diagnosis for this admission?: Yes (2) Decubitus ulcer of left heel, stage 2 Is this a current diagnosis for this admission?: Yes - Plan Summary Plan Summary: A/ demented, bedridden patient Grade 4 small left heel pressure sore grade 2 left inner knee and sacrum (1 cm in diameter each) Xray left foot shows no osteomyelitis P/ Continue Santyl to left heel BID x 1 week, then apply Allevyn dressing as per routine Continue current management of left inner knee and sacrum pressure sores with Allevyn I priscila sign off, please call me with questions.
[2018-07-01 11:51] LABS: PATH REVIEW PATHOLOGIST REVIEWED
[2018-07-01] MEDS ORDERED: POTASSI CL 20 MEQ/50 ML RIDER 20 MEQ/50 ML RTUPB IV ONE (16:39)
--- NOTE | 2018-07-01 20:17 | PDOC PROGRESS REPORT ---
Subjective Progress Note for:: 07/01/18 Subjective:: Patient seen by the bedside she is more responsive today Reason For Visit: HYPERNATREMIA,DECUBITUS FOOT ULCER,SEPSIS,SOURSE,? Physical Exam Vital Signs: Temp Pulse Resp BP Pulse Ox 97.1 F 84 14 139/44 H 90 L 07/01/18 16:00 07/01/18 16:00 07/01/18 16:00 07/01/18 16:00 07/01/18 16:00 Intake & Output 06/30/18 07/01/18 07/02/18 06:59 06:59 06:59 Intake Total 1100 2550 1200 Balance 1100 2550 1200 Weight 44.707 kg 53.5 kg Results Laboratory Results: 07/01/18 06:05 07/01/18 06:05 07/01/18 07/01/18 06:05 06:05 WBC 26.4 H RBC 3.88 Hgb 10.7 L Hct 34.3 L MCV 89 MCH 27.5 MCHC 31.0 L RDW 16.7 H Plt Count 281 Seg Neutrophils % Not Reportable Lymphocytes % Not Reportable Monocytes % Not Reportable Eosinophils % Not Reportable Basophils % Not Reportable Absolute Neutrophils Not Reportable Absolute Lymphocytes Not Reportable Absolute Monocytes Not Reportable Absolute Eosinophils Not Reportable Absolute Basophils Not Reportable Sodium 153.9 H Potassium 3.1 L Chloride 118 H Carbon Dioxide 27 Anion Gap 9 BUN 71 H D Creatinine 1.05 Est GFR ( Amer) > 60 Est GFR (Non-Af Amer) 50 L Glucose 151 H Calcium 8.2 L Total Bilirubin 0.3 AST 18 ALT 21 Alkaline Phosphatase 100 Total Protein 5.4 L Albumin 2.8 L Triglycerides 100 Cholesterol 132.04 LDL Cholesterol Direct 60 VLDL Cholesterol 20.0 HDL Cholesterol 40 06/30/18 06/30/18 06/30/18 05:10 05:10 11:32 Creatine Kinase 228 H 187 H CK-MB (CK-2) 2.60 Troponin I 0.014 NT-Pro-B Natriuret Pep 310 06/30/18 06/30/18 06/30/18 11:32 17:46 17:46 Creatine Kinase 178 H CK-MB (CK-2) 2.30 2.37 Troponin I < 0.012 < 0.012 NT-Pro-B Natriuret Pep Impressions: Chest X-Ray 06/29/18 22:23 IMPRESSION: No definite pneumonia. Foot X-Ray 06/30/18 00:00 IMPRESSION: Osteopenia. No evidence of osteomyelitis. Assessment & Plan - Diagnosis (1) Sepsis Qualifiers: Sepsis type: sepsis due to unspecified organism Qualified Code(s): A41.9 - Sepsis, unspecified organism Is this a current diagnosis for this admission?: Yes Plan: Continue antibiotic, The blood culture is growing gram-positive cocci in clusters (2) Decubitus ulcer of sacral region, stage 1 Is this a current diagnosis for this admission?: Yes (3) Decubitus ulcer of left heel, stage 2 Is this a current diagnosis for this admission?: Yes (4) Metabolic encephalopathy Is this a current diagnosis for this admission?: Yes (5) Hypernatremia Is this a current diagnosis for this admission?: Yes Plan: This is a poor prognostic sign, continue 5% dextrose (6) Type 2 diabetes mellitus Qualifiers: Diabetes mellitus terminal block assembler insulin use: without detention use Diabetes mellitus complication status: with neurologic complications Diabetes mellitus complication detail: with polyneuropathy Qualified Code(s): E11.42 - Type 2 diabetes mellitus with diabetic polyneuropathy Is this a current diagnosis for this admission?: Yes (7) Acute kidney injury Is this a current diagnosis for this admission?: Yes (8) Hypokalemia Is this a current diagnosis for this admission?: Yes Plan: Administer K riders (9) Septicemia Is this a current diagnosis for this admission?: Yes
[2018-07-02] MEDS: HEPARIN SOD (PORCINE) 5,000 UNIT/ML 1 ML SYRINGE SUBCUT SCH ×3 (05:46→21:12)
[2018-07-02 06:28] LABS: ABSOLUTE BASOPHILS # (AUTO) 0.1 10^3/uL (0.0-0.2); ABSOLUTE EOSINOPHILS # (AUTO) 0.2 10^3/uL (0.0-0.6); ABSOLUTE LYMPHOCYTES (AUTO) 1.1 10^3/uL (0.5-4.7); ABSOLUTE MONOCYTES (AUTO) 0.4 10^3/uL (0.1-1.4); ABSOLUTE NEUT (AUTO) 13.9 10^3/uL (1.7-8.2); BASOPHILS % (AUTO) 0.4 % (0-2); EOSINOPHILS % (AUTO) 1.2 % (0-6); HEMATOCRIT 35.5 % (36.0-47.0); HEMOGLOBIN 11.3 g/dL (12.0-15.5); MEAN CORPUSCULAR HEMOGLOBIN 27.9 pg (27.0-33.4); MEAN CORPUSCULAR HGB CONC 31.9 g/dL (32.0-36.0); MEAN CORPUSCULAR VOLUME 87 fl (80-97); MONOCYTES % (AUTO) 2.8 % (3-13); PLATELET COUNT 277 10^3/uL (150-450); RED BLOOD COUNT 4.06 10^6/uL (3.72-5.28); RED CELL DISTRIBUTION WIDTH 16.6 % (11.5-14.0); SEGMENTED NEUTROPHILS % (AUTO) 88.6 % (42-78); TOTAL CELLS COUNTED % (AUTO) 100 %; WHITE BLOOD COUNT 15.7 10^3/uL (4.0-10.5)
[2018-07-02] MEDS: DEXTROSE 5%-WATER 1000 ML 1,000 ML IV PRN (06:31)
[2018-07-02 06:46] LABS: ALANINE AMINOTRANSFERASE 36 U/L (9-52); ALBUMIN 2.9 g/dL (3.5-5.0); ALKALINE PHOSPHATASE 105 U/L (38-126); ANION GAP 7 (5-19); ASPARTATE AMINO TRANSFERASE 27 U/L (14-36); BILIRUBIN,DIRECT 0.2 mg/dL (0.0-0.4); BILIRUBIN,TOTAL 0.4 mg/dL (0.2-1.3); BLOOD UREA NITROGEN 42 mg/dL (7-20); CALCIUM 8.1 mg/dL (8.4-10.2); CARBON DIOXIDE 27 mmol/L (22-30); CHLORIDE 115 mmol/L (98-107); GLUCOSE 104 mg/dL (75-110); TOTAL PROTEIN 5.6 g/dL (6.3-8.2)
[2018-07-02] MEDS: INSULIN LISPRO 100 UNIT/ML 3 ML VIAL SUBCUT SCH ×4 (09:58→21:14)
[2018-07-02] MEDS: AMPICILLIN SODIUM/SULBACTAM NA 3 GM in NORMAL SALINE 100 ML IV SCH (10:00)
[2018-07-02] MEDS: COLLAGENASE CLOSTRIDIUM HIST. OINT 30 GM TOP SCH (10:14)
--- NOTE | 2018-07-02 20:59 | PDOC PROGRESS REPORT ---
Subjective Progress Note for:: 07/02/18 Subjective:: Patient seen by the bedside,she continue to improve Reason For Visit: HYPERNATREMIA,DECUBITUS FOOT ULCER,SEPSIS,SOURSE,? Physical Exam Vital Signs: Temp Pulse Resp BP Pulse Ox 97.5 F 77 16 144/66 H 98 07/01/18 23:08 07/02/18 16:31 07/02/18 16:31 07/02/18 16:31 07/02/18 11:08 Intake & Output 07/01/18 07/02/18 07/03/18 06:59 06:59 06:59 Intake Total 2550 2250 1218 Balance 2550 2250 1218 Weight 53.5 kg 48.7 kg General appearance: PRESENT: no acute distress Eye exam: PRESENT: PERRLA Respiratory exam: PRESENT: clear to auscultation sandra Cardiovascular exam: PRESENT: +S1, +S2 GI/Abdominal exam: PRESENT: soft Results Laboratory Results: 07/02/18 06:15 07/02/18 06:15 07/02/18 07/02/18 06:15 06:15 WBC 15.7 H RBC 4.06 Hgb 11.3 L Hct 35.5 L MCV 87 MCH 27.9 MCHC 31.9 L RDW 16.6 H Plt Count 277 Seg Neutrophils % 88.6 H Lymphocytes % 7.0 L Monocytes % 2.8 L Eosinophils % 1.2 Basophils % 0.4 Absolute Neutrophils 13.9 H Absolute Lymphocytes 1.1 Absolute Monocytes 0.4 Absolute Eosinophils 0.2 Absolute Basophils 0.1 Sodium 149.0 H Potassium 4.0 Chloride 115 H Carbon Dioxide 27 Anion Gap 7 BUN 42 H Creatinine 0.72 Est GFR ( Amer) > 60 Est GFR (Non-Af Amer) > 60 Glucose 104 Calcium 8.1 L Total Bilirubin 0.4 AST 27 ALT 36 Alkaline Phosphatase 105 Total Protein 5.6 L Albumin 2.9 L 06/30/18 14:17 Catheterized Urine Urine Culture - Final Escherichia Coli 06/30/18 06/30/18 06/30/18 05:10 05:10 11:32 Creatine Kinase 228 H 187 H CK-MB (CK-2) 2.60 Troponin I 0.014 NT-Pro-B Natriuret Pep 310 06/30/18 06/30/18 06/30/18 11:32 17:46 17:46 Creatine Kinase 178 H CK-MB (CK-2) 2.30 2.37 Troponin I < 0.012 < 0.012 NT-Pro-B Natriuret Pep Impressions: Chest X-Ray 06/29/18 22:23 IMPRESSION: No definite pneumonia. Foot X-Ray 06/30/18 00:00 IMPRESSION: Osteopenia. No evidence of osteomyelitis. Assessment & Plan - Diagnosis (1) Sepsis Qualifiers: Sepsis type: sepsis due to unspecified organism Qualified Code(s): A41.9 - Sepsis, unspecified organism Is this a current diagnosis for this admission?: Yes Plan: Continue antibiotic, The blood culture is growing gram-positive cocci in clusters (2) Decubitus ulcer of sacral region, stage 1 Is this a current diagnosis for this admission?: Yes (3) Decubitus ulcer of left heel, stage 2 Is this a current diagnosis for this admission?: Yes Plan: Consultation will be obtained from the surgeon (4) Metabolic encephalopathy Is this a current diagnosis for this admission?: Yes (5) Hypernatremia Is this a current diagnosis for this admission?: Yes (6) Type 2 diabetes mellitus Qualifiers: Diabetes mellitus mcfp insulin use: without intermediate project manager use Diabetes mellitus complication status: with neurologic complications Diabetes mellitus complication detail: with polyneuropathy Qualified Code(s): E11.42 - Type 2 diabetes mellitus with diabetic polyneuropathy Is this a current diagnosis for this admission?: Yes (7) Acute kidney injury Is this a current diagnosis for this admission?: Yes (8) Hypokalemia Is this a current diagnosis for this admission?: Yes (9) Septicemia Is this a current diagnosis for this admission?: Yes
[2018-07-02] MEDS: VANCOMYCIN HCL 750 MG in DEXTROSE 5%-WATER 250 ML IV SCH (21:12)
[2018-07-03] MEDS: HEPARIN SOD (PORCINE) 5,000 UNIT/ML 1 ML SYRINGE SUBCUT SCH ×3 (05:45→23:08)
[2018-07-03 07:52] LABS: HEMATOCRIT 34.6 % (36.0-47.0); HEMOGLOBIN 10.8 g/dL (12.0-15.5); MEAN CORPUSCULAR HEMOGLOBIN 27.3 pg (27.0-33.4); MEAN CORPUSCULAR HGB CONC 31.2 g/dL (32.0-36.0); MEAN CORPUSCULAR VOLUME 87 fl (80-97); PLATELET COUNT 318 10^3/uL (150-450); RED BLOOD COUNT 3.96 10^6/uL (3.72-5.28); RED CELL DISTRIBUTION WIDTH 16.6 % (11.5-14.0); WHITE BLOOD COUNT 16.3 10^3/uL (4.0-10.5)
[2018-07-03 08:26] LABS: ABSOLUTE LYMPHOCYTES# (MANUAL) 0.7 10^3/uL (0.5-4.7); ABSOLUTE MONOCYTES # (MANUAL) 0.2 10^3/uL (0.1-1.4); ABSOLUTE NEUTROPHILS# (MANUAL) 15.5 10^3/uL (1.7-8.2); BASOPHILS % (MANUAL) 0 % (0-2); EOSINOPHILS % (MANUAL) 0 % (0-6); LYMPHOCYTES % (MANUAL) 4 % (13-45); MONOCYTES % (MANUAL) 1 % (3-13); SEGMENTED NEUTROPHILS % (MAN) 95 % (42-78); TOTAL CELLS COUNTED 100
[2018-07-03 08:27] LABS: ANISOCYTOSIS 1+; OVALOCYTES 1+; PLATELET CLUMPS PRESENT; PLATELET COMMENT ADEQUATE; POIKILOCYTOSIS 1+
[2018-07-03 08:31] LABS: ALANINE AMINOTRANSFERASE 31 U/L (9-52); ALBUMIN 2.8 g/dL (3.5-5.0); ALKALINE PHOSPHATASE 144 U/L (38-126); ANION GAP 8 (5-19); ASPARTATE AMINO TRANSFERASE 25 U/L (14-36); BILIRUBIN,DIRECT 0.2 mg/dL (0.0-0.4); BILIRUBIN,TOTAL 0.3 mg/dL (0.2-1.3); BLOOD UREA NITROGEN 23 mg/dL (7-20); CALCIUM 7.8 mg/dL (8.4-10.2); CARBON DIOXIDE 28 mmol/L (22-30); CHLORIDE 112 mmol/L (98-107); GLUCOSE 209 mg/dL (75-110); POTASSIUM 3.8 mmol/L (3.6-5.0); SODIUM 147.9 mmol/L (137-145); TOTAL PROTEIN 5.4 g/dL (6.3-8.2)
[2018-07-03] MEDS: INSULIN LISPRO 100 UNIT/ML 3 ML VIAL SUBCUT SCH ×4 (09:34→23:07)
[2018-07-03] MEDS: COLLAGENASE CLOSTRIDIUM HIST. OINT 30 GM TOP SCH (09:40)
[2018-07-03] MEDS: AMPICILLIN SODIUM/SULBACTAM NA 3 GM in NORMAL SALINE 100 ML IV SCH (12:10)
[2018-07-03] MEDS: VANCOMYCIN HCL 1,000 MG in DEXTROSE 5%-WATER 250 ML IV SCH (13:43)
--- NOTE | 2018-07-03 15:27 | PDOC PROGRESS REPORT ---
Subjective Progress Note for:: 07/03/18 Subjective:: Daughter at bedside reported improved food intake with assistance. There is reported episodic coughing with audible wheezing per daughter. No reported chest pain or difficulty with breathing. No reported fever. Bowel movement is satisfactory. Reason For Visit: HYPERNATREMIA,DECUBITUS FOOT ULCER,SEPSIS,SOURSE,? Physical Exam Vital Signs: Temp Pulse Resp BP Pulse Ox 97.7 F 104 H 17 145/81 H 95 07/03/18 12:35 07/03/18 12:35 07/03/18 12:35 07/03/18 12:35 07/03/18 12:35 Intake & Output 07/02/18 07/03/18 07/04/18 06:59 06:59 06:59 Intake Total 2250 1493 100 Balance 2250 1493 100 Weight 48.7 kg 57.9 kg General appearance: PRESENT: no acute distress Head exam: PRESENT: atraumatic, normocephalic Respiratory exam: PRESENT: decreased breath sounds - at lung bases, wheezes - minimal wheezing in end expiratory phase Cardiovascular exam: PRESENT: RRR, +S1, +S2. ABSENT: diastolic murmur, rubs, systolic murmur Vascular exam: ABSENT: pallor GI/Abdominal exam: PRESENT: normal bowel sounds, soft. ABSENT: distended, guarding, mass, organolmegaly, rebound, tenderness Extremities exam: ABSENT: pedal edema Neurological exam: PRESENT: alert, awake Skin exam: PRESENT: dry, warm, other - stage 1 sacral and stage 2 left heel pressure ulces. Results Laboratory Results: 07/03/18 07:19 07/03/18 07:19 07/03/18 07/03/18 07:19 07:19 WBC 16.3 H RBC 3.96 Hgb 10.8 L Hct 34.6 L MCV 87 MCH 27.3 MCHC 31.2 L RDW 16.6 H Plt Count 318 Seg Neutrophils % Not Reportable Lymphocytes % Not Reportable Monocytes % Not Reportable Eosinophils % Not Reportable Basophils % Not Reportable Absolute Neutrophils Not Reportable Absolute Lymphocytes Not Reportable Absolute Monocytes Not Reportable Absolute Eosinophils Not Reportable Absolute Basophils Not Reportable Sodium 147.9 H Potassium 3.8 Chloride 112 H Carbon Dioxide 28 Anion Gap 8 BUN 23 H Creatinine 0.72 Est GFR ( Amer) > 60 Est GFR (Non-Af Amer) > 60 Glucose 209 H Calcium 7.8 L Total Bilirubin 0.3 AST 25 ALT 31 Alkaline Phosphatase 144 H Total Protein 5.4 L Albumin 2.8 L 06/30/18 06/30/18 06/30/18 05:10 05:10 11:32 Creatine Kinase 228 H 187 H CK-MB (CK-2) 2.60 Troponin I 0.014 NT-Pro-B Natriuret Pep 310 06/30/18 06/30/18 06/30/18 11:32 17:46 17:46 Creatine Kinase 178 H CK-MB (CK-2) 2.30 2.37 Troponin I < 0.012 < 0.012 NT-Pro-B Natriuret Pep Impressions: Chest X-Ray 06/29/18 22:23 IMPRESSION: No definite pneumonia. Foot X-Ray 06/30/18 00:00 IMPRESSION: Osteopenia. No evidence of osteomyelitis. Assessment & Plan - Diagnosis (1) Acute kidney injury Is this a current diagnosis for this admission?: Yes Plan: Continue current fluid support. Monitor renal indices. (2) Decubitus ulcer of left heel, stage 2 Is this a current diagnosis for this admission?: Yes Plan: Continue current antibiotic coverage. (3) Decubitus ulcer of sacral region, stage 1 Is this a current diagnosis for this admission?: Yes Plan: Continue current antibiotic coverage. (4) Staphylococcus septicemia Is this a current diagnosis for this admission?: Yes Plan: Continue current antibiotic coverage. 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 - Time Time Spent with patient: 25-34 minutes Medications reviewed and adjusted accordingly: Yes Anticipated discharge: SNF Within: Other - Inpatient Certification Based on my medical assessment, after consideration of the patient's comorbidities, presenting symptoms, or acuity I expect that the services needed warrant INPATIENT care.: Yes I certify that my determination is in accordance with my understanding of Medicare's requirements for reasonable and necessary INPATIENT services [42 CFR 412.3e].: Yes Medical Necessity: Need Close Monitoring Due to Risk of Patient Decompensation, Need For IV Fluids, Need For Continuous Telemetry Monitoring, Need for IV Antibiotics, Risk of Complication if Not Cared For in Hospital, Risk of Diagnosis Which Will Require Inpatient Eval/Care/Monitoring Post Hospital Care: D/C or Transfer Summary - Plan Summary Plan Summary: Continue current medication management. She will benefit from feeding assistance.
[2018-07-03] MEDS: DEXTROSE 5%-WATER 1000 ML 1,000 ML IV PRN (23:09)
[2018-07-04] MEDS: HEPARIN SOD (PORCINE) 5,000 UNIT/ML 1 ML SYRINGE SUBCUT SCH ×3 (05:02→21:39)
[2018-07-04 05:42] LABS: ABSOLUTE EOSINOPHILS # (AUTO) 0.1 10^3/uL (0.0-0.6); ABSOLUTE LYMPHOCYTES (AUTO) 1.3 10^3/uL (0.5-4.7); ABSOLUTE MONOCYTES (AUTO) 0.5 10^3/uL (0.1-1.4); EOSINOPHILS % (AUTO) 0.3 % (0-6); HEMATOCRIT 32.2 % (36.0-47.0); HEMOGLOBIN 10.2 g/dL (12.0-15.5); LYMPHOCYTES % (AUTO) 7.3 % (13-45); MEAN CORPUSCULAR HEMOGLOBIN 27.4 pg (27.0-33.4); MEAN CORPUSCULAR HGB CONC 31.7 g/dL (32.0-36.0); MEAN CORPUSCULAR VOLUME 87 fl (80-97); MONOCYTES % (AUTO) 2.9 % (3-13); PLATELET COUNT 312 10^3/uL (150-450); RED BLOOD COUNT 3.72 10^6/uL (3.72-5.28); RED CELL DISTRIBUTION WIDTH 16.2 % (11.5-14.0); SEGMENTED NEUTROPHILS % (AUTO) 89.5 % (42-78); TOTAL CELLS COUNTED % (AUTO) 100 %; WHITE BLOOD COUNT 17.9 10^3/uL (4.0-10.5)
[2018-07-04 06:04] LABS: ALANINE AMINOTRANSFERASE 41 U/L (9-52); ALBUMIN 2.7 g/dL (3.5-5.0); ALKALINE PHOSPHATASE 165 U/L (38-126); ANION GAP 8 (5-19); ASPARTATE AMINO TRANSFERASE 30 U/L (14-36); BILIRUBIN,DIRECT 0.3 mg/dL (0.0-0.4); BILIRUBIN,TOTAL 0.3 mg/dL (0.2-1.3); BLOOD UREA NITROGEN 20 mg/dL (7-20); CARBON DIOXIDE 30 mmol/L (22-30); CHLORIDE 109 mmol/L (98-107); GLUCOSE 163 mg/dL (75-110); POTASSIUM 3.5 mmol/L (3.6-5.0); SODIUM 147.1 mmol/L (137-145); TOTAL PROTEIN 5.3 g/dL (6.3-8.2)
[2018-07-04] MEDS: IPRATROPIUM/ALBUTEROL 0.5-2.5 MG/3 ML AMPUL NEB PRN ×2 (08:41→19:57)
[2018-07-04] MEDS: AMPICILLIN SODIUM/SULBACTAM NA 3 GM in NORMAL SALINE 100 ML IV SCH (09:49)
[2018-07-04] MEDS: INSULIN LISPRO 100 UNIT/ML 3 ML VIAL SUBCUT SCH ×4 (09:49→21:55)
[2018-07-04] MEDS: DEXTROSE 5%-WATER 1000 ML 1,000 ML IV PRN (09:55)
[2018-07-04] MEDS: VANCOMYCIN HCL 1,000 MG in DEXTROSE 5%-WATER 250 ML IV SCH (11:55)
[2018-07-04] MEDS: COLLAGENASE CLOSTRIDIUM HIST. OINT 30 GM TOP SCH (11:56)
--- NOTE | 2018-07-04 11:58 | PDOC PROGRESS REPORT ---
Subjective Progress Note for:: 07/04/18 Subjective:: Daughter at bedside reported improvement in her wheezing post nebulizer therapy since last clinical evaluation. No reported chest pain or difficulty with breathing. No reported fever. P.O intake remain complete with feeding assistance. Bowel movement is satisfactory. Reason For Visit: HYPERNATREMIA,DECUBITUS FOOT ULCER,SEPSIS,SOURSE,? Physical Exam Vital Signs: Temp Pulse Resp BP Pulse Ox 98.0 F 101 H 18 136/59 H 93 07/04/18 07:23 07/04/18 08:45 07/04/18 08:45 07/04/18 07:23 07/04/18 08:45 Intake & Output 07/03/18 07/04/18 07/05/18 06:59 06:59 06:59 Intake Total 9448 972 3923 Balance 2778 538 1433 Weight 57.9 kg 59.1 kg Physical Exam: General appearance: PRESENT: no acute distress Head exam: PRESENT: atraumatic, normocephalic Respiratory exam: PRESENT: decreased breath sounds - at lung bases, wheezes - minimal wheezing in end expiratory phase Cardiovascular exam: PRESENT: RRR, +S1, +S2. ABSENT: diastolic murmur, rubs, systolic murmur Vascular exam: ABSENT: pallor GI/Abdominal exam: PRESENT: normal bowel sounds, soft. ABSENT: distended, guarding, mass, organomegaly, rebound, tenderness Extremities exam: ABSENT: pedal edema Neurological exam: PRESENT: alert, awake Skin exam: PRESENT: dry, warm, other - stage 1 sacral and stage 2 left heel pressure ulcers. Results Laboratory Results: 07/04/18 05:00 07/04/18 05:00 07/04/18 07/04/18 05:00 05:00 WBC 17.9 H RBC 3.72 Hgb 10.2 L Hct 32.2 L MCV 87 MCH 27.4 MCHC 31.7 L RDW 16.2 H Plt Count 312 Seg Neutrophils % 89.5 H Lymphocytes % 7.3 L Monocytes % 2.9 L Eosinophils % 0.3 Basophils % 0.0 Absolute Neutrophils 16.0 H Absolute Lymphocytes 1.3 Absolute Monocytes 0.5 Absolute Eosinophils 0.1 Absolute Basophils 0.0 Sodium 147.1 H Potassium 3.5 L Chloride 109 H Carbon Dioxide 30 Anion Gap 8 BUN 20 Creatinine 0.85 Est GFR ( Amer) > 60 Est GFR (Non-Af Amer) > 60 Glucose 163 H Calcium 8.0 L Total Bilirubin 0.3 AST 30 ALT 41 Alkaline Phosphatase 165 H Total Protein 5.3 L Albumin 2.7 L 06/30/18 06/30/18 06/30/18 05:10 05:10 11:32 Creatine Kinase 228 H 187 H CK-MB (CK-2) 2.60 Troponin I 0.014 NT-Pro-B Natriuret Pep 310 06/30/18 06/30/18 06/30/18 11:32 17:46 17:46 Creatine Kinase 178 H CK-MB (CK-2) 2.30 2.37 Troponin I < 0.012 < 0.012 NT-Pro-B Natriuret Pep Impressions: Chest X-Ray 06/29/18 22:23 IMPRESSION: No definite pneumonia. Foot X-Ray 06/30/18 00:00 IMPRESSION: Osteopenia. No evidence of osteomyelitis. Assessment & Plan - Diagnosis (1) Acute kidney injury Is this a current diagnosis for this admission?: Yes (2) Decubitus ulcer of left heel, stage 2 Is this a current diagnosis for this admission?: Yes (3) Decubitus ulcer of sacral region, stage 1 Is this a current diagnosis for this admission?: Yes (4) Staphylococcus septicemia Is this a current diagnosis for this admission?: Yes (5) Type 2 diabetes mellitus Qualifiers: Diabetes mellitus shelter insulin use: without fire crew specialist use Diabetes mellitus complication status: with neurologic complications Diabetes mellitus complication detail: with polyneuropathy Qualified Code(s): E11.42 - Type 2 diabetes mellitus with diabetic polyneuropathy Is this a current diagnosis for this admission?: Yes (6) HTN (hypertension) Qualifiers: Hypertension type: essential hypertension Qualified Code(s): I10 - Essential (primary) hypertension Is this a current diagnosis for this admission?: Yes Plan: Start on Ramipril 2.5 mg po daily. Follow up on renal function status. - Time Time Spent with patient: 25-34 minutes Medications reviewed and adjusted accordingly: Yes Anticipated discharge: SNF Within: Other - Inpatient Certification Based on my medical assessment, after consideration of the patient's comorbidities, presenting symptoms, or acuity I expect that the services needed warrant INPATIENT care.: Yes I certify that my determination is in accordance with my understanding of Medicare's requirements for reasonable and necessary INPATIENT services [42 CFR 412.3e].: Yes Medical Necessity: Significant Comorbidiites Make Outpatient Treatment Too Risky, Need Close Monitoring Due to Risk of Patient Decompensation, Need For IV Fluids, Need For Continuous Telemetry Monitoring, Need for Nebulizer Therapy and Monitoring of Response, Need for IV Antibiotics, Risk of Complication if Not Cared For in Hospital, Risk of Diagnosis Which Will Require Inpatient Eval/Care/Monitoring Post Hospital Care: D/C or Transfer Summary - Plan Summary Plan Summary: Continue current medication management. Start on IV Levofloxacin 250 mg daily to cover Enterobacter Cloacae in view of her persistent leukocytosis.
[2018-07-04] MEDS ORDERED: RAMIPRIL 2.5 MG CAPSULE PO SCH (13:00)
[2018-07-04] MEDS: LEVOFLOXACIN 250 MG/D5W RTU 250 MG/50 ML RTUPB IV SCH (14:37)
[2018-07-05] MEDS: DEXTROSE 5%-WATER 1000 ML 1,000 ML IV PRN ×2 (00:06→20:41)
[2018-07-05] MEDS: HEPARIN SOD (PORCINE) 5,000 UNIT/ML 1 ML SYRINGE SUBCUT SCH ×3 (05:26→21:58)
[2018-07-05] MEDS: INSULIN LISPRO 100 UNIT/ML 3 ML VIAL SUBCUT SCH ×4 (08:23→21:58)
[2018-07-05] MEDS: AMPICILLIN SODIUM/SULBACTAM NA 3 GM in NORMAL SALINE 100 ML IV SCH (09:04)
[2018-07-05] MEDS: IPRATROPIUM/ALBUTEROL 0.5-2.5 MG/3 ML AMPUL NEB PRN (10:54)
[2018-07-05] MEDS: LOSARTAN POTASSIUM 50 MG TABLET PO SCH (11:10)
[2018-07-05] MEDS: VANCOMYCIN HCL 1,000 MG in DEXTROSE 5%-WATER 250 ML IV SCH (11:10)
[2018-07-05] MEDS: COLLAGENASE CLOSTRIDIUM HIST. OINT 30 GM TOP SCH (12:12)
[2018-07-05] MEDS: LEVOFLOXACIN 250 MG/D5W RTU 250 MG/50 ML RTUPB IV SCH (12:12)
[2018-07-05] MEDS: AMPICILLIN SODIUM/SULBACTAM NA 1.5 GM in NORMAL SALINE 50 ML IV SCH ×2 (15:51→20:41)
--- NOTE | 2018-07-05 16:01 | Progress Note ---
Provider Note Provider Note: ID Consult Note Asked to review chart by Pharmacy of Ms Holland, an 82 year old female prison resident admitted on 06/30, sent from SNF because of a decreased level of responsiveness per nursing staff, and admitted for severe hypernatremia and TIO. Pt not seen or examined. Per chart review, pt is bedridden due to advanced dementia and she has chronic decubitus ulcers involving the sacrum, left heel and left knee, DM type II. On exam, she had a chronically debilidated appearance, dry oral mucosa, contracted LLE, stage I ulcer in the sacrum 1 cm uninfected appearing, knee small superficial stage 1-2 pressure ulcer 1-2 cm, and L lateral heel ulcer grade 4 2.5-3 cm down to fat with clean granulation tissue and no obvious drainage or cellulitis. She was afebrile. She had leukocytosis, hypernatremia, TIO. BCx showed growth of Staph capitis in one bottle only. U/A had no leukocyte esterase and only 5 WBC/hpf, and UCx grew E coli. Swab from the L foot heel grew MSSA and skin ines. Swab of the decubitus ulcer on her knee grew MRSA, E cloacae, and E faecalis. CXR showed no acute process. Plain films of the foot showed no evidence of osteomyelitis. Surgery was consulted and recommended Santyl to the heel for a week followed by Allevyn dressing. On 07/01, pt was starting to improve clinically along with improvement in SCr and serum sodium. ESR was 36 and CRP 6.5 one month ago. Abx: Unasyn started on 06/30-present Vancomycin 06/30-present Levaquin 07/04-present Impression/Recommendations Staph capitis pseudobacteremia - The isolation of a single blood culture bottle with a coagulase negative Staph species is most likely a contaminant and does not require dedicated antibiotic therapy. Coagulase negative staph species live ubiquitously on the skin and are frequent common blood culture contaminants. There is no compatible clinical picture or repeated isolation of the same coagulase negative Staph species to suggest otherwise. E coli asymptomatic bacteriuria - although presence of leukocyte esterase or pyuria is not enough to make diagnosis of UTI (sensitive but not specific finding), the absence of inflammatory cells in the urine is enough to strongly suggest against UTI Lower extremity decubitus ulcers - None of the patient's ulcers (sacrum, knee, and L lateral heel) were noted to be infected appearing per Surgical consultation. Ulcers were not noted as having surrounding cellulitis, erythema, or drainage. If none are infected appearing, then swabs sent to the lab do not offer meaningful information; growth reflects colonization/contamination. - Even if L heel had appeared infected earlier in the patient's course, it is possible that it may be adequately treated at this point. She has already received 5 days of antibiotics effective against the MSSA grown from the heel. In absence of an abscess (which would require source control with I&D) and oste oarticular infections, duration of therapy is generally short, in the range of 5-14 days. - Suggest discontinuing vancomycin, Levaquin and Unasyn. Thom wilson MD [facility] Infectious Diseases pager [phone]
--- NOTE | 2018-07-05 20:06 | RADIOLOGY REPORT (SQ) ---
EXAM DESCRIPTION: XR CHEST 1 VIEW COMPLETED DATE/TME: 07/05/2018 00:00 CLINICAL HISTORY: 82 years, Female, coughing/congestion COMPARISON: 06/29/2018 chest NUMBER OF VIEWS: 1 TECHNIQUE: Portable chest LIMITATIONS: None. FINDINGS: The heart size is normal. Osteopenia. Surgical clips right axilla. Nodular opacities in the right upper lobe and right perihilar region. Subsegmental atelectasis/scarring left lung base. Atheromatous change and ectasia of the thoracic aorta. No pneumothorax. IMPRESSION: New, nodular airspace opacities of the right upper lobe and right perihilar region could reflect pneumonia. Recommend follow-up to ensure resolution. copyright 2010 [employer]- All Rights Reserved
--- NOTE | 2018-07-05 21:03 | PDOC PROGRESS REPORT ---
Subjective Progress Note for:: 07/05/18 Subjective:: Patient seen by the bedside the urine culture grew E. coli with significant colony count, the wound culture is polymicrobial grew Enterobacter specie, enterococcus species and MRSA, the blood culture grew staph capitis most likely contamination, she is presently on Levaquin, vancomycin and Unasyn, the Vanco be discontinued the Levaquin be discontinued and I will continue Unasyn the E. coli is sensitive to Unasyn. Patient is somewhat responsive today compared to previous encounters she opens her eyes in response to verbal commands but she is not communicative Reason For Visit: HYPERNATREMIA,DECUBITUS FOOT ULCER,SEPSIS,SOURSE,? Physical Exam Vital Signs: Temp Pulse Resp BP Pulse Ox 98.1 F 102 H 16 145/82 H 96 07/05/18 16:00 07/05/18 16:00 07/05/18 16:00 07/05/18 16:00 07/05/18 16:00 Intake & Output 07/04/18 07/05/18 07/06/18 06:59 06:59 06:59 Intake Total 704 2518 1660 Balance 704 2518 1660 Weight 59.1 kg 61.4 kg General appearance: PRESENT: no acute distress Eye exam: PRESENT: PERRLA Cardiovascular exam: PRESENT: +S1, +S2 Neurological exam: PRESENT: alert Results Laboratory Results: 07/04/18 05:00 07/04/18 05:00 06/30/18 05:10 Blood Blood Culture - Final NO GROWTH IN 5 DAYS 06/30/18 06/30/18 06/30/18 05:10 05:10 11:32 Creatine Kinase 228 H 187 H CK-MB (CK-2) 2.60 Troponin I 0.014 NT-Pro-B Natriuret Pep 310 06/30/18 06/30/18 06/30/18 11:32 17:46 17:46 Creatine Kinase 178 H CK-MB (CK-2) 2.30 2.37 Troponin I < 0.012 < 0.012 NT-Pro-B Natriuret Pep Impressions: Foot X-Ray 06/30/18 00:00 IMPRESSION: Osteopenia. No evidence of osteomyelitis. Chest X-Ray 07/05/18 00:00 IMPRESSION: New, nodular airspace opacities of the right upper lobe and right perihilar region could reflect pneumonia. Recommend follow-up to ensure resolution. copyright 2010 [employer]- All Rights Reserved Assessment & Plan - Diagnosis (1) Sepsis Qualifiers: Sepsis type: sepsis due to unspecified organism Qualified Code(s): A41.9 - Sepsis, unspecified organism Is this a current diagnosis for this admission?: Yes (2) Decubitus ulcer of sacral region, stage 1 Is this a current diagnosis for this admission?: Yes (3) Decubitus ulcer of left heel, stage 2 Is this a current diagnosis for this admission?: Yes (4) Metabolic encephalopathy Is this a current diagnosis for this admission?: Yes (5) Hypernatremia Is this a current diagnosis for this admission?: Yes (6) Type 2 diabetes mellitus Qualifiers: Diabetes mellitus car wrecker insulin use: without car wrecker use Diabetes mellitus complication status: with neurologic complications Diabetes mellitus complication detail: with polyneuropathy Qualified Code(s): E11.42 - Type 2 diabetes mellitus with diabetic polyneuropathy Is this a current diagnosis for this admission?: Yes (7) Acute kidney injury Is this a current diagnosis for this admission?: Yes (8) Hypokalemia Is this a current diagnosis for this admission?: Yes (9) Septicemia Is this a current diagnosis for this admission?: Yes (10) E. coli UTI Is this a current diagnosis for this admission?: Yes Plan: Patient continues to improve I would continue Unasyn for few more days
[2018-07-05 21:17] LABS: ABSOLUTE EOSINOPHILS # (AUTO) 0.1 10^3/uL (0.0-0.6); ABSOLUTE LYMPHOCYTES (AUTO) 0.9 10^3/uL (0.5-4.7); ABSOLUTE MONOCYTES (AUTO) 0.6 10^3/uL (0.1-1.4); ABSOLUTE NEUT (AUTO) 13.3 10^3/uL (1.7-8.2); BASOPHILS % (AUTO) 0.2 % (0-2); EOSINOPHILS % (AUTO) 0.4 % (0-6); HEMATOCRIT 31.6 % (36.0-47.0); HEMOGLOBIN 10.1 g/dL (12.0-15.5); LYMPHOCYTES % (AUTO) 6.3 % (13-45); MEAN CORPUSCULAR HEMOGLOBIN 27.4 pg (27.0-33.4); MEAN CORPUSCULAR HGB CONC 31.9 g/dL (32.0-36.0); MEAN CORPUSCULAR VOLUME 86 fl (80-97); MONOCYTES % (AUTO) 4.3 % (3-13); PLATELET COUNT 289 10^3/uL (150-450); RED BLOOD COUNT 3.69 10^6/uL (3.72-5.28); RED CELL DISTRIBUTION WIDTH 16.1 % (11.5-14.0); SEGMENTED NEUTROPHILS % (AUTO) 88.8 % (42-78); TOTAL CELLS COUNTED % (AUTO) 100 %
[2018-07-05 22:09] LABS: ALANINE AMINOTRANSFERASE 37 U/L (9-52); ALBUMIN 2.6 g/dL (3.5-5.0); ALKALINE PHOSPHATASE 130 U/L (38-126); ANION GAP 9 (5-19); ASPARTATE AMINO TRANSFERASE 16 U/L (14-36); BILIRUBIN,DIRECT 0.2 mg/dL (0.0-0.4); BILIRUBIN,TOTAL 0.2 mg/dL (0.2-1.3); BLOOD UREA NITROGEN 12 mg/dL (7-20); CALCIUM 8.3 mg/dL (8.4-10.2); CARBON DIOXIDE 26 mmol/L (22-30); CHLORIDE 107 mmol/L (98-107); GLUCOSE 258 mg/dL (75-110); SODIUM 142.4 mmol/L (137-145); TOTAL PROTEIN 5.1 g/dL (6.3-8.2)
[2018-07-05 22:13] LABS: POTASSIUM 2.9 mmol/L (3.6-5.0)
[2018-07-05] MEDS: POTASSIUM CHLORIDE 20 MEQ/50 ML RTU IV SCH (23:19)
[2018-07-06] MEDS: POTASSIUM CHLORIDE 20 MEQ/50 ML RTU IV SCH (01:57)
[2018-07-06] MEDS: HEPARIN SOD (PORCINE) 5,000 UNIT/ML 1 ML SYRINGE SUBCUT SCH ×3 (05:02→21:26)
[2018-07-06] MEDS: AMPICILLIN SODIUM/SULBACTAM NA 1.5 GM in NORMAL SALINE 50 ML IV SCH ×4 (05:03→21:26)
[2018-07-06] MEDS: DEXTROSE 5%-WATER 1000 ML 1,000 ML IV PRN (06:06)
[2018-07-06] MEDS: INSULIN LISPRO 100 UNIT/ML 3 ML VIAL SUBCUT SCH ×4 (07:59→21:26)
[2018-07-06] MEDS: IPRATROPIUM/ALBUTEROL 0.5-2.5 MG/3 ML AMPUL NEB PRN (08:35)
[2018-07-06] MEDS: LOSARTAN POTASSIUM 50 MG TABLET PO SCH (10:47)
[2018-07-06] MEDS: COLLAGENASE CLOSTRIDIUM HIST. OINT 30 GM TOP SCH (10:48)
[2018-07-06 10:57] LABS: VANCOMYCIN,TROUGH 17.6 ug/mL (5.0-20.0)
[2018-07-06 16:18] LABS: HEMATOCRIT 34.6 % (36.0-47.0); MEAN CORPUSCULAR HEMOGLOBIN 27.1 pg (27.0-33.4); MEAN CORPUSCULAR HGB CONC 31.9 g/dL (32.0-36.0); MEAN CORPUSCULAR VOLUME 85 fl (80-97); PLATELET COUNT 273 10^3/uL (150-450); RED BLOOD COUNT 4.06 10^6/uL (3.72-5.28); RED CELL DISTRIBUTION WIDTH 16.7 % (11.5-14.0); WHITE BLOOD COUNT 11.5 10^3/uL (4.0-10.5)
[2018-07-06 16:29] LABS: ALANINE AMINOTRANSFERASE 33 U/L (9-52); ALBUMIN 2.7 g/dL (3.5-5.0); ALKALINE PHOSPHATASE 113 U/L (38-126); ANION GAP 8 (5-19); ASPARTATE AMINO TRANSFERASE 35 U/L (14-36); BILIRUBIN,DIRECT 0.4 mg/dL (0.0-0.4); BILIRUBIN,TOTAL 0.4 mg/dL (0.2-1.3); BLOOD UREA NITROGEN 12 mg/dL (7-20); CALCIUM 8.1 mg/dL (8.4-10.2); CARBON DIOXIDE 28 mmol/L (22-30); CHLORIDE 104 mmol/L (98-107); GLUCOSE 189 mg/dL (75-110); POTASSIUM 3.5 mmol/L (3.6-5.0); SODIUM 139.9 mmol/L (137-145); TOTAL PROTEIN 5.3 g/dL (6.3-8.2)
[2018-07-06 16:36] LABS: ABSOLUTE MONOCYTES # (MANUAL) 0.8 10^3/uL (0.1-1.4); ABSOLUTE NEUTROPHILS# (MANUAL) 8.7 10^3/uL (1.7-8.2); BAND NEUTROPHILS % (MANUAL) 1 % (3-5); BASOPHILS % (MANUAL) 0 % (0-2); EOSINOPHILS % (MANUAL) 0 % (0-6); LYMPHOCYTES % (MANUAL) 14 % (13-45); MONOCYTES % (MANUAL) 7 % (3-13); SEGMENTED NEUTROPHILS % (MAN) 75 % (42-78); TOTAL CELLS COUNTED 100
[2018-07-06 16:37] LABS: ANISOCYTOSIS 1+; OVALOCYTES SLIGHT; PLATELET COMMENT ADEQUATE; PLATELET LARGE PRESENT; POIKILOCYTOSIS SLIGHT
--- NOTE | 2018-07-06 21:21 | PDOC PROGRESS REPORT ---
Subjective Progress Note for:: 07/06/18 Subjective:: She was seen by the bedside Reason For Visit: HYPERNATREMIA,DECUBITUS FOOT ULCER,SEPSIS,SOURSE,? Physical Exam Vital Signs: Temp Pulse Resp BP Pulse Ox 97.5 F 101 H 14 133/61 H 96 07/06/18 19:46 07/06/18 19:46 07/06/18 19:46 07/06/18 19:46 07/06/18 19:46 Intake & Output 07/05/18 07/06/18 07/07/18 06:59 06:59 06:59 Intake Total 2518 2802 987 Balance 2518 2802 987 Weight 61.4 kg 60.1 kg General appearance: PRESENT: no acute distress Eye exam: PRESENT: PERRLA Respiratory exam: PRESENT: rales Cardiovascular exam: PRESENT: +S1, +S2 GI/Abdominal exam: PRESENT: soft Neurological exam: PRESENT: alert Results Laboratory Results: 07/06/18 16:20 07/06/18 16:20 07/05/18 07/05/18 07/06/18 21:12 21:12 10:02 WBC 15.0 H RBC 3.69 L Hgb 10.1 L Hct 31.6 L MCV 86 MCH 27.4 MCHC 31.9 L RDW 16.1 H Plt Count 289 Seg Neutrophils % 88.8 H Lymphocytes % 6.3 L Monocytes % 4.3 Eosinophils % 0.4 Basophils % 0.2 Absolute Neutrophils 13.3 H Absolute Lymphocytes 0.9 Absolute Monocytes 0.6 Absolute Eosinophils 0.1 Absolute Basophils 0.0 Sodium 142.4 Potassium 2.9 L* Chloride 107 Carbon Dioxide 26 Anion Gap 9 BUN 12 Creatinine 0.80 0.77 Est GFR ( Amer) > 60 > 60 Est GFR (Non-Af Amer) > 60 > 60 Glucose 258 H Calcium 8.3 L Total Bilirubin 0.2 AST 16 ALT 37 Alkaline Phosphatase 130 H Total Protein 5.1 L Albumin 2.6 L 07/06/18 07/06/18 07/06/18 16:05 16:05 16:20 WBC 11.5 H Cancelled RBC 4.06 Cancelled Hgb 11.0 L Cancelled Hct 34.6 L Cancelled MCV 85 Cancelled MCH 27.1 Cancelled MCHC 31.9 L Cancelled RDW 16.7 H Cancelled Plt Count 273 Cancelled Seg Neutrophils % Not Reportable Cancelled Lymphocytes % Not Reportable Cancelled Monocytes % Not Reportable Cancelled Eosinophils % Not Reportable Cancelled Basophils % Not Reportable Cancelled Absolute Neutrophils Not Reportable Cancelled Absolute Lymphocytes Not Reportable Cancelled Absolute Monocytes Not Reportable Cancelled Absolute Eosinophils Not Reportable Cancelled Absolute Basophils Not Reportable Cancelled Sodium 139.9 Potassium 3.5 L Chloride 104 Carbon Dioxide 28 Anion Gap 8 BUN 12 Creatinine 0.72 Est GFR ( Amer) > 60 Est GFR (Non-Af Amer) > 60 Glucose 189 H Calcium 8.1 L Total Bilirubin 0.4 AST 35 ALT 33 Alkaline Phosphatase 113 Total Protein 5.3 L Albumin 2.7 L 07/06/18 16:20 WBC RBC Hgb Hct MCV MCH MCHC RDW Plt Count Seg Neutrophils % Lymphocytes % Monocytes % Eosinophils % Basophils % Absolute Neutrophils Absolute Lymphocytes Absolute Monocytes Absolute Eosinophils Absolute Basophils Sodium Cancelled Potassium Cancelled Chloride Cancelled Carbon Dioxide Cancelled Anion Gap Cancelled BUN Cancelled Creatinine Cancelled Est GFR ( Amer) Cancelled Est GFR (Non-Af Amer) Cancelled Glucose Cancelled Calcium Cancelled Total Bilirubin Cancelled AST Cancelled ALT Cancelled Alkaline Phosphatase Cancelled Total Protein Cancelled Albumin Cancelled 06/30/18 06/30/18 06/30/18 05:10 05:10 11:32 Creatine Kinase 228 H 187 H CK-MB (CK-2) 2.60 Troponin I 0.014 NT-Pro-B Natriuret Pep 310 06/30/18 06/30/18 06/30/18 11:32 17:46 17:46 Creatine Kinase 178 H CK-MB (CK-2) 2.30 2.37 Troponin I < 0.012 < 0.012 NT-Pro-B Natriuret Pep Impressions: Foot X-Ray 06/30/18 00:00 IMPRESSION: Osteopenia. No evidence of osteomyelitis. Chest X-Ray 07/05/18 00:00 IMPRESSION: New, nodular airspace opacities of the right upper lobe and right perihilar region could reflect pneumonia. Recommend follow-up to ensure resolution. copyright 2010 [employer]- All Rights Reserved Assessment & Plan - Diagnosis (1) Sepsis Qualifiers: Sepsis type: sepsis due to unspecified organism Qualified Code(s): A41.9 - Sepsis, unspecified organism Is this a current diagnosis for this admission?: Yes (2) Decubitus ulcer of sacral region, stage 1 Is this a current diagnosis for this admission?: Yes (3) Decubitus ulcer of left heel, stage 2 Is this a current diagnosis for this admission?: Yes (4) Metabolic encephalopathy Is this a current diagnosis for this admission?: Yes (5) Hypernatremia Is this a current diagnosis for this admission?: Yes (6) Type 2 diabetes mellitus Qualifiers: Diabetes mellitus intermediate frame tender insulin use: without longterm use Diabetes mellitus complication status: with neurologic complications Diabetes mellitus complication detail: with polyneuropathy Qualified Code(s): E11.42 - Type 2 diabetes mellitus with diabetic polyneuropathy Is this a current diagnosis for this admission?: Yes (7) Acute kidney injury Is this a current diagnosis for this admission?: Yes (8) Hypokalemia Is this a current diagnosis for this admission?: Yes (9) Septicemia Is this a current diagnosis for this admission?: Yes (10) E. coli UTI Is this a current diagnosis for this admission?: Yes (11) Aspiration pneumonia Qualifiers: Aspiration pneumonia type: unspecified Laterality: right Lung location: upper lobe of lung Qualified Code(s): J69.0 - Pneumonitis due to inhalation of food and vomit Is this a current diagnosis for this admission?: Yes Plan: continue UNASYN for few more days
[2018-07-07] MEDS: IPRATROPIUM/ALBUTEROL 0.5-2.5 MG/3 ML AMPUL NEB PRN (02:16)
[2018-07-07] MEDS: AMPICILLIN SODIUM/SULBACTAM NA 1.5 GM in NORMAL SALINE 50 ML IV SCH ×3 (04:44→14:14)
[2018-07-07] MEDS: HEPARIN SOD (PORCINE) 5,000 UNIT/ML 1 ML SYRINGE SUBCUT SCH ×2 (07:43→14:14)
[2018-07-07] MEDS: INSULIN LISPRO 100 UNIT/ML 3 ML VIAL SUBCUT SCH ×3 (07:59→17:31)
[2018-07-07] MEDS: LOSARTAN POTASSIUM 50 MG TABLET PO SCH (09:23)
[2018-07-07] MEDS: COLLAGENASE CLOSTRIDIUM HIST. OINT 30 GM TOP SCH (09:24)
[2018-07-07] MEDS: DEXTROSE 5%-WATER 1000 ML 1,000 ML IV PRN (09:27)
[2018-07-07] MEDS ORDERED: IPRATROPIUM/ALBUTEROL 0.5-2.5 MG/3 ML AMPUL NEB PRN (14:22)
[2018-07-07] MEDS ORDERED: FUROSEMIDE INJ/PF 40 MG/4 ML SDV IV ONE (15:21)
[2018-07-07] MEDS ORDERED: FUROSEMIDE INJ/PF 40 MG/4 ML SDV ONE (15:24)
[2018-07-07 16:31] VITALS: BP 136/52
--- NOTE | 2018-07-07 18:36 | PDOC PROGRESS REPORT ---
Subjective Progress Note for:: 07/07/18 Subjective:: Patient seen by the bedside she has abdominal distention, a bladder scan was done by the nursing staff, she was found to have urinary retention, a Bonilla catheter was inserted Reason For Visit: HYPERNATREMIA,DECUBITUS FOOT ULCER,SEPSIS,SOURSE,? Physical Exam Vital Signs: Temp Pulse Resp BP Pulse Ox 97.4 F 100 16 136/52 H 95 07/07/18 16:20 07/07/18 17:20 07/07/18 17:20 07/07/18 16:20 07/07/18 17:20 Intake & Output 07/06/18 07/07/18 07/08/18 06:59 06:59 06:59 Intake Total 2802 1637 100 Balance 2802 1637 100 Weight 60.1 kg 62.3 kg General appearance: PRESENT: mild distress Eye exam: PRESENT: PERRLA Neck exam: PRESENT: JVD Respiratory exam: PRESENT: crackles Cardiovascular exam: PRESENT: +S1, +S2 GI/Abdominal exam: PRESENT: distended Neurological exam: PRESENT: alert Results Laboratory Results: 07/06/18 16:20 07/06/18 16:20 06/30/18 06/30/18 06/30/18 05:10 05:10 11:32 Creatine Kinase 228 H 187 H CK-MB (CK-2) 2.60 Troponin I 0.014 NT-Pro-B Natriuret Pep 310 06/30/18 06/30/18 06/30/18 11:32 17:46 17:46 Creatine Kinase 178 H CK-MB (CK-2) 2.30 2.37 Troponin I < 0.012 < 0.012 NT-Pro-B Natriuret Pep Impressions: Foot X-Ray 06/30/18 00:00 IMPRESSION: Osteopenia. No evidence of osteomyelitis. Chest X-Ray 07/05/18 00:00 IMPRESSION: New, nodular airspace opacities of the right upper lobe and right perihilar region could reflect pneumonia. Recommend follow-up to ensure resolution. copyright 2010 [employer]- All Rights Reserved Assessment & Plan - Diagnosis (1) Sepsis Qualifiers: Sepsis type: sepsis due to unspecified organism Qualified Code(s): A41.9 - Sepsis, unspecified organism Is this a current diagnosis for this admission?: Yes (2) Decubitus ulcer of sacral region, stage 1 Is this a current diagnosis for this admission?: Yes (3) Decubitus ulcer of left heel, stage 2 Is this a current diagnosis for this admission?: Yes (4) Metabolic encephalopathy Is this a current diagnosis for this admission?: Yes (5) Hypernatremia Is this a current diagnosis for this admission?: Yes (6) Type 2 diabetes mellitus Qualifiers: Diabetes mellitus half-way insulin use: without termite technician use Diabetes m ellitus complication status: with neurologic complications Diabetes mellitus complication detail: with polyneuropathy Qualified Code(s): E11.42 - Type 2 diabetes mellitus with diabetic polyneuropathy Is this a current diagnosis for this admission?: Yes (7) Acute kidney injury Is this a current diagnosis for this admission?: Yes (8) Hypokalemia Is this a current diagnosis for this admission?: Yes (9) Septicemia Is this a current diagnosis for this admission?: Yes (10) E. coli UTI Is this a current diagnosis for this admission?: Yes (11) Aspiration pneumonia Qualifiers: Aspiration pneumonia type: unspecified Laterality: right Lung location: upper lobe of lung Qualified Code(s): J69.0 - Pneumonitis due to inhalation of food and vomit Is this a current diagnosis for this admission?: Yes (12) Abdominal distension Is this a current diagnosis for this admission?: Yes Plan: CT scan of the abdomen is ordered (13) Fluid overload Qualifiers: Hypervolemia type: unspecified Qualified Code(s): E87.70 - Fluid overload, unspecified Is this a current diagnosis for this admission?: Yes Plan: D/C IV FLUID ,Give lasix 40mg IV
[2018-07-07 19:47] LABS: ABSOLUTE LYMPHOCYTES (AUTO) 1.1 10^3/uL (0.5-4.7); ABSOLUTE MONOCYTES (AUTO) 0.2 10^3/uL (0.1-1.4); ABSOLUTE NEUT (AUTO) 9.3 10^3/uL (1.7-8.2); BASOPHILS % (AUTO) 0.2 % (0-2); EOSINOPHILS % (AUTO) 0.2 % (0-6); HEMATOCRIT 36.1 % (36.0-47.0); HEMOGLOBIN 11.6 g/dL (12.0-15.5); LYMPHOCYTES % (AUTO) 10.5 % (13-45); MEAN CORPUSCULAR HEMOGLOBIN 27.7 pg (27.0-33.4); MEAN CORPUSCULAR HGB CONC 32.1 g/dL (32.0-36.0); MEAN CORPUSCULAR VOLUME 86 fl (80-97); MONOCYTES % (AUTO) 2.2 % (3-13); PLATELET COUNT 343 10^3/uL (150-450); RED BLOOD COUNT 4.18 10^6/uL (3.72-5.28); RED CELL DISTRIBUTION WIDTH 16.5 % (11.5-14.0); SEGMENTED NEUTROPHILS % (AUTO) 86.9 % (42-78); TOTAL CELLS COUNTED % (AUTO) 100 %; WHITE BLOOD COUNT 10.7 10^3/uL (4.0-10.5)
[2018-07-07 20:01] LABS: ALANINE AMINOTRANSFERASE 40 U/L (9-52); ALBUMIN 3.2 g/dL (3.5-5.0); ALKALINE PHOSPHATASE 129 U/L (38-126); ANION GAP 14 (5-19); ASPARTATE AMINO TRANSFERASE 26 U/L (14-36); BILIRUBIN,DIRECT 0.2 mg/dL (0.0-0.4); BILIRUBIN,TOTAL 0.4 mg/dL (0.2-1.3); BLOOD UREA NITROGEN 16 mg/dL (7-20); CALCIUM 8.7 mg/dL (8.4-10.2); CARBON DIOXIDE 26 mmol/L (22-30); CHLORIDE 99 mmol/L (98-107); GLUCOSE 206 mg/dL (75-110); POTASSIUM 3.6 mmol/L (3.6-5.0); SODIUM 139.2 mmol/L (137-145)
--- NOTE | 2018-07-07 21:23 | Death Summary ---
Summary Date : 07/07/18 Time of :: 20:00 Autopsy: No Resuscitation Status: Do Not Resuscitate - Final Diagnosis (1) Sepsis Is this a current diagnosis for this admission?: Yes (2) Decubitus ulcer of sacral region, stage 1 Is this a current diagnosis for this admission?: Yes (3) Decubitus ulcer of left heel, stage 2 Is this a current diagnosis for this admission?: Yes (4) Metabolic encephalopathy Is this a current diagnosis for this admission?: Yes (5) Hypernatremia Is this a current diagnosis for this admission?: Yes (6) Type 2 diabetes mellitus Is this a current diagnosis for this admission?: Yes (7) Acute kidney injury Is this a current diagnosis for this admission?: Yes (8) Hypokalemia Is this a current diagnosis for this admission?: Yes (9) Septicemia Is this a current diagnosis for this admission?: Yes (10) E. coli UTI Is this a current diagnosis for this admission?: Yes (11) Aspiration pneumonia Is this a current diagnosis for this admission?: Yes (12) Abdominal distension Is this a current diagnosis for this admission?: Yes (13) Acute urinary retention Is this a current diagnosis for this admission?: Yes Hospital Course:: Patient is a 82-year-old female, advanced dementia ,chronic decubitus ulcer she was admitted on 06/30/2018 for evaluation of severe hypernatremia, elevated serum creatinine consistent with acute kidney injury. I called the intermediate staff for them to refer patient to the emergency room for further evaluation of abnormal routine lab work that was done, the lab work demonstrated severe hypernatremia, acute kidney injury, in the emergency room she was found to have severe leukocytosis the WBC was 20,000, the initial chest x-ray did not demonstrate any infiltrate to suggest pneumonia patient was a DNR status, I explained to the patient's family that hypernatremia is a poor prognosis,Typically is a reflection of severe brain damage. She was admitted to the hospital treated with 5% dextrose IV antibiotic, she was seen by the surgeon for evaluation of the decubitus ulcer affecting the sacrum knee and heel. No history could be obtained from the patient because she is nonverbal. The electrolytes were corrected, the kidney function improved with hydration. She has E. coli UTI, aspiration pneumonia polymicrobial infection of the decubitus ulcer, she was initially empirically treated with IV antibiotic including Unasyn, vancomycin ultimately this was transitioned to IV Unasyn yesterday she was noticed to develop acute urinary retention, a Bonilla catheter was inserted also noticed was abdominal distention she was supposed to obtain CAT scan of the abdomen and pelvis but she before the CAT scan could be obtained
== END 2018-07-07 21:10 | DRG 871 ==
LOC: ER 22:17 → EH 06-30 01:57 → 4S 06-30 05:00
PROVIDERS: ADMIT Internal Medicine; ATTEND Internal Medicine
PROC: 3E0F73Z Introduction of Anti-inflammatory into Respiratory Tract, Via Natural or Artificial Opening (ICD-10-PCS; principal; 2018-07-04)
DX: A41.02 Sepsis due to Methicillin resistant Staphylococcus aureus (principal); G93.41 Metabolic encephalopathy; J69.0 Pneumonitis due to inhalation of food and vomit; E87.0 Hyperosmolality and hypernatremia; N17.9 Acute kidney failure, unspecified; N39.0 Urinary tract infection, site not specified; E87.1 Hypo-osmolality and hyponatremia; B96.20 Unspecified Escherichia coli [E. coli] as the cause of diseases classified elsewhere; B95.2 Enterococcus as the cause of diseases classified elsewhere; E86.0 Dehydration; Z66 Do not resuscitate; L89.151 Pressure ulcer of sacral region, stage 1; L89.622 Pressure ulcer of left heel, stage 2; E87.6 Hypokalemia; F03.90 Unspecified dementia, unspecified severity, without behavioral disturbance, psychotic disturbance, mood disturbance, and anxiety; R33.9 Retention of urine, unspecified; L89.892 Pressure ulcer of other site, stage 2; E78.5 Hyperlipidemia, unspecified; M19.90 Unspecified osteoarthritis, unspecified site; I10 Essential (primary) hypertension; E11.42 Type 2 diabetes mellitus with diabetic polyneuropathy; D64.9 Anemia, unspecified; B95.61 Methicillin susceptible Staphylococcus aureus infection as the cause of diseases classified elsewhere; E87.70 Fluid overload, unspecified; Z90.710 Acquired absence of both cervix and uterus; Z79.4 Long term (current) use of insulin; Z79.899 Other long term (current) drug therapy; Z79.890 Hormone replacement therapy
CPT/HCPCS: 36415; 71045; 80048; 80053; 80061; 80076; 80202; 80307; 81001; 82140; 82150; 82550; 82553; 82565; 82803; 82962; 83036; 83605; 83690; 83735; 83880; 84100; 84439; 84443; 84484; 85025; 85610; 85730; 87040; 87070; 87077; 87086; 87088; 87186; 87205; 93005; 93010; 94640; 96361; 96374; 99285; J0295; J1644; J1815; J1940; J1956; J3370; J3480; J3490; J7060; J7620